=== PATIENT | male | born 1945 | race Caucasian/White ===

== ENCOUNTER 2018-03-22 07:25 | Day surgery (SDC) | payer MEDICARE, OTHER, SELFPAY ==
[2018-03-22] VITALS (10 sets, daily range): BP systolic 99–119; BP diastolic 71–90; PULSE 60–87; RESP 14–18; TEMP 36.1–36.5; O2SAT 93–98; BMI 32.3
--- NOTE | 2018-03-22 09:01 | PCM.HP.BLA ---
History and Physical Date of Admission: 03/22/18 HISTORY AND PHYSICAL ? Surendra Mcnally 1945 ? ? REFERRING PHYSICIAN: ~Fermin Irene DO ? CHIEF COMPLAINT: ~~Consult (Consult Inguinal hernia) ? HPI: uSrendra is a 72 year old male with a complaint of a bulge ~in his right inguinal region. ~The patient notes discomfort in this area with lifting, coughing and moving. ~The symptoms have increased, over the past few weeks. ? The patient notes no symptoms of bowel obstruction and denies nausea or vomiting. The patient was seen by his primary care physician ~who felt the patient has a hernia. ~Surendra was referred for evaluation and treatment. ? The patient is CT scan for follow-up of his known ~malignancy. ~On November 03, 2017 which demonstrated bilateral hernias with a right inguinal hernia, having small bowel present within the hernia defect. ? The patient had a transitional cell carcinoma and underwent robotic-assisted laparoscopic radical cystectomy in June 05, 2017. ~As a permanent right lower quadrant ileostomy. ? The patient is followed up by Dr. Grayson Benton and is currently receiving neoadjuvant chemotherapy surgical procedure left to be timed to his chemotherapy treatment. ? The patient also has a history of sick sinus syndrome, tachybradycardia syndrome and has a pacemaker. ~His computer installer is Dr. Eliecer Marcelo. ? We contacted Dr. Marcelo's office who noted that the patient was appropriate for surgical intervention locally and defined out for how many days. ~We can hold his anticoagulation prior to surgery and ~he will need a Lovenox bridge. ~ ? Dr. Benton's office had no specific concerns relative to timing of his surgical procedure relative to his immunotherapy ? The patient is being seen by me today at the request of Dr. Fermin Escalona DO for my opinion and advice regarding symptomatically right inguinal hernia. ? The patient returns today wanting postpone his surgery. ~He wanted to make sure that he is having no progression of his transitional cell carcinoma and wants to have CT scans prior to his surgical intervention. ~He understood he was due for CT scan in February. ~They also have additional questions concerning the surgical repair including questions related to mesh and the progression of the surgery and the timing of his Lovenox bridge. ? ? PAST?MEDICAL?HISTORY PAST MEDICAL HISTORY Diagnosis Date Acid reflux ? Atrial fibrillation (HCC) ? Atrioventricular block ? ? slow ventricular response rate (bradycardia) and severe pauses during ongoing AF Bradycardia ? ? severe bradycardia and pauses during AF; symptomatic Catheter-associated urinary tract infection (HCC) 02/14/2016 Chronic low back pain ? DJD (degenerative joint disease), lumbar ? DVT of lower extremity (deep venous thrombosis) (HCC) 2013 ? left leg Erectile dysfunction ? Essential hypertension ? Hiatal hernia ? History of recurrent UTI (urinary tract infection) ? Hypotestosteronism ? Lumbar disc herniation ? Pacemaker 06/2016 ? per Dr Marcelo Paroxysmal atrial fibrillation (HCC) ? ? previously paroxysmal; per Dr. Marcelo he plans to pursue sinus rhythm in the future Paroxysmal tachycardia (HCC) ? ? intermittent rapid ventricular response rates to AF; poorly controlled; medical therapy compromised by intermittent bradycardia Persistent atrial fibrillation (HCC) ? ? paroxysmal until recently in 01/2016 became persistent Primary cancer of bladder with metastasis to other site (HCC) ? ? prostate involvement; chemotherapy initiated 02/12/2016 Sick sinus syndrome (HCC) ? Sleep apnea ? ? suspected clinically but apparently not yet demonstrated by formal testing Syncope ? Tachycardia-bradycardia syndrome (HCC) ? ? symptomatic Urinary tract infection 02/14/2016 ? admitted to [facility] with UTI (E. Faecalis) probably catheter related ? ? PAST?SURGICAL?HISTORY PAST SURGICAL HISTORY Procedure Laterality Date CYSTOSCOPY ? ? ECHO ? 01/2014 ? LVEF 60%; mild LVH KNEE SURGERY HX Right 1981 ? orthoscope, Dr. Evans LAP UMBILICAL HERNIA REPAIR ? ? NEPHROSTOMY CATHETER ? 06/05/2016 ? cystectomy/ prostatectomy PAST SURGICAL HISTORY OF ? 2006 ? calcium removed from disk PHARMACOLOGIC NUCLEAR STRESS ? 10/12/2014 ? no ischemia; LVEF 64% PORTOCATH PLACEMENT Right 02/07/2016 REVISION OF KNEE JOINT Left 02/2015 TOTAL KNEE REPLACEMENT Left 1997 URETERAL STENT Right ? ? ? CURRENT?MEDICATIONS ? Current Outpatient Prescriptions: magnesium oxide (MAG-OX) 400 mg tablet Take 400 mg by mouth every other day. apixaban (ELIQUIS) 5 mg tab tab(s) Take 1 tablet by mouth twice daily. cetirizine (ZYRTEC) 10 mg tablet Take 1 tablet by mouth once daily. ondansetron (ZOFRAN, HYDROCHLORIDE,) 8 mg tablet Take 1 tablet by mouth every 8 hours as needed for Nausea/Vomiting. melatonin 3 mg Take 10 mg by mouth as needed. Pt takes 10 mg as needed metoprolol succinate ER (TOPROL XL) 50 mg 24 hr tablet Take 1 tablet by mouth twice daily. potassium chloride ER (KLOR-CON M20) 20 mEq tablet Take 1 tablet by mouth every evening. Omeprazole 40 mg capsule Take 1 capsule by mouth every morning. albuterol HFA (PROVENTIL HFA) 90 mcg/actuation inhaler Inhale 2 Puffs as instructed four times daily as needed (for cough or lung congestion). diltiazem CD (CARDIZEM CD) 180 mg 24 hr capsule Take 1 capsule by mouth twice daily. VIT C/VIT E ACETATE/LUTEIN/MIN (OCUVITE LUTEIN ORAL) Take 1 tablet by mouth once daily. ferrous sulfate (IRON, FERROUS SULFATE,) 325 mg (65 mg iron) tablet Take 325 mg by mouth daily with breakfast. iv contrast (will be provided with radiology test) CT Chest ABD/PEL-Inject, intravenously, once for 1 dose.No IV access, insert saline lock prior to the beginning of sedation, infusion, injection of imaging exam. Discontinue saline lock post exam. If Pt. has a central line or IVAD, may access for administration according to line specific nursing protocol. Once exam is complete flush line and de-access according to line specific nursing protocol in the CT contrast administration guidelines link. enteric contrast (will be provided with radiology test) For CT CHESTABD/PEL W IVCON Routine order Administer, As Directed One Time Only, via Oral, Rectal, both Oral and Rectal, Enteric Tube, Stoma or Indwelling Catheter, ~Enteric Contrast as designated per enteric contrast guidelines enoxaparin (LOVENOX) 40 mg/0.4 mL syrg Inject 0.4 mL subcutaneously every 24 hours. ? No current facility-administered medications for this visit. ? ALLERGIES: Amoxicillin; Bactrim [Sulfamethoxazole-Trimethoprim] ? PERSONAL HISTORY: SOCIAL?HISTORY Social History ~~Marital status: ~~~~~~~~~~~~Spouse name: ~~~~~~~~~~~~~~~~~~ ~~Years of education: ~~~~~~~~~~~~~~~~Number of children: ~~~~~~~~~~ ? Social History Main Topics ~~Smoking status: Former Smoker ~~~~~~~~~~~~~~~~~~~~~~~~~~~~~~~~~~~~~~~~~~~~~~~~~~~~~~~~ ~~~~~Packs/day: 0.50 ~~~~~Years: 1.00 ~~~ ~~~~~Types: Cigarettes ~~~~~Start date: 07/27/1964 ~~~~~Quit date: 07/27/1965 ~~Smokeless tobacco: Former User ~~~~~~~~~~~~~~~~~~ ~~~~~Types: Chew ~~~~~Quit date: 07/27/1985 ~~Alcohol use: No ~~~~~~~~~ ~~Drug use: No ~~~~~~~~~ Other Topics ~~~~~~~~~~~Concern Blood Transfusions ~~~~~No Caffeine Concern ~~~~~~~No ~~Comment:1-2 cups daily ? ? FAMILY HISTORY: FAMILY?HISTORY FAMILY HISTORY Problem Relation Age of Onset Stroke Father ? heart disease [OTHER] Father ? Breast Cancer Mother ? Stroke Mother ? heart disease [OTHER] Mother ? pacemaker [OTHER] Mother ? heart disease [OTHER] Brother ? heart disease [OTHER] Sister ? Stroke Brother ? Ischemic Heart Disease Brother ? Heart Brother ? COPD Sister ? Heart Sister ? ? REVIEW OF SYMPTOMS: ~~The review of systems data was entered by the nurse and reviewed by me ? There are no exam notes on file for this visit. ~ PHYSICAL EXAMINATION: ? General: ~The patient is 72 year old male, well nourished, well hydrated in no acute distress. ~The patient is oriented to time, place, and person. ? VITALS: Blood pressure 116/68, pulse 80.~There is no height or weight on file to calculate BMI.~ ? HEENT: ~Normal cephalic, ataumatic, pupils are equally round, sclera are anicteric, mucous membranes are moist, oropharynx is clear. ~Neck has no masses, asymmetry or lymphadenopathy. ~Thyroid is unremarkable. ? Respiratory: ~Clear to auscultation and percussion. ~Normal respiratory excursion and pattern. ? Cardiac: ~Examination is regular rate and rhythm. ? Abdominal exam: ~Soft, nontender, ~with no palpable masses. ~He has a right lower quadrant urostomy No hepatosplenomegaly. ~A large, reducible right inguinal hernia, smaller left inguinal, and a supraumbilical hernia ? Rectal exam: ~exam deferred ? Extremities: ~no clubbing, cyanosis or edema. ~No adenopathy. ? Other: ? ? LABORATORY VALUES: As Noted ? RADIOLOGIC STUDIES: ~As Noted ? Assessment ~ IMPRESSION: right inguinal hernia, current neoadjuvant treatment for bladder cancer, tachybradycardia syndrome, anticoagulation, pacemaker ? PLAN: ~~My plan is to perform a open right inguinal hernia repair with mesh. ~The planned surgical procedure was discussed extensively with the patient. ~The risks, benefits, anticipated outcomes and possible complications were mentioned. ~Surendra bassettands that all hernia repair surgery has a chance of recurrence and/or chronic post operative pain. ~My staff has also explained the procedure in understandable terms and the patient was given the option to take printed material concerning the planned procedure. ~The patient had the opportunity to ask questions concerning the planned procedure. ~The patient freely consents to the planned procedure. ? We contacted Dr. Marcelo's office who noted that the patient was appropriate for surgical intervention locally and defined out for how many days. ~We can hold his anticoagulation prior to surgery and ~he will need a Lovenox bridge. - ~We recommended holding his Eliquis for 5 days by her to surgery, starting his Lovenox. ~4 days prior to surgery and likely restarting his Eliquis the day after surgery. ~The patient and his understand the plan. ? We will order a CT scan of the chest, abdomen and pelvis, which the patient can obtain within the next week and we will plan for surgical intervention on March 22. ? We discussed all their~are additional questions and they were answered satisfactorily. ~ ? Dr. Benton's office had no specific concerns relative to timing of his surgical procedure relative to his immunotherapy ? My findings have been communicated to ~Fermin Escalona DO via shared medical record. ~This note will be forwarded to Dr. Fermin Escalona DO. ? Diagnoses: (R19.03) Right lower quadrant abdominal mass ~(primary encounter diagnosis) (R91.8) Lung nodules (K40.90) Right inguinal hernia (I44.30) Atrioventricular block (I49.5) Tachycardia-bradycardia syndrome (HCC) ? Anticipated CPT Code: open right inguinal hernia repair with mesh - 26304-456 ? Anticipated Anesthetic: MAC with local ? Patient weight: ~Blood pressure 116/68, pulse 80.~~~~BMI: ~There is no height or weight on file to calculate BMI. ? Planned antibiotic: clindamycin 600mg IVPB applications trainer to OR ? SCDs needed - Yes ~~~~~ Return to Clinic: The patient is instructed to follow-up with me 1 week post operatively. ? Rommel Gamble MD
--- NOTE | 2018-03-22 09:10 | HERN_PTH ---
PATIENT: GREG HAMPTON LOC: [facility] [place] U#:[id number] AGE/SX: 72/M ROOM: RE03/22/[address]: Dr. Rommel Gamble MD : 1945 BED: DIS: 03/22/2018 SPEC #: [id number] RECD: 03/22/18 14:42 STATUS: EM RECorazon #: [id number] GUSTAVO: 03/22/18 09:[address]: Rommel Gamble DEPT: SURGICAL PATHOLOGY RECD BY: Moiz Lennon ENTERED: 03/22/18 14:42 SP TYPE: Hernia OTHR DR: Dr. Fermin Escalona, DO Tissues: HERNIA Procedures: Surgery Specimen Level II HEADER OPERATION: Right inguinal hernia repair with mesh PRE-OP DIAGNOSIS: Right inguinal hernia TISSUE SUBMITTED: Right hernia sac MICROSCOPIC DIAGNOSIS Right hernia sac, herniorrhaphy: Hernia sac with fibrosis and recent hemorrhage. AM:nadeen 03/23/18 MICROSCOPIC DESCRIPTION Slides are reviewed. GROSS DESCRIPTION Received in fixative is one container labeled with the patient's name and designated right inguinal hernia sac. The specimen consists of a smooth, glistening fragment of dark reddish-acevedo soft tissue measuring 13 x 4.5 x 0.5 cm. Sections do not reveal nodularities or mass lesions. Water Jet Loom Fixer sections are submitted in one cassette. / AM:nadeen 03/22/18 TC:5 CPT: 39495
[2018-03-22] MEDS: Bupivacaine Mpf 0.5% 30 ML VIAL (10:42)
--- NOTE | 2018-03-22 10:47 | PCM.OPRPT ---
Report of Operation Date of Procedure: 03/22/18 Pre-Operative Diagnosis: incarcerated right inguinal hernia with scrotal component Post-Operative Diagnosis: incarcerated right inguinal hernia with scrotal component - indirect with sliding cord structures Surgery/Procedure Performed:: Right inguinal hernia repair - indirect with extra large Bard mesh perfix plug - Ref [id number], Lot [id number] - EXp - 02/21/2020 senior risk manager: None Type of Anesthesia:: MAC Anesthesiologist: Randolph Devlin - ASA3 Specimen's removed: hernia sac, ileoinguinal nerve Estimated Blood Loss (mL): 50 Fluids Replaced: 1000 Description of Procedure: The patient was brought to the operating suite. Sign in was performed verifying patient, site, procedure, position, and DVT prophylaxis with SCDs. Patient received 600mg clindamycin antibiotic prophylaxis. The patient has a large right inguinal hernia with a scrotal component. This was not reducible Following induction of IV sedation, the patients right inguinal region was prepped and draped in the usual fashion. Timeout was performed verifying patient, site, position. Local anesthetic was injected at the site of the anterior superior iliac spine for a regional block. The 50-50 mixture of lidocaine and Marcaine was then injected along the planned course of the skin incision. A linear incision was made and dissection carried down to the external oblique aponeurosis. Traversing veins ligated with 3-0 Vicryl ties and divided. Local anesthetic was then injected into the inguinal canal. A clean scalpel blade was used to open the lower canal in the direction of the fibers and a Metzenbaum scissor was used to further dissect and open the canal. Following this, the spermatic cord and large hernia was surrounded at the level of the pubic tubercle and brought up in the operative field with a Adi drain. The hernia sac was opened and the small bowel was retracted and returned to the abdominal cavity. Dissection was continued up to the internal ring clearing the cremasteric fibers. The patient was noted to have an indirect inguinal hernia. The hernia sac had a significant sliding component with the cord structures sliding into the sac. The large sac was dissected, excess excised and the sac closed reperitonealizing the cord structures. Dissection of the cord was undertaken which demonstrated no additional indirect inguinal hernia. An Extra large plug was placed and secured with 0 prolene sutures. Onlay mesh was secured using a Bard keyhole shaped mesh secured at the level of the pubic tubercle and along the ilioinguinal ligament inferiorly using an 0 Prolene suture. Next an 0 Prolene suture was used to secure the mesh to the transversus arch. The tails of the mesh were placed around the spermatic cord to create a new internal ring and the tails closed with a running 0 Prolene suture. The ileoinguinal nerve was excised due to the fact that it was in the way of the superior mesh secure. The spermatic cord was returned to its anatomic position. The external oblique was closed with a running 0 Prolene suture. Subcutaneous fat was closed with interrupted 3-0 Vicryl suture. Skin was closed with a running 4-0 Monocryl subcuticular sutures. Steri-Strips and bandages were applied. The patient was brought to recovery room in stable condition.
--- NOTE | 2018-03-22 12:24 | PCM.DC.HER ---
Discharge Diet: Light diet - advance as tolerated Discharge Activity: Return to Normal Activity, May Drive - when you are no longer taking narcotic pain medications., May Shower - with the bandage in place 1-2 days after surgery. Lifting Restrictions: 20 pounds for 8 weeks. Additional Activity Instructions:: Climbing stairs is fine, walking is encouraged. Sitting in bed may be uncomfortable. Sitting up using your lateral muscles (sitting up sideways) is usually more comfortable. Do not drive, work heavy equipment of sign legal documents for 24 hours. If your hernia repair was an ingunial repair, you may have scrotal swelling, an ice pack and/or athletic support can provide more comfort. Pain medications may cause nausea, you should typically eat light foods as you take your pain medications. Pain medications may also cause constipation. If you have difficulty with this, discuss with your doctor. Call your doctor if your incision/area has: Continuous Slow Oozing, Sudden Increased Bleeding, Increased Pain/ Swelling, Increased Redness, Foul Smelling Discharge Call your doctor if you observe: Fever of 101 or Higher Suture Line Care: Avoid Pulling/Pushing, Avoid Pinching/Bending Additional Dressing/Incision Instructions:: Leave the operative bandage on for 2-3 days. When you remove the bandage, leave the steri-strips on place until your follow up appointment or they fall off. Additional Instructions: take eliquis tonight at 6pm, take last lovenox shot today at 6pm Allergies/Adverse Reactions: Allergies amoxicillin [Amoxicillin] Allergy (Verified 03/15/18 11:07) Rash rivaroxaban [From Xarelto] Allergy (Verified 03/22/18 07:48) Other sulfamethoxazole [From Bactrim] Allergy (Verified 03/15/18 11:07) Hives trimethoprim [From Bactrim] Allergy (Verified 03/15/18 11:07) Hives Medications to take at Discharge Mv-Min/FA/Vit K/Lycop/Lut/Zeax [Ocuvite Eye Plus Multi Tablet] 1 ea PO DAILY 03/05/16 Ferrous Sulfate 325 mg PO DAILY #0 04/05/16 diltiazem CD 180 mg capsule,extended release 24 hr 180 mg PO BID #180 cap 10/17/17 melatonin 5 mg tablet 5 mg PO QHS PRN tab 12/22/17 magnesium oxide 400 mg tablet 400 mg PO QODAY 12/24/17 omeprazole 20 mg capsule,delayed release 20 mg PO DAILY cap 12/24/17 Apixaban [Eliquis] 5 mg PO BID 03/15/18 Atezolizumab [Tecentriq] 1,200 mg IV X1 03/15/18 Cetirizine HCl [Zyrtec] 10 mg PO DAILY PRN 03/15/18 Metoprolol Succinate [Toprol Xl] 50 mg PO BID 03/15/18 Potassium Chloride [K-Tab ER] 20 meq PO QDAY 03/15/18 albuterol sulfate HFA 90 mcg/actuation aerosol inhaler 2 puff INHALATION Q6H PRN PRN #8.5 g 03/15/18 Oxycodone [Oxyir] 5 mg PO Q6H PRN PRN 7 Days #14 tab 03/22/18 The following prescriptions were given: Oxycodone [Oxyir] 5 mg PO Q6H PRN PRN 7 Days #14 tab PRN Reason: Pain Primary Care Physician: Fermin Escalona DO [Primary Care Provider] - Test Results: Test results from this visit will be discussed in further detail at your follow-up appointment, if applicable. Please Follow Up With: Rommel Gamble MD - [phone] When: Plan to have a follow up appointment in 7 days. Call to schedule.
== END 2018-03-22 13:30 | disposition home or self-care (01) ==
LOC: SDC 07:25 → AC 07:27
PROVIDERS: Family Provider Family Medicine; PCP Family Medicine; Visit Provider Surgery
PROC: (CPT 49507; principal; 2018-03-22 09:00)
DX: K40.30 Unilateral inguinal hernia, with obstruction, without gangrene, not specified as recurrent (principal); C67.9 Malignant neoplasm of bladder, unspecified; I49.5 Sick sinus syndrome; K21.9 Gastro-esophageal reflux disease without esophagitis; I48.0 Paroxysmal atrial fibrillation; G89.29 Other chronic pain; M54.5 Low back pain; I10 Essential (primary) hypertension; Z87.440 Personal history of urinary (tract) infections; Z79.01 Long term (current) use of anticoagulants; Z95.0 Presence of cardiac pacemaker; G47.30 Sleep apnea, unspecified
CPT/HCPCS: 49507; 88302; 93005; J7120; A4216; C1781

== ENCOUNTER → 2019-05-31 15:36 | Outpatient (CLI) | payer MEDICARE, OTHER, SELFPAY ==
[2019-05-30 11:30] VITALS: BMI 32.9
[2019-06-04 03:06] LABS: Clam <0.10 kU/L (Class 0); Codfish <0.10 kU/L (Class 0); Corn <0.10 kU/L (Class 0); Egg, White <0.10 kU/L (Class 0); Milk (Cow) 0.17 kU/L (Class 0/I); Peanut <0.10 kU/L (Class 0); SCALLOP <0.10 kU/L (Class 0); SESAME SEED <0.10 kU/L (Class 0); Shrimp <0.10 kU/L (Class 0); Soybean <0.10 kU/L (Class 0); Strawberry <0.10 kU/L (Class 0); Walnut, (Food) <0.10 kU/L (Class 0); Wheat <0.10 kU/L (Class 0)
[2019-06-04 11:40] LABS: Banana 0.56 kU/L (Class II)
== END ==
PROVIDERS: Family Provider Family Medicine; PCP Family Medicine; Referring Provider Otolaryngology; Visit Provider Otolaryngology
DX: T78.40XA Allergy, unspecified, initial encounter (principal)
CPT/HCPCS: 36415; 86003

== ENCOUNTER → 2019-06-30 10:14 | Outpatient (CLI) | payer MEDICARE, OTHER, SELFPAY ==
[2019-06-08 11:51] VITALS: BMI 32.9
--- NOTE | 2019-06-30 16:09 | NEURO ---
NCS and/or EMG Patient Report HPI: Patient is a 74-year-old male who presented with numbness and tingling in the right hand. Patient is right-handed. Patient does not have H/O any injury to the right hand or any surgeries in the right hand. Patient does not have a history of diabetes. Patient has history of bladder and prostate cancer and has received chemotherapy and going through immunotherapy. 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 Physical Exam: Tenderness of the right wrist noted, Tinel's sign slightly positive at right wrist. Mild atrophy of the thenar and hypothenar muscles noted in right wrist. Decreased sensation to light touch is noted in right hand fingers, especially right thumb, index and middle fingers. Findings: 1. Right median sensory nerve response was non-recordable. 2. There is prolongation of distal latency of the right median motor nerve response with reduced amplitude of proximal CMAP and slightly decreased nerve conduction velocity. 3. There is prolongation of distal latency of right ulnar sensory nerve response. 4. There is decreased insertional activity and decreased recruitment of right abductor pollicis brevis and first dorsal interossei muscles. Impression: 1. 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 2. Findings are also consistent with right ulnar sensory neuropathy. Recommendation: 1. patient recommended to wear right hand and elbow splints as much as possible. 2. Patient recommended to avoid repetitive right hand movements and heavy lifting as well as leaning or sleeping on right elbow. 3. Patient recommended to see a hand surgeon for possible surgical release of right carpal tunnel syndrome if symptoms continues
== END ==
PROVIDERS: Family Provider Family Medicine; PCP Family Medicine; Referring Provider Family Medicine; Visit Provider Family Medicine
DX: G56.01 Carpal tunnel syndrome, right upper limb (principal)
CPT/HCPCS: 95886; 95909

== ENCOUNTER → 2019-10-05 | Outpatient (CLI) | payer MEDICARE, OTHER, SELFPAY ==
[2019-09-12 11:19] VITALS: BMI 33.1
--- NOTE | 2019-10-05 08:46 | ECHOD_ITS ---
Reason For Study: A. fib Procedure This was a 2D Doppler, Color Flow transthoracic echocardiogram. The exam was of adequate technical quality. Exam performed in department. Left Ventricle Normal LV size. Mild global left ventricular systolic dysfunction. The estimated ejection fraction is 45 %. Unable to assess diastolic dysfunction. Right Ventricle Normal RV size. ICD or pacer leads identified within the right ventricle. Normal systolic function. Atria The left atrium is severely enlarged. The right atrium is severely enlarged. ICD or pacer leads identified within the right atrium. Color flow Doppler compatible with a left to right interatrial shunt compatible with a small PFO versus ASD. Mitral Valve There is no mitral annular calcification. Normal mitral valve. Mild (1+) mitral valve insufficiency. Tricuspid Valve Normal tricuspid valve. Moderate (2+) tricuspid valve insufficiency. Right ventricular systolic pressure estimated to be 31 mmHg. Aortic Valve Trisinus/trileaflet aortic valve. Mild focal aortic valve calcification. Pulmonic Valve The pulmonic valve is not well visualized. Great Vessels Normal sized aortic root. Pericardium/Pleural No pericardial effusion. MMode/2D Measurements & Calculations LVIDd: 4.5 cm IVSd: 0.98 cm Ao root diam: 3.7 cm LVIDs: 2.8 cm LVPWd: 1.1 cm RVDd: 4.1 cm FS: 37.2 % LAV(MOD-bp): 151.6 ml LA A4 area: 39.3 cm2 LA dimension(2D): 5.2 cm LAV(MOD-bp) Indexed: 73.4 ml/m2 LAV(MOD-sp2): 124.6 ml LAV(MOD-sp4): 158.5 ml RA A4 area: 24.0 cm2 Doppler Measurements & Calculations MV E max cuate: 71.5 cm/sec Ao V2 max: 88.9 cm/sec LV V1 max: 60.8 cm/sec Ao max P.2 mmHg LV V1 max P.5 mmHg PA V2 max: 77.5 cm/sec TR max cuate: 262.3 cm/sec TR max P.6 mmHg Interpretation Summary Mild global left ventricular systolic dysfunction. The estimated ejection fraction is 45 %. The left atrium is severely enlarged. The right atrium is severely enlarged. Mild (1+) mitral valve insufficiency. Moderate (2+) tricuspid valve insufficiency. Mild focal aortic valve calcification. Right ventricular systolic pressure estimated to be 31 mmHg. Unable to assess diastolic dysfunction. ICD or pacer leads identified within the right atrium ICD or pacer leads identified within the right ventricle. Color flow Doppler compatible with a left to right interatrial shunt compatible with a small PFO versus ASD. Ordering Physician: Eliecer Marcelo Referring Physician: Abner Escalona M.D. Performed By: Scarlett Mcgovern RDCS
== END | disposition home or self-care (01) ==
LOC: CVS 08:46
PROVIDERS: PCP Family Medicine; Referring Provider Internal Medicine Cardiovascular Disease; Visit Provider Internal Medicine Cardiovascular Disease
DX: I48.91 Unspecified atrial fibrillation (principal); I48.92 Unspecified atrial flutter; Z79.899 Other long term (current) drug therapy
CPT/HCPCS: 93306

== ENCOUNTER → 2020-03-05 12:44 | Outpatient (CLI) | payer MEDICARE, OTHER, SELFPAY ==
[2020-02-17 16:38] VITALS: BMI 32.5
--- NOTE | 2020-03-05 12:44 | VDLE_ITS ---
Reason For Study: Pain RIGHT LEFT GSV is normal. CFV is compressible, spontaneous, phasic, CFV is compressible, spontaneous, phasic, competent, and demonstrates normal competent and demonstrates normal augmentation. augmentation. FV is compressible, spontaneous, phasic, competent and demonstrates normal augmentation. POP V is compressible, spontaneous, phasic, competent and demonstrates normal augmentation. T/P Trunk is compressible. PTV is compressible. RT PerV is compressible. Procedure Exam performed in department. A preliminary report was called and/or faxed to Dr. Escalona. Interpretation Summary Deep veins of the right lower extremity are patent and compressible segmentally. There is no evidence of right lower extremity deep vein thrombosis. Valvular competence appears intact within the proximal deep venous system on the right . The right great saphenous vein appears patent and compressible segmentally. Ordering Physician: Fermin Escalona Referring Physician: Fermin Escalona Performed By: Cyndi Mcnamara RDCS, RVT
== END ==
PROVIDERS: PCP Family Medicine; Referring Provider Family Medicine; Visit Provider Family Medicine
DX: M79.661 Pain in right lower leg (principal)
CPT/HCPCS: 93971

== ENCOUNTER 2020-05-11 07:29 | Day surgery (SDC) | payer MEDICARE, OTHER, SELFPAY ==
[2020-03-05 14:28] VITALS: BMI 32.8
--- NOTE | 2020-03-27 12:32 | HP_ITS ---
I have re-examined the patient. There are no clinical changes since date of exam. Intake Intake Visit Reasons: RIGHT WRIST Is patient in pain?: Yes Allergies Iodinated Contrast Media Allergy (Intermediate, Verified 03/22/20 12:46) facial swelling amoxicillin [Amoxicillin] Allergy (Verified 03/22/20 12:46) Rash rivaroxaban [From Xarelto] Allergy (Verified 03/22/20 12:46) Other sulfamethoxazole [From Bactrim] Allergy (Verified 03/22/20 12:46) Hives trimethoprim [From Bactrim] Allergy (Verified 03/22/20 12:46) Hives [facility] Social History (Updated 03/27/20 @ 12:[address] Sera Torres DO) Smoking Status: Never smoker alcohol intake: never substance use type: does not use what type of physical activity do you participate in: walking HPI RIGHT WRIST: Surgical H&P: Yes Details: Parts of this documentation were recorded by a scribe, this documentation accurately reflects the service provided and the decisions made by me, Dr. Sera Torres DO 03/22/20 1235. GREG HAMPTON is a 74 year old M here today referred by Dr Escalona for right wrist pain. Patient notes that he has tingling of his right hand. He notes that he has had tingling for about 3-4 years and progressively worsening. Patient complains that his tingling into all of his fingers. He states that he has weakness but denies dropping items. He notes that he has an EMG which is here for review. Patient denies any injection. He has a wrist brace which he sleeps with and it is helpful. He also wears his brace when he drives for long distances. ROS Musc Reports numbness, Reports tingling Skin/Breast Reports system reviewed and no additional complaints, except as docu Neuro Yes system reviewed and no additional complaints, except as docu, Yes numbness, Yes tingling Ortho Exam Right Wrist/Hand Skin/Wound: Yes CDI, No Swelling, No Ecchymosis Right Wrist: Yes Thenar Atrophy Motor: EPL: 5, FDP-2: 4, 1st Dorsal Interosseous: 5, APB: 4 Sensation: Radial: I, Ulnar: I, Median: D Left Wrist/Hand Skin/Wound: No Swelling, No Ecchymosis Assessment & Plan Problems 1. Carpal tunnel syndrome of right wrist G56.01 Plan Educated the patient about the anatomy of the hand and etiology of his pain. Spoke with him about the surgery procedure for carpal tunnel syndrome. Explained that the surgery prevents his atrophy from worsening. Spoke with him about the recovery. Reviewed the pre-operative plans with the patient. Risks and benefits of the procedure were fully explained, including but not limited to infection, neurovascular injury, continued pain, arthritis, stiffness, need for further surgery, re-injury, DVT, PE, general risks of anesthesia, and loss of limb or life. The patient understands all the risks and does wish to proceed with written consent. Follow up for 2 week post op or sooner if pain, swelling, numbness or associated symptoms, or concerns develop. All questions answered. Patient in agreement of plan. We discussed the current risk associated COVID-19. While it is understood that there is a community spread of COVID 19 the risk of andrew COVID-19 while at [facility] is very low, however, the risk cannot be completely mitigated because of the community spread of the disease. We discussed in detail the risk of exposure to and or potential harm posed by the COVID-19 virus with having a surgery/procedure at this time versus the risk of delaying the surgery/procedure. Is not possible to know either the risk of delaying the surgery procedure or chance of getting an infection with perfect accuracy, but a joint decision was made to proceed at this time with a schedule surgery/procedure as indicated on the consent form. Patient was notified that we will need to comply with any screening or testing [facility] wishes to perform or that surgery may be delayed for any positive results. Orders Orders: Wrist min 3 Views Today M25.531 Coding Level of Care Code 04528 Diagnoses Carpal tunnel syndrome of right wrist G56.01 03/27/20 1232 <Electronically signed by Sera champagne DO> Date _ Sera Torres DO
[2020-04-26 08:30] VITALS: BMI 32.8
[2020-05-11] VITALS (7 sets, daily range): BP systolic 97–112; BP diastolic 60–72; PULSE 75–85; RESP 16–20; TEMP 36.1–36.5; O2SAT 93–98; BMI 32.8
[2020-05-11] MEDS: Lactated Ringers 1,000 ML 75 ML IV (08:39)
[2020-05-11] MEDS: Cefazolin 2 GM in 0.9% Normal Saline 100 ML IV (09:17)
[2020-05-11] MEDS: Mupirocin Ointment 22gm Tube 1 APPLIC (09:42)
--- NOTE | 2020-05-11 09:53 | OP.PCM_ITS ---
Report of Operation Date of Procedure: 05/11/20 Pre-Operative Diagnosis: right carpal tunnel syndrome Post-Operative Diagnosis: same Surgery/Procedure Performed:: right carpal tunnel release Type of Anesthesia:: Palmira Dalal Anesthesiologist: Juan Diego Frank Estimated Blood Loss (mL): min Fluids Replaced: 400cc Description of Procedure: Preoperative note Patient is a 74 year old patient with nerve conduction study confirming carpal tunnel syndrome. Patient failed conservative treatment for his carpal tunnel elected proceed with right carpal tunnel release. Risks benefits and alternatives surgery discussed with patient. Risks including but not limited to blood loss, blood clot, infection, neurovascular injury, failure procedure, loss of life and loss of limb. Patient is aware like proceed with right carpal tunnel release. Operative note Patient seen and examined preoperative holding area. right hand was marked. History and physical and consent reviewed. Patient was brought to the operating room placed supine on the operating table. Sign in, anesthesia, antibiotics were administered. right upper extremity was prepped and draped after Palmira block was initiated. All bony prominences well-padded SCDs placed on bilateral lower extremities. We marked out our incisions for our carpal tunnel release at the intersection of Jose Ramon's line in the fourth ray flexed. We extended about a centimeter and a half. Timeout was performed. We then checked ensure that the Gering block was working with pickups which it was. We then used a 15 blade to make a skin incision. We then dissected down tenotomy syllable of the transverse carpal ligament. We then used a new 15 blade cut through the transverse carpal ligament down to the level of the median nerve. We then further released the median nerve the combination of the 15 blade and tenotomies. The nerve was grayish in color and adherent to the transverse carpal ligament volarly. We released the transverse carpal ligament distally to the fat pad and then proximally under standard technique. We then palpated to ensure that we released all of the transverse carpal ligament which we did. We irrigated the incision with copious amounts of sterile saline. All bleeders were coagulated. The incision was closed with interrupted 4-0 nylon stitches. Tourniquet was deflated. Patient tolerated procedure well there were no complications. Patient transferred to recovery room in stable condition. Postoperative note Hospital pharmacy has prescription Leave dressing clean dry and intact Follow-up in 2 weeks Call with concerns This note was generated with [employer] software. It may contain incorrect words, spelling, and punctuation that were not noted in checking the note before signing
--- NOTE | 2020-05-11 09:53 | DCINST_ITS ---
Discharge Diet: No Restrictions - Leave dressing on until seen in postop clinic in 10-14 days for suture removal, keep dressing clean, dry, intact; change dressing if gets wet/dirty, call with concerns Discharge Activity: May Not Drive May shower in (days): 1 Ice area for (Minutes): 20 - Every hour while awake. Weight Bearing Status: Weight bearing as tolerated Keep extremity elevated above heart level: Operative Extremity Call your doctor if your incision/area has: Continuous Slow Oozing, Sudden Increased Bleeding, Increased Pain/ Swelling, Increased Redness, Foul Smelling Discharge Call your doctor if you observe: Fever of 101 or Higher, Coldness, Increased Pain, Numbness or Tingling, Change in Color, Calf discomfort Allergies/Adverse Reactions: Allergies Iodinated Contrast Media Allergy (Intermediate, Verified 05/01/20 11:05) facial swelling amoxicillin [Amoxicillin] Allergy (Verified 05/01/20 11:05) Rash banana Allergy (Verified 05/01/20 11:05) Swelling rivaroxaban [From Xarelto] Allergy (Verified 05/01/20 11:05) Other sulfamethoxazole [From Bactrim] Allergy (Verified 05/01/20 11:05) Hives trimethoprim [From Bactrim] Allergy (Verified 05/01/20 11:05) Hives Medications to take at Discharge Mv-Min/FA/Vit K/Lycop/Lut/Zeax [Ocuvite Eye Plus Multi Tablet] 1 ea PO DAILY 03/05/16 epinephrine 0.3 mg/0.3 mL injection, auto-injector 0.3 mg IM Q10-15M #2 ea 05/30/19 omeprazole 20 mg capsule,delayed release 20 mg PO DAILY #90 cap 08/30/19 diltiazem HCl 180 mg capsule,extended release 24 hr 180 mg PO BID #180 cap 11/01/19 magnesium oxide 400 mg (241.3 mg magnesium) tablet 400 mg PO QODAY #60 tab 11/01/19 metoprolol succinate 50 mg tablet,extended release 24 hr 50 mg PO BID #180 tab 11/01/19 potassium chloride 10 mEq tablet,extended release 20 meq PO QDAY #90 tab 02/17/20 hydrochlorothiazide 25 mg tablet 25 mg PO DAILY tab 03/05/20 apixaban 5 mg tablet 5 mg PO BID #60 tab 03/06/20 Levocetirizine Dihydrochloride 5 mg PO DAILY PRN 04/05/20 Hydrocodone Bitart/Apap 5-325 [[place] 5MG-325MG] 1 - 2 tab PO Q6H PRN PRN 5 Days #40 tab 05/11/20 The following prescriptions were given: Hydrocodone Bitart/Apap 5-325 [[place] 5MG-325MG] 1 - 2 tab PO Q6H PRN PRN 5 Days #40 tab PRN Reason: Pain Transmission Status: Sent to [facility] Primary Care Physician: Fermin Escalona DO [Primary Care Provider] - Test Results: Test results from this visit will be discussed in further detail at your follow- up appointment, if applicable. Please Follow Up With: Sera Torres DO - [phone]
[2020-05-11] MEDS: HYDROcodone Bitartrate/Apap 5/325 Tablet PO (10:40)
== END 2020-05-11 11:47 | disposition home or self-care (01) ==
LOC: SDC 07:29 → AC 07:29
PROVIDERS: Anesthesiology; PCP Family Medicine; Referring Provider Orthopaedic Surgery; Visit Provider Orthopaedic Surgery
PROC: (CPT 64721; principal; 2020-05-11 08:45)
DX: G56.01 Carpal tunnel syndrome, right upper limb (principal); I48.91 Unspecified atrial fibrillation; I10 Essential (primary) hypertension; Z95.0 Presence of cardiac pacemaker; K21.9 Gastro-esophageal reflux disease without esophagitis; E78.00 Pure hypercholesterolemia, unspecified; Z20.828 Contact with and (suspected) exposure to other viral communicable diseases; Z79.02 Long term (current) use of antithrombotics/antiplatelets; Z79.899 Other long term (current) drug therapy
CPT/HCPCS: 64721; 87635; C9803; J7120; A4216; U0003

== ENCOUNTER → 2020-06-14 16:11 | Outpatient (CLI) | payer MEDICARE, OTHER, SELFPAY ==
[2020-05-29 15:06] VITALS: BMI 32.9
[2020-06-15 07:38] LABS: SARS-COV-2 TOTAL ABS Reactive (Nonreactive)
== END ==
PROVIDERS: PCP Family Medicine; Referring Provider Nurse Practitioner Family; Visit Provider Nurse Practitioner Family
DX: U07.1 COVID-19 (principal)
CPT/HCPCS: 36415; 86769

== ENCOUNTER → 2022-01-03 | Outpatient (CLI) | payer MEDICARE, OTHER, SELFPAY ==
--- NOTE | 2022-01-03 09:54 | ECHOD_ITS ---
Reason For Study: Arrhythmia Procedure This was a 2D Doppler, Color Flow transthoracic echocardiogram. The study was technically difficult. Exam performed in department. Left Ventricle Normal LV size. Mild global left ventricular systolic dysfunction. The estimated ejection fraction is 45 %. Unable to assess diastolic dysfunction. Right Ventricle Normal RV size. ICD or pacer leads identified within the right ventricle. Normal systolic function. Atria The left atrium is severely enlarged. The right atrium is severely enlarged. ICD or pacer leads identified within the right atrium. Color flow Doppler compatible with a left to right interatrial shunt compatible with a small PFO versus ASD. Mitral Valve There is mild mitral annular calcification. Normal mitral valve. Mild-Moderate (1-2+) mitral valve insufficiency. Tricuspid Valve Normal tricuspid valve. Moderate (2+) tricuspid valve insufficiency. Right ventricular systolic pressure estimated to be 33 mmHg. Aortic Valve Trisinus/trileaflet aortic valve. Mild focal aortic valve calcification. Pulmonic Valve The pulmonic valve is not well visualized. Great Vessels Normal sized aortic root. Pericardium/Pleural No pericardial effusion. MMode/2D Measurements & Calculations LVIDd: 4.8 cm IVSd: 1.3 cm Ao root diam: 3.8 cm LVIDs: 2.8 cm LVPWd: 1.2 cm LA dimension: 5.4 cm RVDd: 4.5 cm FS: 41.2 % LAV(MOD-bp): 145.8 ml LA A4 area: 40.0 cm2 RA A4 area: 30.2 cm2 LAV(MOD-bp) Indexed: 74.5 ml/m2 LAV(MOD-sp2): 111.6 ml LAV(MOD-sp4): 165.7 ml Doppler Measurements & Calculations MV E max cuate: 69.3 cm/sec Ao V2 max: 82.5 cm/sec LV V1 max: 57.7 cm/sec Ao max P.7 mmHg LV V1 max P.3 mmHg MR max cuate: 514.9 cm/sec PA V2 max: 90.9 cm/sec TR max cuate: 273.9 cm/sec MR max P.0 mmHg TR max P.0 mmHg MR mean cuate: 395.1 cm/sec MR mean P.8 mmHg MR VTI: 159.1 cm ECHO/Echo Complete Interpretation Summary The study was technically difficult. Mild global left ventricular systolic dysfunction. The estimated ejection fraction is 45 %. The left atrium is severely enlarged. The right atrium is severely enlarged. There is mild mitral annular calcification. Mild-Moderate (1-2+) mitral valve insufficiency. Moderate (2+) tricuspid valve insufficiency. Mild focal aortic valve calcification. Right ventricular systolic pressure estimated to be 33 mmHg. Unable to assess diastolic dysfunction. ICD or pacer leads identified within the right atrium ICD or pacer leads identified within the right ventricle. Color flow Doppler compatible with a left to right interatrial shunt compatible with a small PFO versus ASD. Ordering Physician: Eliecer Marcelo Referring Physician: Abner Escalona M.D. Performed By: Wild Nuñez RCS
== END | disposition home or self-care (01) ==
LOC: CVS 09:51
PROVIDERS: PCP Family Medicine; Referring Provider Internal Medicine Cardiovascular Disease; Visit Provider Internal Medicine Cardiovascular Disease
DX: R55 Syncope and collapse (principal); I48.20 Chronic atrial fibrillation, unspecified; I49.5 Sick sinus syndrome; Z86.79 Personal history of other diseases of the circulatory system; Z95.0 Presence of cardiac pacemaker
CPT/HCPCS: 93306

== ENCOUNTER 2022-07-24 10:50 | Inpatient (IN) | payer MEDICARE, OTHER, SELFPAY ==
[2022-07-24] VITALS (14 sets, daily range): BP systolic 107–132; BP diastolic 72–90; PULSE 88–137; RESP 18–32; TEMP 36.2–37.2; O2SAT 94–98; BMI 30.8
--- NOTE | 2022-07-24 11:00 | EKG12_ITS ---
Test Reason : sob Blood Pressure : / mmHG Vent. Rate : 115 BPM Atrial Rate : 000 BPM P-R Int : 000 ms QRS Dur : 086 ms QT Int : 312 ms P-R-T Axes : 000 035 019 degrees QTc Int : 431 ms Atrial fibrillation with rapid ventricular response Nonspecific ST abnormality Abnormal ECG Confirmed by REIJ HILL, FABRICIO ([id number]), features editor ARTUR PATRICK ([id number]) on 07/29/2022 12:25:54 PM Referred By: Angelita Confirmed By:FABRICIO MENDOZA MD
--- NOTE | 2022-07-24 11:09 | EDS_ITS ---
HPI History of Present Illness Chief Complaint: Shortness of Breath Narrative Narrative: Patient presents with progressive shortness of breath, edema exertional dyspnea and orthopnea the past few days. No fever or chills he has a slight cough which is nonproductive. He has a history of prostate and bladder cancer with metastases he underwent treatment about a week ago. [facility] Medical History Acute cystitis Acute on chronic anemia Chest pain Chronic atrial fibrillation Chronic atrial fibrillation Chronic indwelling Figueroa catheter Encounter for long-term current use of high risk medication Essential hypertension Gastroesophageal reflux disease H/O valvular heart disease Hernia History of right ureteral stent Iron deficiency anemia Osteoarthritis Other penitentiary (current) drug therapy Prostate cancer Sick sinus syndrome Syncope and collapse Tachycardia Transitional cell carcinoma of bladder Home Medications epinephrine 0.3 mg/0.3 mL injection, auto-injector 0.3 mg (0.3 mL) IM Q10-15M #2 ea 05/30/19 [Rx Last Taken Unknown] omeprazole 20 mg capsule,delayed release 20 mg PO DAILY GERD #90 caps 08/07/21 [Rx Last Taken Unknown] metoprolol succinate 50 mg tablet,extended release 24 hr 50 mg PO BID #180 tabs 11/20/21 [Rx Last Taken Unknown] vit C,E,zinc,copper-crvse7g 250 mg-lutein 5 mg-zeaxanthin 1 mg capsule (Ocuvite Adult 50 Plus) 1 cap PO DAILY 12/11/21 [History Last Taken Unknown] diltiazem HCl 180 mg capsule,extended release 24 hr See Rx Instructions .Route .COMPLEX #180 caps 02/03/22 [Rx Last Taken Unknown] apixaban 5 mg tablet (Eliquis) 5 mg PO BID #60 tabs 04/10/22 [Rx Last Taken Unknown] potassium chloride 20 mEq tablet,extended release(part/cryst) (Klor-Con M) 20 meq PO BID 07/16/22 [History Last Taken Unknown] Allergy/AdvReac Type Severity Reaction Status Date / Time Iodinated Contrast Media Allergy Intermediate facial Verified 07/24/22 10:50 swelling amoxicillin [Amoxicillin] Allergy Rash Verified 07/24/22 10:50 banana Allergy Swelling Verified 07/24/22 10:50 rivaroxaban [From Xarelto] Allergy Other Verified 07/24/22 10:50 sulfamethoxazole Allergy Hives Verified 07/24/22 10:50 [From Bactrim] trimethoprim [From Bactrim] Allergy Hives Verified 07/24/22 10:50 Family History Father CVA (cerebral vascular accident) Mother Breast cancer Brother CAD (coronary artery disease) Brother CVA (cerebral vascular accident) Surgical History H/O nephrostomy History of back surgery History of knee replacement Hx of hernia repair Presence of cardiac pacemaker Social History Smoking Status: Never smoker alcohol intake: never substance use type: does not use what type of physical activity do you participate in: walking ROS ROS ED ROS Narrative Past medical history: Reviewed, see above Medications: Reviewed does include Eliquis Social history: Noncontributory Review of systems: All systems negative except as indicated General: No fever Eyes: No visual changes ENT: No upper airway congestion, normal voice Neck: No neck pain Cardiovascular: No chest pain Respiratory: Shortness of breath Gastrointestinal: No abdominal pain, nausea vomiting or diarrhea Genitourinary: No dysuria Musculoskeletal: Generalized edema Skin: No rash Neurological: No memory loss, confusion or any focal weakness Psych: No recent behavioral changes Hematologic: He is prone to easy bleeding secondary to the Eliquis EXAM Physical Exam Narrative Exam Narrative: Physical exam General: Patient appears somewhat uncomfortable Head: Normocephalic, Atraumatic Eyes: Conjunctiva not pale ENT: Moist mucous membranes Neck: Supple, Nontender, No lymphadenopathy Cardiovascular: Irregular tachycardia no obvious murmur Chest wall: Port site is intact without any signs of infection Respiratory: He is slightly tachypneic, he has bilateral coarse breath sounds. Abdomen: Soft, Nontender, Nondistended. Urostomy site is intact. Back: Nontender, Normal Inspection. Negative for: CVA tenderness Extremities: Nontender, symmetric bilateral edema both upper and lower extremities Skin: Normal color, No rash Neurological: Alert, Normal Strength, Normal Sensation Psychological: Normal affect Const Vital Signs: 07/24/22 10:51 07/24/22 11:19 07/24/22 11:22 Temperature 97.1 F L Temperature Source Temporal Pulse Rate 137 H 104 H Respiratory Rate 32 H Respiratory Effort Short of Breath Blood Pressure 126/90 H Blood Pressure Mean 102 Pulse Ox 96 Oxygen Delivery Method Room Air Oxygen Flow Rate (L/min) 07/24/22 12:00 Temperature Temperature Source Pulse Rate Respiratory Rate 24 H Respiratory Effort Blood Pressure Blood Pressure Mean Pulse Ox 95 Oxygen Delivery Method Nasal Cannula Oxygen Flow Rate (L/min) 2 MDM MDM Lab Data Labs: Laboratory Results - last 24 hr 07/24/22 07/24/22 07/24/22 11:15 11:15 11:15 WBC 1.4 L* RBC 2.68 L Hgb 8.5 L Hct 25.6 L MCV 95.5 H MCH 31.7 MCHC 33.2 RDW Std Deviation 54.7 H RDW Coeff of Foster 15.8 H Plt Count 45 L* MPV 10.7 Immature Gran % (Auto) 1.500 H Neut % (Auto) 44.5 L Lymph % (Auto) 22.2 [place] % (Auto) 31.1 H Eos % (Auto) 0.7 Baso % (Auto) 0.0 Absolute Neuts (auto) 0.6 L Absolute Lymphs (auto) 0.30 L Nucleated RBC % 0 Differential Comment SCANNED Diff Path Review May foll Sodium 134 L Potassium 3.7 Chloride 104 Carbon Dioxide 21.0 Anion Gap 9 BUN 16 Creatinine 1.04 Estim Creat Clear Calc 54.73 Est GFR (MDRD) Af Amer 89 Est GFR (MDRD) Non-Af 73 BUN/Creatinine Ratio 15.4 Glucose 137 H Calcium 8.5 Total Bilirubin 1.70 H AST 43 H ALT 36 Alkaline Phosphatase 104 Troponin I High Sens 11 B-Natriuretic Peptide 328.4 H Total Protein 6.3 L Albumin 2.4 L Globulin 3.9 Albumin/Globulin Ratio 0.6 L Radiography Diagnostic Testing: Clinical Impression(s) from Imaging Studies Chest X-Ray 07/24/22 11:30 IMPRESSION: Right lung pneumonia. Electronically Signed: Octavio Verde MD at 12:01 EST , X-ray interpreted by me shows right-sided pneumonia. EKG Initial EKG: Comments: A. fib with RVR at 115. Normal QTc interval. Nonspecific changes throughout. Otherwise unremarkable EKG Interpreted by emergency Dr. Treatment and Re-Evaluation Narrative: Insert MDM Patient was seen by me in the emergency department. Initially his pulse ox was relatively normal but it decreased to 86% he was placed on oxygen. He is found to have a right-sided pneumonia although it is hard to compare to prior x-ray since the only other x-ray I see in our system was from 2016. I gave him antibiotics since he is neutropenic. Respiratory panel and COVID were ordered. Blood cultures were ordered. Interpretations: EKG interpreted by me see above X-ray interpreted by me see above I was able to obtain independent information from: who showed me the MyChart information and was able to independently tell me most of the patient's information. I discussed the case with the following consultants: Medicine about admission Oncology, I talked with Dr. Benton about his care. Patient does have cancer he is immunocompromised it does impact his pneumonia and the severity of pneumonia and hypoxia I did consider CT angiogram however the likely cause of this patient's hypoxia is pneumonia. Critical Care Time Critical Care Time: Yes Critical care time (excluding procedures): Including time spent:, Discussing w/Patient &/or Family/Receiving Specialist, Discussing w/Consultants, Arranging Admission or Transfer, Performing Direct Patient Care at Bedside and - (30 minutes.) Discharge Plan Triage Chief Complaint: Shortness of Breath ED Provider: Eliecer Garcia Dx/Rx/DC Orders Clinical Impression: Hypoxia, Pneumonia, Sepsis, Atrial fibrillation with rapid ventricular response, Prostate cancer metastatic to multiple sites Prescriptions: No Action epinephrine 0.3 mg/0.3 mL auto-injector 0.3 mg IM Q10-15M Qty: 2 2RF Rx Instructions: until response Ocuvite Adult 50 Plus 250-5-1 mg capsule 1 cap PO DAILY omeprazole 20 mg capsule,delayed release(DR/EC) 20 mg PO DAILY Qty: 90 3RF metoprolol succinate 50 mg tablet extended release 24 hr 50 mg PO BID Qty: 180 3RF diltiazem HCl 180 mg capsule,extended release 24hr See Rx Instructions .ROUTE .COMPLEX Qty: 180 4RF Hold Instructions: per Dr. Benton: elevated creat with chemo Dose Instruction: TAKE 1 CAPSULE BY MOUTH TWICE A DAY Rx Instructions: TAKE 1 CAPSULE BY MOUTH TWICE A DAY Eliquis 5 mg tablet 5 mg PO BID Qty: 60 12RF Rx Instructions: will stop 1 day prior potassium chloride [Klor-Con M20] 20 mEq tablet,ER particles/crystals 20 meq PO BID Primary Care Provider: Fermin Escalona Referrals: Fermin Escalona, [Primary Care Provider] - Disposition Disposition: Acute Care Hospital [facility]
[2022-07-24 11:25] LABS: Absolute Neutrophil Count 0.6 X10^3/uL (2.0-7.7); Eosinophil# 0.01 X10^3/uL; Eosinophils% 0.7 % (0-5); Hematocrit 25.6 % (40-54); Hemoglobin 8.5 g/dL (13.0-16.5); Lymphocyte % 22.2 % (19-41); Mean Corp Hgb Conc 33.2 g/dL (32-36); Mean Corpuscular Hgb 31.7 pg (27.0-32.0); Mean Corpuscular Volume 95.5 fL (80-94); Mean Platelet Vol. 10.7 fl (6.2-12.0); Monocyte# 0.42 X10^3/uL; Monocyte% 31.1 % (0-10); NRBC Flagged by Analyzer 0 % (0-5); Neutrophil % 44.5 % (47-70); POSITIVE COUNT YES; POSITIVE DIFFERENTIAL YES; RBC Distribution Width CV 15.8 % (11.6-14.6); RBC Distribution Width SD 54.7 fl (35.1-43.9); Red Blood Count 2.68 M/mm3 (4.6-6.2); White Blood Count 1.4 K/mm3 (4.4-11.0)
--- NOTE | 2022-07-24 11:30 | RAD_ITS ---
EXAM: XR CHEST, 1 VIEW CLINICAL INDICATION: SOB. TECHNIQUE: Frontal view of the chest. This report was created using [employer] report generation technology. COMPARISON: 04/03/2016. FINDINGS: LUNGS AND PLEURAL SPACES: Pulmonary hypoinflation. Right pleural fluid and/or thickening. Multiple ill-defined and extensive infiltrates in the right lung. No pneumothorax. HEART: Unremarkable. Cardiac silhouette not enlarged. MEDIASTINUM: Central airways and mediastinal contour are unremarkable. BONES/JOINTS: Unremarkable. SOFT TISSUES: Unremarkable. TUBES, LINES AND DEVICES: Dual-chamber pacing lead tips remain in the right atrium and right ventricle. Right IJ approach portacatheter tip remains in the distal SVC. RAD/Chest 1 View (Portable) IMPRESSION: Right lung pneumonia. Electronically Signed: Octavio Verde MD at 12:01 EST ,
[2022-07-24 11:40] LABS: ALB/GLOB Ratio 0.6 RATIO (0.9-2.4); AST(SGOT) 43 U/L (15-37); Alanine Aminotransfer ALT/SGPT 36 U/L (16-61); Albumin, Serum 2.4 g/dL (3.2-5.0); Alkaline Phosphatase 104 U/L (45-117); Anion Gap 9 (5-15); BUN 16 mg/dL (7-18); BUN/Creat Ratio 15.4 RATIO (10-20); Calcium,Total 8.5 mg/dL (8.5-10.1); Chloride 104 mmol/L (98-107); Creatinine, Serum 1.04 mg/dL (0.70-1.30); Differential Indicated SCAN CRITERIA MET; EST Glomerular Filtration Rate 73 mL/min (>60); Est Glom Filt Rate - Afr Amer 89 mL/min (>60); Estimated Creatinine Clearance 54.73 ml/min; Globulin 3.9 g/dL (2.2-4.2); Glucose 137 mg/dL (74-106); Potassium 3.7 mmol/L (3.5-5.1); Protein, Total 6.3 g/dL (6.4-8.2); Sodium Level 134 mmol/L (136-145); Troponin-I HS 11 pg/mL (3.0-78.0)
[2022-07-24 11:44] LABS: Platelet Count 45 K/mm3 (150-450)
[2022-07-24 12:16] LABS: Differential Comment SCANNED
[2022-07-24 12:20] LABS: BNP,B-Type NATRIURETIC PEPTIDE 328.4 pg/mL (0-100)
--- NOTE | 2022-07-24 13:06 | NURSING ---
PCU TERELETSKY HYPOXIA, PNEUMONIA
[2022-07-24 13:36] LABS: Lactic Acid 1.2 mmol/L (0.4-1.9)
--- NOTE | 2022-07-24 15:14 | CT_ITS ---
INDICATION: pneumonia EXAMINATION: CT CHEST WITHOUT CONTRAST - CT Chest W/O Contrast Injection TECHNIQUE: Helically acquired images were obtained of the chest. A radiation dose optimization technique was used for this scan. IV Contrast dosage and agent: None. COMPARISON: Chest x-ray July 24, 2022. And CT chest January 12, 2016 and PET/CT May 25, 2016. FINDINGS: LUNGS, PLEURA AND LARGE AIRWAYS: Multifocal bilateral groundglass opacities, right greater than left. Spiculated pleural reaction along the major fissure on the right. No pneumothorax. THYROID: No thyroid lesions. HEART AND PERICARDIUM: Calcific coronary artery disease. Pacer wires right heart. Transvenous pacer left chest wall. A MediPort catheter right chest terminating in the superior vena cava No pericardial effusion. CORONARY ARTERIES: Coronary artery calcification VESSELS: Thoracic aorta is not dilated. MEDIASTINUM AND MANDY: No mediastinal or hilar adenopathy. Esophagus is unremarkable. Small hiatal hernia. UPPER ABDOMEN: Heterogeneous 32 mm mass left adrenal gland. This demonstrates interval enlargement. BONES: No suspicious lytic or blastic abnormality. CT/Chest without Contrast IMPRESSION: Moderate right greater than left groundglass opacities. Findings are indeterminate for covid19. Pleural-parenchymal spiculated lesion along the major fissure on the right probably representing interval enlargement of previously noted small spiculated lesion and suspicious for neoplasm. Coronary artery disease. Heterogeneous left adrenal mass demonstrated interval enlargement and suspicious for metastatic disease. Electronically Signed: Fermin Thomas MD at 16:31 EST ,
[2022-07-24] MEDS: 0.9% Saline Lock 10 ML Syringe IV (16:32)
[2022-07-24] MEDS: Potassium Chloride Oral Tablet 20 MEQ PO (16:34)
--- NOTE | 2022-07-24 17:08 | PCM.HP.STD ---
HPI - General General Date of Admission: 07/24/22 Date of Service: 07/24/22 Chief Complaint: Shortness of breath HPI Narrative GREG HAMPTON, is a 77 M who presents to the emergency room at [facility] for evaluation of complaints of shortness of breath over the past 2 to 3 days. History was obtained to the patient and the patient's , states that the patient's been having some episodes of chills over the last 2 to 3 days also, she also states that the patient has had an intermittent temperature over the last 2 to 3 days-as high as 102 degrees. Patient denies coughing up any thick or purulent appearing sputum. Patient's last chemotherapy for his metastatic non-small cell lung cancer was July 15, I talked with his oncologist by phone today and his oncologist stated that his blood count at this time would be at its terri. He does not receive Neulasta injections after his chemo, he is on Keytruda and Alimta Work-up in the emergency room included a CBC which showed white blood cell count of 1.4, hemoglobin was 8.5, platelet count was 45,000, patient's absolute neutrophil count was 600. CMP was remarkable for bilirubin of 1.7, AST was 43, glucose was 137, beta natruretic peptide was elevated at 328, and lactic acid was 1.2. Patient required supplemental oxygen at 2 L via nasal cannula to maintain his pulse ox above 90%. Patient had a chest x-ray performed which showed diffuse infiltrates over the right lung field, this examiner looked at the actual images and did not feel that it was indicative of CHF. Patient had a COVID-19 PCR performed which was negative, patient's respiratory panel is pending at the time of this dictation, patient's nasal MRSA PCR is also pending at the time of this dictation. I had a discussion with the patient concerning his CODE STATUS and he confirmed that he was a full code, I also talked with his oncologist who stated that he would recommend obtaining a CT of the chest and that he would examine this CT himself and compare to the patient's last CT to see if there was an obvious change. His oncologist told me that it is possible the Keytruda can cause infiltrates in the lungs, he has been on Keytruda for approximately 8 weeks. Patient was admitted to MedSurg telemetry, he has a history of chronic A. fib and at times in the emergency room, his heart rate was elevated. Patient will be admitted for community-acquired pneumonia, he received cefepime in the emergency room along with vancomycin, at this time I will hold any further vancomycin administration until his nasal MRSA swab results, I have talked with pulmonary medicine about his care and they will see him in consultation. 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 Marcelo. Patient is on rate limiting medication for his chronic A. fib and he is on chronic anticoagulation (Eliquis). 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 Prostate cancer Sick sinus syndrome Syncope and collapse Tachycardia Transitional cell carcinoma of bladder Home Medications epinephrine 0.3 mg/0.3 mL injection, auto-injector 0.3 mg (0.3 mL) IM Q10-15M #2 ea 05/30/19 [Rx Last Taken Unknown] omeprazole 20 mg capsule,delayed release 20 mg PO DAILY GERD #90 caps 08/07/21 [Rx Last Taken 07/22/22] metoprolol succinate 50 mg tablet,extended release 24 hr 50 mg PO BID #180 tabs 11/20/21 [Rx Last Taken 07/24/22] vit C,E,zinc,copper-mixjt4d 250 mg-lutein 5 mg-zeaxanthin 1 mg capsule (Ocuvite Adult 50 Plus) 1 cap PO DAILY 12/11/21 [History Last Taken 07/24/22] apixaban 5 mg tablet (Eliquis) 5 mg PO BID #60 tabs 04/10/22 [Rx Last Taken 07/24/22] potassium chloride 20 mEq tablet,extended release(part/cryst) (Klor-Con M) 20 meq PO BID 07/16/22 [History Last Taken 07/24/22] acetaminophen 500 mg tablet 500 mg PO Q6H PRN Pain 07/24/22 [History Last Taken 07/23/22] albuterol sulfate 90 mcg/actuation aerosol inhaler 1 inh inhalation Q6H PRN BREATHING 07/24/22 [History Last Taken 07/21/22] cholecalciferol (vitamin D3) 25 mcg (1,000 unit) tablet 25 mcg PO DAILY SUPPLEMENT 07/24/22 [History Last Taken 07/23/22] diltiazem HCl 180 mg capsule,extended release 24 hr 180 mg PO BID 07/24/22 [History Last Taken 07/24/22] folic acid 1 mg tablet 1 mg PO DAILY SUPPLEMENT 07/24/22 [History Last Taken 07/23/22] salmeterol 50 mcg/dose blister powder for inhalation (Serevent Diskus) 1 inh inhalation BID BREATHING 07/24/22 [History Last Taken 07/23/22] zinc sulfate 50 mg zinc (220 mg) tablet 50 mg PO DAILY SUPPLEMENT 07/24/22 [History Last Taken 07/23/22] Allergy/AdvReac Type Severity Reaction Status Date / Time Iodinated Contrast Media Allergy Intermediate facial Verified 07/24/22 10:50 swelling amoxicillin [Amoxicillin] Allergy Rash Verified 07/24/22 10:50 banana Allergy Swelling Verified 07/24/22 10:50 rivaroxaban [From Xarelto] Allergy Other Verified 07/24/22 10:50 sulfamethoxazole Allergy Hives Verified 07/24/22 10:50 [From Bactrim] trimethoprim [From Bactrim] Allergy Hives Verified 07/24/22 10:50 Family History Father CVA (cerebral vascular accident) Mother Breast cancer Brother CAD (coronary artery disease) Brother CVA (cerebral vascular accident) Surgical History H/O nephrostomy History of back surgery History of knee replacement Hx of hernia repair Presence of cardiac pacemaker Social History Smoking Status: Never smoker alcohol intake: never substance use type: does not use what type of physical activity do you participate in: walking ROS Constitutional Constitutional: Reports chills, fatigue and fever(s); Denies anorexia, change in weight, night sweats or weakness Eyes Eyes: Denies blurry vision, change in eye color, change in vision, discharge from eye(s) or eye pain Cardiovascular Cardiovascular: Reports dyspnea on exertion and edema; Denies chest pain, claudication or palpitations Respiratory/Chest Respiratory/Chest: Reports shortness of breath at rest and shortness of breath with exertion; Denies cough or hemoptysis Gastrointestinal Gastrointestinal: Denies abdominal pain, coffee ground emesis, constipation, diarrhea, dyspepsia, hematemesis, hematochezia, melena, nausea or vomiting Genitourinary Genitourinary: Denies dysuria, hematuria, urinary frequency, urinary hesitancy, urinary incontinence or urinary urgency Musculoskeletal Musculoskeletal: Denies back pain, joint pain, joint stiffness, joint swelling, myalgias or neck pain Neurologic Neurologic: Denies abnormal gait, abnormal speech, dizziness, focal weakness, headache(s), loss of vision, numbness, other visual disturbances, paresthesias, syncope or tingling Psychiatric Psychiatric: Denies anxiety, cognitive impairment, depression, irritability, mood swings or suicidal ideation Endocrine Endocrinology: Denies change in body appearance, cold intolerance, excessive sweating, heat intolerance, polydipsia or polyuria Hematologic/Lymphatic Hematologic/Lymphatic: Denies none, anemia, easy bleeding, easy bruising or lymphadenopathy Allergic/Immunologic Allergic/Immunologic: Denies rhinitis, urticaria, eczemia or asthma Vital Signs Vital Signs Vital Signs: 07/24/22 10:51 07/24/22 11:19 07/24/22 11:22 Temperature 97.1 F L Temperature Source Temporal Pulse Rate 137 H 104 H Respiratory Rate 32 H Respiratory Effort Short of Breath Respiratory Depth Respiratory Pattern Blood Pressure 126/90 H Blood Pressure Mean 102 Blood Pressure Source Blood Pressure Position Blood Pressure Location Pulse Ox 96 Oxygen Delivery Method Room Air Oxygen Flow Rate (L/min) 07/24/22 12:00 07/24/22 11:55 07/24/22 12:51 Temperature 98.9 F Temperature Source Temporal Pulse Rate 92 Respiratory Rate 24 H 20 H Respiratory Effort Respiratory Depth Respiratory Pattern Blood Pressure 120/78 Blood Pressure Mean 92 Blood Pressure Source Blood Pressure Position Blood Pressure Location Pulse Ox 95 96 98 Oxygen Delivery Method Nasal Cannula Nasal Cannula Nasal Cannula Oxygen Flow Rate (L/min) 2 2 2 07/24/22 12:51 07/24/22 13:00 07/24/22 14:00 Temperature 98.9 F 98.9 F 98.6 F Temperature Source Temporal Temporal Temporal Pulse Rate 96 95 88 Respiratory Rate 22 H 18 20 H Respiratory Effort Respiratory Depth Respiratory Pattern Blood Pressure 125/78 H 126/78 H 124/78 H Blood Pressure Mean 93 94 93 Blood Pressure Source Blood Pressure Position Blood Pressure Location Pulse Ox 98 96 94 Oxygen Delivery Method Nasal Cannula Nasal Cannula Nasal Cannula Oxygen Flow Rate (L/min) 2 2 07/24/22 15:20 07/24/22 15:24 Temperature 97.8 F Temperature Source Oral Pulse Rate 99 Respiratory Rate 18 Respiratory Effort Normal Non-Labored Respiratory Depth Normal Respiratory Pattern Normal Blood Pressure 128/74 H Blood Pressure Mean 92 Blood Pressure Source Monitor Blood Pressure Position Semi-Fowlers Blood Pressure Location Right Arm Pulse Ox 95 Oxygen Delivery Method Nasal Cannula Nasal Cannula Oxygen Flow Rate (L/min) 4 3 Weight Weight: 89.358 kg Body Mass Index (BMI) 30.8 Physical Exam Const alert, oriented x3, no apparent distress and average body habitus General Appearance: cooperative, well kempt and well developed Orientation / Consciousness: awake, oriented to person, oriented to place and oriented to time HEENT normocephalic, head/scalp atraumatic, hearing grossly normal bilaterally and moist oral mucous membranes Eyes PERRL, EOMs intact bilaterally and conjunctivae normal Neck supple, no JVD, thyroid normal and no carotid bruits General: trachea midline Resp no retractions Resp Narrative: Patient becomes dyspneic on minimal exertion, lung evans are clear bilaterally however, no rhonchi rales or wheezes are noted. Use of accessory muscles were noted on minimal exertion. Auscultation: Negative for rales, rhonchi or wheezes Cardio S1 normal heart sound, S2 normal heart sound, no murmurs, no rub and no gallops Cardio Narrative: Heart rate and rhythm is irregular GI normal to inspection, nondistended, normoactive bowel sounds, soft to palpation, non-tender and non-distended GI Narrative: Ileostomy is present Extremity Extremity Narrative: Mild lower leg edema is noted bilaterally Skin no rashes or lesions noted General Skin Exam: no breakdown Neuro oriented x3, CN's II-XII intact bilaterally, no focal motor deficits and no sensory deficits noted Sensorium / Orientation: awake, alert, oriented to person, oriented to place and oriented to time Speech: speech normal Psych affect normal Results Lab / Micro Data Result Diagrams: 07/24/22 11:15 07/24/22 11:15 Labs: Laboratory Results - last 24 hr 07/24/22 11:15: WBC 1.4 L*, RBC 2.68 L, Hgb 8.5 L, Hct 25.6 L, MCV 95.5 H, MCH 31.7, MCHC 33.2, RDW Std Deviation 54.7 H, RDW Coeff of Foster 15.8 H, Plt Count 45 L*, MPV 10.7, Immature Gran % (Auto) 1.500 H, Neut % (Auto) 44.5 L, Lymph % (Auto) 22.2, Sharp % (Auto) 31.1 H, Eos % (Auto) 0.7, Baso % (Auto) 0.0, Absolute Neuts (auto) 0.6 L, Absolute Lymphs (auto) 0.30 L, Nucleated RBC % 0, Differential Comment SCANNED, Diff Path Review November foll 07/24/22 11:15: Sodium 134 L, Potassium 3.7, Chloride 104, Carbon Dioxide 21.0, Anion Gap 9, BUN 16, Creatinine 1.04, Estim Creat Clear Calc 54.73, Est GFR (MDRD) Af Amer 89, Est GFR (MDRD) Non-Af 73, BUN/Creatinine Ratio 15.4, Glucose 137 H, Calcium 8.5, Total Bilirubin 1.70 H, AST 43 H, ALT 36, Alkaline Phosphatase 104, Troponin I High Sens 11, Total Protein 6.3 L, Albumin 2.4 L, Globulin 3.9, Albumin/Globulin Ratio 0.6 L 07/24/22 11:15: B-Natriuretic Peptide 328.4 H 07/24/22 13:05: Lactic Acid 1.2 07/24/22 : COVID-19 (DOC) Not Detected Micro: Microbiology 07/24/22 Unknown Nasal Secretion SARS-CoV-2 Antigen (Rapid) - Final Radiology Impression Chest X-Ray 07/24/22 11:30 IMPRESSION: Right lung pneumonia. Electronically Signed: Octavio Verde MD at 12:01 EST , Chest CT 07/24/22 15:14 IMPRESSION: Moderate right greater than left groundglass opacities. Findings are indeterminate for covid19. Pleural-parenchymal spiculated lesion along the major fissure on the right probably representing interval enlargement of previously noted small spiculated lesion and suspicious for neoplasm. Coronary artery disease. Heterogeneous left adrenal mass demonstrated interval enlargement and suspicious for metastatic disease. Electronically Signed: Fermin Thomas MD at 16:31 EST Reading Location ID and State: [address] [place] [address] , Service support , Assessment & Plan Assessment/Plan (1) Pneumonia: PLAN: Plan 1. Community-acquired pneumonia right lung-patient was admitted to [facility] telemetry, will be maintained on cefepime 2 g every 12 hours, patient's respiratory panel is pending at the time of this dictation. He will be seen in consultation by pulmonary medicine. Patient will have a noncontrast chest CT performed today. #2 hypoxia secondary to #1-patient's pulse ox will be monitored, he is currently on nasal cannula oxygen #3 non-small cell lung cancer with metastases to the bone-patient receives outpatient chemotherapy and immunotherapy, his last treatment was July 15, 2022. Complicates care, recovery, management, and prognosis. 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
[2022-07-24 18:08] LABS: Probe Check PASS
[2022-07-24 18:12] LABS: M R Staph aureus DNA By PCR POSITIVE (Negative)
[2022-07-24] MEDS: Furosemide 40 MG/4 ML Vial IV (18:41)
[2022-07-24] MEDS: Ipratropium/Albuterol Sulfate 3 ML AMPUL.NEB INHALATION (19:12)
--- NOTE | 2022-07-24 19:15 | PCM.RX.CS ---
Consult Pharmacy has been consulted to manage selected antiobiotic: Vancomycin Type of Consult: New start Prior Doses of Antibiotics Received/Current Regimen: Medications Discontinued Medications Vancomycin HCl 1,250 mg/ (Sodium Chloride) 275 mls @ 167 mls/hr IV X1 ONE Stop: 07/24/22 13:44 Last Admin: 07/24/22 17:05 Dose: Infused Labs: Sodium 134 mmol/L (136-145) L 07/24/22 11:15 Potassium 3.7 mmol/L (3.5-5.1) 07/24/22 11:15 Chloride 104 mmol/L (98-107) 07/24/22 11:15 Carbon Dioxide 21.0 mmol/L (21.0-32.0) 07/24/22 11:15 Anion Gap 9 (5-15) 07/24/22 11:15 BUN 16 mg/dL (7-18) 07/24/22 11:15 Creatinine 1.04 mg/dL (0.70-1.30) 07/24/22 11:15 Est GFR (MDRD) Af Amer 89 mL/min (>60) 07/24/22 11:15 Est GFR (MDRD) Non-Af 73 mL/min (>60) 07/24/22 11:15 BUN/Creatinine Ratio 15.4 RATIO (10-20) 07/24/22 11:15 Glucose 137 mg/dL (74-106) H 07/24/22 11:15 Microbiology: Microbiology 07/24/22 16:45 Urine Catheter - Catheter Legionella Antigen - Final 07/24/22 16:45 Urine Catheter - Catheter Streptococcus pneumoniae Antigen (M - Final 07/24/22 12:52 Mucosa - Nasopharyngeal Respiratory Panel (PCR) - Final 07/24/22 Unknown Nasal Secretion SARS-CoV-2 Antigen (Rapid) - Final Weight used for dosin kg Estimated Creatinine Clearance: 55 Goal Trough: 15-20 mcg/mL Pharmacy Plan for Drug Dosinmg given, 750mg IV q12h with trough prior to 4th dose per policy. Pharmacy Service will continue to monitor and adjust dosing as required. Follow-Up Labs: Trough Vancomycin - 07/26 @ 0137
[2022-07-24] MEDS: Gabapentin 300 MG Capsule PO (22:23)
[2022-07-24] MEDS: dilTIAZem CD 180 MG Capsule PO (22:23)
[2022-07-24] MEDS: Metoprolol(XL)Succ 50 MG Tablet 75 MG PO (22:23)
[2022-07-24] MEDS: APIXABAN 5 MG TABLET PO (22:24)
[2022-07-25] VITALS (24 sets, daily range): BP systolic 103–133; BP diastolic 60–77; PULSE 71–120; RESP 15–22; TEMP 36.4–37.1; O2SAT 86–97
[2022-07-25 05:03] LABS: Absolute Lymphocyte Count 0.16 X10^3/uL (0.83-4.51); Absolute Neutrophil Count 0.6 X10^3/uL (2.0-7.7); Hematocrit 24.5 % (40-54); Hemoglobin 7.8 g/dL (13.0-16.5); Lymphocyte # 0.16 X10^3/ul (0.83-4.51); Mean Corp Hgb Conc 31.8 g/dL (32-36); Mean Corpuscular Hgb 30.4 pg (27.0-32.0); Mean Corpuscular Volume 95.3 fL (80-94); Mean Platelet Vol. 11.7 fl (6.2-12.0); Monocyte% 21.3 % (0-10); NRBC Flagged by Analyzer 4.3 % (0-5); Neutrophil # 0.57 X10^3/uL (2.7-7.7); Neutrophil % 60.6 % (47-70); POSITIVE COUNT YES; POSITIVE DIFFERENTIAL YES; RBC Distribution Width CV 15.8 % (11.6-14.6); RBC Distribution Width SD 55.5 fl (35.1-43.9); Red Blood Count 2.57 M/mm3 (4.6-6.2)
[2022-07-25 05:08] LABS: Differential Indicated SCAN CRITERIA MET
[2022-07-25 05:09] LABS: Platelet Count 30 K/mm3 (150-450); White Blood Count 0.9 K/mm3 (4.4-11.0)
[2022-07-25] MEDS: 0.9% Saline Lock 10 ML Syringe IV ×2 (05:09→14:22)
[2022-07-25 05:29] LABS: Anion Gap 10 (5-15); BUN 19 mg/dL (7-18); BUN/Creat Ratio 16.8 RATIO (10-20); Chloride 101 mmol/L (98-107); Creatinine, Serum 1.13 mg/dL (0.70-1.30); EST Glomerular Filtration Rate 67 mL/min (>60); Est Glom Filt Rate - Afr Amer 81 mL/min (>60); Estimated Creatinine Clearance 50.37 ml/min; Glucose 168 mg/dL (74-106); Potassium 3.4 mmol/L (3.5-5.1); Sodium Level 134 mmol/L (136-145)
[2022-07-25 05:34] LABS: Differential Comment SCANNED
--- NOTE | 2022-07-25 06:37 | NURSING ---
DR DC MADE AWARE OF PTS AM CRITICAL LABS WBC 0.9, PLTS 30
--- NOTE | 2022-07-25 06:51 | CON.PCM.CC_ITS ---
Assessment & Plan Assessment/Plan (1) Pancytopenia due to antineoplastic chemotherapy: (2) Lung cancer metastatic to bone: (3) Hypoxia: PLAN: Plan RECOMMENDATIONS: 1. Supplemental oxygen to maintain saturations at or above 90%. 2. Continue empiric antimicrobials. 3. Continue corticosteroids as ordered. 4. Continue Granix until neutropenia resolves. 5. Continue baseline Eliquis. 6. Encourage incentive spirometer use and mobilize patient as tolerated. IMPRESSIONS: 1. 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 The patient has already been evaluated by oncology and started on corticosteroids, which I agree with continuing. In light of his underlying pancytopenia, it is certainly reasonable to continue empiric broad-spectrum antimicrobials, to cover for a superimposed bacterial pneumonia as well. The patient is stable from a respiratory perspective on nasal cannula oxygen, which can be continued to m aintain saturations at or above 90%. 2. History of metastatic lung cancer with pancytopenia Continue outpatient follow-up with oncology. Start Granix with plans to continu e until neutropenia resolves. 3. Chronic atrial fibrillation/history of bladder CA/history of prostate CA/GERD Complicates care, management, recovery and prognosis. Continue home medications as indicated. This note was generated with [employer] dictation software. It may contain incorrect words, spelling, and punctuation that were not noted in checking the note before signing. HPI Consult Data Date of Consult: 07/25/22 HPI Narrative Reason for Consultation: Pneumonia HPI Narrative: The patient is a 77-year-old male, with a history as outlined below, who presented to the emergency department on July 24 with progressive shortness of breath. The patient has known history of atrial fibrillation and sick sinus rhythm status post permanent pacemaker placement. The patient also has a histor y significant for metastatic non-small cell lung cancer, currently being treated with Keytruda and Alimta. The patient's reported that she has been noticing that his oxygen saturations have been dropping at home this week. However, the patient is apparently stubborn and did not seek any medical attention until his follow-up with oncology on . On presentation to the emergency department, the patient was documented to have a temperature of 96.1 ?F. He was otherwise hemodynamically stable but notably tachycardic and tachypneic. Initial laboratory evaluation revealed evidence of pancytopenia. Chemistry profile was unrevealing. Lactate was noted to be 1.2. Total bili was elevated at 1.7. BNP was elevated at 328. COVID PCR was negative. CT chest demonstrated bilateral groundglass opacities, more significant throughout the right hemithorax, along with a spiculated lesion along the right major fissure. The patient was subsequently placed on empiric broad-spectrum antimicrobials and IV steroids. He was admitted to the medical surgical floor for further management. PENDING SALE TO [facility] Medical History (Updated 07/25/22 @ 08:[address] Grayson Benton MD) Acute cystitis Acute on chronic anemia Chest pain Chronic atrial fibrillation Chronic atrial fibrillation Chronic indwelling Figueroa catheter Encounter for long-term current use of high risk medication Essential hypertension Gastroesophageal reflux disease H/O valvular heart disease Hernia History of right ureteral stent Iron deficiency anemia Lung cancer metastatic to bone Osteoarthritis Other fci (current) drug therapy Prostate cancer Sick sinus syndrome Syncope and collapse Tachycardia Transitional cell carcinoma of bladder Home Medications epinephrine 0.3 mg/0.3 mL injection, auto-injector 0.3 mg (0.3 mL) IM Q10-15M #2 ea 05/30/19 [Rx Last Taken Unknown] omeprazole 20 mg capsule,delayed release 20 mg PO DAILY GERD #90 caps 08/07/21 [Rx Last Taken 07/22/22] metoprolol succinate 50 mg tablet,extended release 24 hr 50 mg PO BID #180 tabs 11/20/21 [Rx Last Taken 07/24/22] vit C,E,zinc,copper-ipzqt0r 250 mg-lutein 5 mg-zeaxanthin 1 mg capsule (Ocuvite Adult 50 Plus) 1 cap PO DAILY 12/11/21 [History Last Taken 07/24/22] apixaban 5 mg tablet (Eliquis) 5 mg PO BID #60 tabs 04/10/22 [Rx Last Taken 07/24/22] potassium chloride 20 mEq tablet,extended release(part/cryst) (Klor-Con M) 20 meq PO BID 07/16/22 [History Last Taken 07/24/22] acetaminophen 500 mg tablet 500 mg PO Q6H PRN Pain 07/24/22 [History Last Taken 07/23/22] albuterol sulfate 90 mcg/actuation aerosol inhaler 1 inh inhalation Q6H PRN BREATHING 07/24/22 [History Last Taken 07/21/22] cholecalciferol (vitamin D3) 25 mcg (1,000 unit) tablet 25 mcg PO DAILY SUPPLEMENT 07/24/22 [History Last Taken 07/23/22] diltiazem HCl 180 mg capsule,extended release 24 hr 180 mg PO BID 07/24/22 [History Last Taken 07/24/22] folic acid 1 mg tablet 1 mg PO DAILY SUPPLEMENT 07/24/22 [History Last Taken 07/23/22] salmeterol 50 mcg/dose blister powder for inhalation (Serevent Diskus) 1 inh inhalation BID BREATHING 07/24/22 [History Last Taken 07/23/22] zinc sulfate 50 mg zinc (220 mg) tablet 50 mg PO DAILY SUPPLEMENT 07/24/22 [History Last Taken 07/23/22] Allergy/AdvReac Type Severity Reaction Status Date / Time Iodinated Contrast Media Allergy Intermediate facial Verified 07/24/22 10:50 swelling amoxicillin [Amoxicillin] Allergy Rash Verified 07/24/22 10:50 banana Allergy Swelling Verified 07/24/22 10:50 rivaroxaban [From Xarelto] Allergy Other Verified 07/24/22 10:50 sulfamethoxazole Allergy Hives Verified 07/24/22 10:50 [From Bactrim] trimethoprim [From Bactrim] Allergy Hives Verified 07/24/22 10:50 Family History Father CVA (cerebral vascular accident) Mother Breast cancer Brother CAD (coronary artery disease) Brother CVA (cerebral vascular accident) Surgical History H/O nephrostomy History of back surgery History of knee replacement Hx of hernia repair Presence of cardiac pacemaker Social History Smoking Status: Never smoker alcohol intake: never substance use type: does not use what type of physical activity do you participate in: walking ROS ROS Narrative 10 systems were reviewed with pertinent positives as noted in the HPI above. Physical Exam Const alert and no apparent distress Constitutional Narrative: is present at the bedside. General Appearance: cooperative HEENT normocephalic, head/scalp atraumatic and moist oral mucous membranes Eyes PERRL, EOMs intact bilaterally and conjunctivae normal Neck supple General: trachea midline Chest Chest Narrative: Stable chest wall port. Resp normal respiratory effort Resp Narrative: Rales present, right greater than left Effort and Inspection: able to speak in complete sentences; Negative for labored Cardio S1 normal heart sound and S2 normal heart sound Rhythm: abnormal rhythm GI normal to inspection, nondistended, normoactive bowel sounds Extremity no clubbing, cyanosis or edema Skin no rashes or lesions noted Neuro oriented x3, CN's II-XII intact bilaterally, moves all extremities and no focal motor deficits Psych cooperative and affect normal Lab / Micro Data Result Diagrams: 07/25/22 04:51 07/25/22 04:51 Labs: Laboratory Results - last 24 hr 07/24/22 11:15: WBC 1.4 L*, RBC 2.68 L, Hgb 8.5 L, Hct 25.6 L, MCV 95.5 H, MCH 31.7, MCHC 33.2, RDW Std Deviation 54.7 H, RDW Coeff of Foster 15.8 H, Plt Count 45 L*, MPV 10.7, Immature Gran % (Auto) 1.500 H, Neut % (Auto) 44.5 L, Lymph % (Auto) 22.2, [place] % (Auto) 31.1 H, Eos % (Auto) 0.7, Baso % (Auto) 0.0, Absolute Neuts (auto) 0.6 L, Absolute Lymphs (auto) 0.30 L, Nucleated RBC % 0, Differential Comment SCANNED, Diff Path Review November07/24/22 11:15: Sodium 134 L, Potassium 3.7, Chloride 104, Carbon Dioxide 21.0, Anion Gap 9, BUN 16, Creatinine 1.04, Estim Creat Clear Calc 54.73, Est GFR (MDRD) Af Amer 89, Est GFR (MDRD) Non-Af 73, BUN/Creatinine Ratio 15.4, Glucose 137 H, Calcium 8.5, Total Bilirubin 1.70 H, AST 43 H, ALT 36, Alkaline Phosphatase 104, Troponin I High Sens 11, Total Protein 6.3 L, Albumin 2.4 L, Globulin 3.9, Albumin/Globulin Ratio 0.6 L 07/24/22 11:15: B-Natriuretic Peptide 328.4 H 07/24/22 13:05: Lactic Acid 1.2 07/24/22 : COVID-19 (DOC) Not Detected 07/25/22 04:51: WBC 0.9 L*, RBC 2.57 L, Hgb 7.8 L, Hct 24.5 L, MCV 95.3 H, MCH 30.4, MCHC 31.8 L, RDW Std Deviation 55.5 H, RDW Coeff of Foster 15.8 H, Plt Count 30 L*, MPV 11.7, Immature Gran % (Auto) 1.100 H, Neut % (Auto) 60.6, Lymph % (Auto) 17.0 L, [place] % (Auto) 21.3 H, Eos % (Auto) 0.0, Baso % (Auto) 0.0, Absolute Neuts (auto) 0.6 L, Absolute Lymphs (auto) 0.16 L, Nucleated RBC % 4.3, Differential Comment SCANNED, Diff Path Review November07/25/22 04:51: Sodium 134 L, Potassium 3.4 L, Chloride 101, Carbon Dioxide 23.0, Anion Gap 10, BUN 19 H, Creatinine 1.13, Estim Creat Clear Calc 50.37, Est GFR (MDRD) Af Amer 81, Est GFR (MDRD) Non-Af 67, BUN/Creatinine Ratio 16.8, Glucose 168 H, Calcium 8.0 L Micro: Microbiology 07/24/22 16:45 Urine Catheter - Catheter Legionella Antigen - Final 07/24/22 16:45 Urine Catheter - Catheter Streptococcus pneumoniae Antigen (M - Final 07/24/22 12:52 Mucosa - Nasopharyngeal Respiratory Panel (PCR) - Final 07/24/22 Unknown Nasal Secretion SARS-CoV-2 Antigen (Rapid) - Final Radiology Impression Chest X-Ray 07/24/22 11:30 IMPRESSION: Right lung pneumonia. Electronically Signed: Octavio Verde MD at 12:01 EST , Chest CT 07/24/22 15:14 IMPRESSION: Moderate right greater than left groundglass opacities. Findings are indeterminate for covid19. Pleural-parenchymal spiculated lesion along the major fissure on the right probably representing interval enlargement of previously noted small spiculated lesion and suspicious for neoplasm. Coronary artery disease. Heterogeneous left adrenal mass demonstrated interval enlargement and suspicious for metastatic disease. Electronically Signed: Fermin Thomas MD at 16:31 EST Reading Location ID and State: [address] [place] [address] , Service support , Charges/Coding Visit Charges Inpatient E&M: 39482 Init Hosp L3
[2022-07-25] MEDS: Ipratropium/Albuterol Sulfate 3 ML AMPUL.NEB INHALATION ×3 (07:17→20:04)
--- NOTE | 2022-07-25 07:45 | PCM.CONS.B ---
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 The patient is a 77-year-old male, with a history metastatic bladder cancer, s/p radical cystectomy was on atezalizumab when he presented 2 years ago with mThe lung nodules were never biopsy and he started on SBRT. Starting this year he has multiple neurological with bone and adrenal metastasis. Biopsy of the bone lesion was consistent with non-small cell lung cancer adenocarcinoma. He started chemotherapy with carboplatin and pemetrexed in the summer and had a partial response. He started maintenance pembrolizumab with pemetrexed 2 months ago. His last treatment was 10 days ago in our office. He had progressive shortness of breath over the last 2 weeks, and in the last 2 days has symptom orthopnea and dyspnea with exertion. His oxygen saturation decreased to 90% on room air. Although he has no cough, fever or chills. He also had diarrhea for the last couple days. He was seen in my office and then presented to the emergency department on July 24 with Acute respiratory failure.? The patient has known history of atrial fibrillation and sick sinus rhythm status post permanent pacemaker placement.? On presentation to the emergency department, the patient was documented to have a temperature of 96.1 ?F.? He was otherwise hemodynamically stable but notably tachycardic and tachypneic.? Initial laboratory evaluation revealed evidence of pancytopenia.? Chemistry profile was unrevealing.? Lactate was noted to be 1.2.? Total bili was elevated at 1.7.? BNP was elevated at 328.? COVID PCR was negative.? CT chest demonstrated bilateral groundglass opacities, more significant throughout the right hemithorax, along with a spiculated lesion along the right major fissure. [facility], [facility] Medical History? Acute cystitis Acute on chronic anemia Chest pain Chronic atrial fibrillation Chronic atrial fibrillation Chronic indwelling Figueroa catheter Encounter for long-term current use of high risk medication Essential hypertension Gastroesophageal reflux disease H/O valvular heart disease Hernia History of right ureteral stent Iron deficiency anemia Osteoarthritis Other intermediate manager (current) drug therapy Prostate cancer Sick sinus syndrome Syncope and collapse Tachycardia Transitional cell carcinoma of bladder Home Medications epinephrine 0.3 mg/0.3 mL injection, auto-injector 0.3 mg (0.3 mL) IM Q10-15M #2 ea 05/30/19 [Rx Last Taken Unknown] omeprazole 20 mg capsule,delayed release 20 mg PO DAILY GERD #90 caps 08/07/21 [Rx Last Taken 07/22/22] metoprolol succinate 50 mg tablet,extended release 24 hr 50 mg PO BID #180 tabs 11/20/21 [Rx Last Taken 07/24/22] vit C,E,zinc,copper-csnin7o 250 mg-lutein 5 mg-zeaxanthin 1 mg capsule (Ocuvite Adult 50 Plus) 1 cap PO DAILY 12/11/21 [History Last Taken 07/24/22] apixaban 5 mg tablet (Eliquis) 5 mg PO BID #60 tabs 04/10/22 [Rx Last Taken 07/24/22] potassium chloride 20 mEq tablet,extended release(part/cryst) (Klor-Con M) 20 meq PO BID 07/16/22 [History Last Taken 07/24/22] acetaminophen 500 mg tablet 500 mg PO Q6H PRN Pain 07/24/22 [History Last Taken 07/23/22] albuterol sulfate 90 mcg/actuation aerosol inhaler 1 inh inhalation Q6H PRN BREATHING 07/24/22 [History Last Taken 07/21/22] cholecalciferol (vitamin D3) 25 mcg (1,000 unit) tablet 25 mcg PO DAILY SUPPLEMENT 07/24/22 [History Last Taken 07/23/22] diltiazem HCl 180 mg capsule,extended release 24 hr 180 mg PO BID 07/24/22 [History Last Taken 07/24/22] folic acid 1 mg tablet 1 mg PO DAILY SUPPLEMENT 07/24/22 [History Last Taken 07/23/22] salmeterol 50 mcg/dose blister powder for inhalation (Serevent Diskus) 1 inh inhalation BID BREATHING 07/24/22 [History Last Taken 07/23/22] zinc sulfate 50 mg zinc (220 mg) tablet 50 mg PO DAILY SUPPLEMENT 07/24/22 [History Last Taken 07/23/22] Allergy/AdvReac Type Severity Reaction Status Date / Time Iodinated Contrast Media Allergy Intermediate facial Verified 07/24/22 10:50 ? ? ? swelling ? ? amoxicillin [Amoxicillin] Allergy ? Rash Verified 07/24/22 10:50 banana Allergy ? Swelling Verified 07/24/22 10:50 rivaroxaban [From Xarelto] Allergy ? Other Verified 07/24/22 10:50 sulfamethoxazole Allergy ? Hives Verified 07/24/22 10:50 [From Bactrim] ? trimethoprim [From Bactrim] Allergy ? Hives Verified 07/24/22 10:50 Family History? Father?? CVA (cerebral vascular accident)Mother?? Breast cancerBrother?? CAD (coronary artery disease)Brother CVA (cerebral vascular accident) Surgical History? H/O nephrostomy History of back surgery History of knee replacement Hx of hernia repair Presence of cardiac pacemaker Social History? Smoking Status:? Never smoker? alcohol intake:? never? substance use type:? does not use? what type of physical activity do you participate in:? walking? EXAM Physical Exam Narrative Exam Narrative:? Physical exam General: Patient appears somewhat uncomfortable Head: Normocephalic, Atraumatic Eyes: Conjunctiva + pallor ENT: Moist mucous membranes Neck: Supple, Nontender, No lymphadenopathy Cardiovascular: Irregular tachycardia no obvious murmur Chest wall: Port site is intact without any signs of infection Respiratory: He is slightly tachypneic, he has bilateral coarse breath sounds. + dry rales both lungs. no wheezing Abdomen: Soft, Nontender, Nondistended.? Urostomy site is intact. Back: Nontender, Normal Inspection.? Negative for: CVA tenderness Extremities: Nontender, symmetric bilateral edema both upper and lower extremities. +ecchymosis Skin: Normal color, No rash Neurological: Alert, Normal Strength, Normal Sensation Psychological: Normal affect Lab / Micro Data Result Diagrams:? 07/25/22 04:51? 07/25/22 04:51? Labs:? Laboratory Results - last 24 hr 07/24/22 11:15: WBC 1.4 L*,?RBC 2.68 L,?Hgb 8.5 L,?Hct 25.6 L,?MCV 95.5 H, MCH 31.7, MCHC 33.2,?RDW Std Deviation 54.7 H,?RDW Coeff of Foster 15.8 H,?Plt Count 45 L*, MPV 10.7,?Immature Gran % (Auto) 1.500 H,?Neut % (Auto) 44.5 L, Lymph % (Auto) 22.2,?[place] % (Auto) 31.1 H, Eos % (Auto) 0.7, Baso % (Auto) 0.0,?Absolute Neuts (auto) 0.6 L,?Absolute Lymphs (auto) 0.30 L, Nucleated RBC % 0, Differential Comment SCANNED, Diff Path Review May foll 07/24/22 11:15: Sodium 134 L, Potassium 3.7, Chloride 104, Carbon Dioxide 21.0, Anion Gap 9, BUN 16, Creatinine 1.04, Estim Creat Clear Calc 54.73, Est GFR (MDRD) Af Amer 89, Est GFR (MDRD) Non-Af 73, BUN/Creatinine Ratio 15.4,Glucose 137 H, Calcium 8.5,?Total Bilirubin 1.70 H,?AST 43 H, ALT 36, Alkaline Phosphatase 104, Troponin I High Sens 11,?Total Protein 6.3 L,?Albumin 2.4 L, Globulin 3.9,?Albumin/Globulin Ratio 0.6 L 07/24/22 11:15: B-Natriuretic Peptide 328.4 H 07/24/22 13:05:?Lactic Acid 1.2 07/24/22 :?COVID-19 (DOC) Not Detected 07/25/22 04:51: WBC 0.9 L*,?RBC 2.57 L,?Hgb 7.8 L,?Hct 24.5 L,?MCV 95.3 H, MCH 30.4,?MCHC 31.8 L,?RDW Std Deviation 55.5 H,?RDW Coeff of Foster 15.8 H,?Plt Count 30 L*, MPV 11.7,?Immature Gran % (Auto) 1.100 H, Neut % (Auto) 60.6,?Lymph % (Auto) 17.0 L,?[place] % (Auto) 21.3 H, Eos % (Auto) 0.0, Baso % (Auto) 0.0,?Absolute Neuts (auto) 0.6 L,?Absolute Lymphs (auto) 0.16 L, Nucleated RBC % 4.3, Differential Comment SCANNED, Diff Path Review May foll 07/25/22 04:51: Sodium 134 L,?Potassium 3.4 L, Chloride 101, Carbon Dioxide 23.0, Anion Gap 10,?BUN 19 H, Creatinine 1.13, Estim Creat Clear Calc 50.37, Est GFR (MDRD) Af Amer 81, Est GFR (MDRD) Non-Af 67, BUN/Creatinine Ratio 16.8,?Glucose 168 H,?Calcium 8.0 L Micro:? Microbiology 07/24/22 16:45 ? Urine Catheter - Catheter ? Legionella Antigen - Final 07/24/22 16:45 ? Urine Catheter - Catheter ? Streptococcus pneumoniae Antigen (M - Final 07/24/22 12:52 ? Mucosa - Nasopharyngeal ? Respiratory Panel (PCR) - Final 07/24/22 Unknown ? Nasal Secretion ? SARS-CoV-2 Antigen (Rapid) - Final Radiology Impression Chest X-Ray? 07/24/22 11:30 IMPRESSION: ? Right lung pneumonia. ? Electronically Signed: Octavio Verde MD at 12:01 EST Reading Location ID and State: [facility] / [place] , Service support? , ? Chest CT? 07/24/22 15:14 IMPRESSION: ? Moderate right greater than left groundglass opacities. Findings are indeterminate for covid19. ? Pleural-parenchymal spiculated lesion along the major fissure on the right probably representing interval enlargement of previously noted small spiculated lesion and suspicious for neoplasm. ? Coronary artery disease. ? Heterogeneous left adrenal mass demonstrated interval enlargement and suspicious for metastatic disease. ? Electronically Signed: Fermin Thomas MD at 16:31 EST , ? Assessment & Plan Assessment/Plan (1) Lung cancer metastatic to bone: PLAN: -Had partial response ot Carboplatin/premetrexate. Plan: -resume maintenance pemetrexate when pneumonitis improved. 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 (Diffuse interstitial changes in both lungs) -possible concurrent pneumonia because of neutropenia (Consolidation in right lung is area of previous radiation therapy) Plan: -Start Solumedrol 2mg/kg/day -Continue antibiotics until neutropenia resolves and cultures are negative (3) Pancytopenia due to antineoplastic chemotherapy: PLAN: Plan: -Start Granix 480 mcg SQ daily until neutropenia resolves -monitor CBC daily and transfuse if Hgb < 7.0 gm/dL (4) Atrial fibrillation with rapid ventricular response: PLAN: - rate controlled on AC (apaxiaban) Plan: - hold apaxiban beacuse of thrombocytopenia - possible switching to LMWH until Platelet recovers PLAN: Plan - Dr. Del Rio will be covering this weekend for our service
[2022-07-25] MEDS: Metoprolol(XL)Succ 50 MG Tablet 75 MG PO ×2 (08:32→21:20)
[2022-07-25] MEDS: Pantoprazole Sodium 20 MG Tablet PO (08:32)
[2022-07-25] MEDS: Folic Acid 1 MG Tablet PO (08:34)
[2022-07-25] MEDS: dilTIAZem CD 180 MG Capsule PO ×2 (08:36→21:21)
[2022-07-25] MEDS: Potassium Chloride Oral Tablet 20 MEQ PO ×2 (08:48→16:17)
[2022-07-25] MEDS: TBO-FILGRASTIM 480 MCG/0.8 ML ML SC (10:08)
[2022-07-25] MEDS: Dicyclomine 10 MG Capsule 20 MG PO ×2 (10:41→16:17)
--- NOTE | 2022-07-25 11:15 | CASEMGMT ---
SKYLER PEARSON Assessment: Face to Face with pt for initial transition planning/care coordination assessment. SKYLER PEARSON introduced self and role at [facility], pt voices understanding and consents to assessment. Pt is A/O and answers all questions appropriately at this time. at bedside. Pt gives verbal permission for to assist with answering questions if needed. Care providers, pharmacy, and demographics verified/updated. Admitting Dx: Right Community Acquired Pneumonia. PCP: Fermin Escalona. Specialists: Serenity, Oncology; Davian, Cardiology. Preferred Pharmacy: [facility]. Insurance: Medicare Part A B; [employer] [facility]. Prescription Benefit: Yes. LW/HPOA: Pt reports having a LW/HPOA. is HPOA. LNOK: Devora Mcnally, ; Hao Mcnally, Son. Living Arrangements: Pt lives with in a two story home. The home has two steps to enter with a rail in place. Pt was I in ADLs prior to getting sick last week. Upon getting sick, pt's assisted with ADLs. Transportation: Pt drives self and denies concerns with transportation. is able to drive as well. DME/HHC/SNF: Pt has a shower chair. Pt denies needing any other DME. Pt had HHC in the past after surgery. Pt's thinks it was [facility] HHC. Pt denies any SNF stays. Pt currently is ordered oxygen but doesn't have it at home. Oxygen providers discussed. Pt is agreeable to [employer] if DC with oxygen. Pt's thinks [employer] was used in past d/t having a Cpap. Pt no longer has a Cpap machine. Pt's stated the Cpap use was discontinued d/t the impact while on chemo. Pt states no concerns with going home at time of dc.Pt plans to DC home with no needs, but is open to HHC if needed. Pt's voiced being able to assist if needed. Pt states no further concerns/needs. CM to follow. Advised pt to ask CM if any further question/concerns/needs arise, voices understanding. Pt Goal: Home. No needs. Plan: TBD.
[2022-07-25 11:32] LABS: Pathologist Review Reviewed
--- NOTE | 2022-07-25 18:17 | PN.HOSP_ITS ---
Subjective Subjective Patient was seen and examined today, I talked with his oncologist by phone today, it was recommended that his IV steroid dosage be increased, it is the opinion of the oncologist that the lung abnormality on the patient may be due to Keytruda, patient is having diarrhea which seems indicated could be due to Keytruda. Patient remains pancytopenic, his heart rate is well controlled at this time on rate control medications, I do not feel that cardiology needs to see the patient. I talked briefly with pulmonary medicine about his care. Patient was placed on Granix by oncology today. Objective Data Objective Data Vital Signs: Vital Signs Temp Pulse Resp BP Pulse Ox O2 Del Method O2 Flow Rate 97.6 F L 87 22 H 119/70 92 Room Air 3.5 07/25/22 16:24 07/25/22 17:00 07/25/22 16:24 07/25/22 16:24 07/25/22 16:24 07/25/22 16:24 07/25/22 16:24 Oxygen Flow Rate (L/min) 3.5 Oxygen Delivery Method Room Air Weight: 89.358 kg Body Mass Index (BMI) 30.8 Intake & Output: Intake and Output for Last 24 Hours 07/23/22 07/24/22 07/25/22 23:59 23:59 23:59 Intake Total 725 / 1525 1430 / 1430 Output Total 300 / 925 2575 / 2575 Balance 425 / 600 -1145 / -1145 Lab / Micro Data Result Diagrams: 07/25/22 04:51 07/25/22 04:51 Labs: Laboratory Results - last 24 hr 07/24/22 11:15: Diff Path Review Reviewed 07/24/22 14:45: MRSA (PCR) POSITIVE H 07/25/22 04:51: WBC 0.9 L*, RBC 2.57 L, Hgb 7.8 L, Hct 24.5 L, MCV 95.3 H, MCH 30.4, MCHC 31.8 L, RDW Std Deviation 55.5 H, RDW Coeff of Foster 15.8 H, Plt Count 30 L*, MPV 11.7, Immature Gran % (Auto) 1.100 H, Neut % (Auto) 60.6, Lymph % (Auto) 17.0 L, [place] % (Auto) 21.3 H, Eos % (Auto) 0.0, Baso % (Auto) 0.0, Absolute Neuts (auto) 0.6 L, Absolute Lymphs (auto) 0.16 L, Nucleated RBC % 4.3, Differential Comment SCANNED, Diff Path Review November07/25/22 04:51: Sodium 134 L, Potassium 3.4 L, Chloride 101, Carbon Dioxide 23.0, Anion Gap 10, BUN 19 H, Creatinine 1.13, Estim Creat Clear Calc 50.37, Est GFR (MDRD) Af Amer 81, Est GFR (MDRD) Non-Af 67, BUN/Creatinine Ratio 16.8, Glucose 168 H, Calcium 8.0 L Micro: Microbiology 07/24/22 17:00 Sputum, Expectorated/Coughed Gram Stain - Final 07/24/22 16:45 Urine Catheter - Catheter Legionella Antigen - Final 07/24/22 16:45 Urine Catheter - Catheter Streptococcus pneumoniae Antigen (M - Final 07/24/22 12:52 Mucosa - Nasopharyngeal Respiratory Panel (PCR) - Final 07/24/22 Unknown Nasal Secretion SARS-CoV-2 Antigen (Rapid) - Final Physical Exam Narrative alert, oriented x3, no apparent distress and average body habitus General Appearance: cooperative, well kempt and well developed Orientation / Consciousness: awake, oriented to person, oriented to place and oriented to time HEENT normocephalic, head/scalp atraumatic, hearing grossly normal bilaterally and moist oral mucous membranes Eyes PERRL, EOMs intact bilaterally and conjunctivae normal Neck supple, no JVD, thyroid normal and no carotid bruits General: trachea midline Resp no retractions Resp Narrative: Patient becomes dyspneic on minimal exertion, lung evans are clear bilaterally however, no rhonchi rales or wheezes are noted.? Use of accessory muscles were noted on minimal exertion. Auscultation: Negative for rales, rhonchi or wheezes Cardio S1 normal heart sound, S2 normal heart sound, no murmurs, no rub and no gallops Cardio Narrative: Heart rate and rhythm is irregular GI normal to inspection, nondistended, normoactive bowel sounds, soft to palpation, non-tender and non-distended GI Narrative: Ileostomy is present Extremity Extremity Narrative: Mild lower leg edema is noted bilaterally Skin no rashes or lesions noted General Skin Exam: no breakdown Neuro oriented x3, CN's II-XII intact bilaterally, no focal motor deficits and no sensory deficits noted Sensorium / Orientation: awake, alert, oriented to person, oriented to place and oriented to time Speech: speech normal Psych affect normal Assessment & Plan Assessment/Plan (1) Pancytopenia due to antineoplastic chemotherapy: (2) Pneumonia: PLAN: Plan 1. Community-acquired pneumonia right lung-it is unclear at this point if the patient actually has pneumonia versus a lung reaction from his Keytruda, antibi otics will be continued for now, patient's MRSA nasal swab was positive yesterday. Patient is being seen by pulmonary medicine #2 hypoxia secondary to #1-patient's pulse ox will be monitored, he is currently on nasal cannula oxygen #3 non-small cell lung cancer with metastases to the bone-patient receives outpatient chemotherapy and immunotherapy, his last treatment was July 15, 2022. Complicates care, recovery, management, and prognosis. #4 chronic atrial fibrillation with tachycardia today-I feel the patient's tachycardia is probably due to his respiratory embarrassment, patient will be monitored on telemetry and will remain on his rate limiting medication and Eliquis #5 hypercoagulable state secondary to chronic atrial fibrillation and underlying cancer-patient's Eliquis is being held due to low platelet count #6 history of bladder carcinoma with cystectomy-patient has an ileostomy #7 GERD-patient is on a PPI #8 past history of prostate cancer-according to oncology, this is not an active oncological problem #9 pancytopenia-patient's CBC will be monitored, platelet count was lower today, his Xarelto was held due to his low platelet count. Patient was placed on Gra nix today by oncology. #10 diarrhea-possibly secondary to colitis from Keytruda, I have placed the patient on Imodium and Bentyl at this time. Charges/Coding Visit Charges Inpatient E&M: 93760 Subs Hosp L2
[2022-07-25] MEDS: Gabapentin 300 MG Capsule PO (21:21)
[2022-07-26] VITALS (22 sets, daily range): BP systolic 108–133; BP diastolic 54–85; PULSE 71–115; RESP 20–24; TEMP 36.3–36.7; O2SAT 84–97
--- NOTE | 2022-07-26 01:00 | RAD_ITS ---
EXAM: XR CHEST, 1 VIEW CLINICAL INDICATION: sob TECHNIQUE: Frontal view of the chest. This report was created using [employer] report generation technology. COMPARISON: Previous chest radiograph of 07/24/2022 and 04/03/2016. Chest CT of 07/24/2022. FINDINGS: LUNGS AND PLEURAL SPACES: Extensive airspace disease throughout the right lung is again noted, unchanged. Minimal patchy airspace disease and groundglass opacities within the left mid to upper lung showing minimal interval worsening as compared to the prior chest radiograph; corresponding groundglass opacities were seen in these areas on the prior CT. No pneumothorax or pleural effusion. HEART: Heart size remains mildly enlarged. Pulmonary vascular markings are obscured. MEDIASTINUM: Stable mild elongation and calcification of the thoracic aorta. BONES/JOINTS: No acute osseous abnormality. 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 SOFT TISSUES: Unremarkable. TUBES, LINES AND DEVICES: Cardiac pacemaker and MediPort catheter remain in place. RAD/Chest 1 View (Portable) IMPRESSION: Findings of bilateral pneumonia, right greater than left; the right-sided infiltrates are stable while the less severe infiltrates within the left mid to upper lung shows minimal interval worsening, as compared with the chest radiograph of 2 days ago. Electronically Signed: Wiley Rosario MD at 2:03 EST ,
[2022-07-26 02:53] LABS: Vancomycin, Trough Level 14.6 ug/mL (5.0-15.0)
--- NOTE | 2022-07-26 04:11 | PCM.RX.CS ---
Consult Pharmacy has been consulted to manage selected antiobiotic: Vancomycin Type of Consult: Follow-up Labs: Sodium 134 mmol/L (136-145) L 07/25/22 04:51 Potassium 3.4 mmol/L (3.5-5.1) L 07/25/22 04:51 Chloride 101 mmol/L (98-107) 07/25/22 04:51 Carbon Dioxide 23.0 mmol/L (21.0-32.0) 07/25/22 04:51 Anion Gap 10 (5-15) 07/25/22 04:51 BUN 19 mg/dL (7-18) H 07/25/22 04:51 Creatinine 1.13 mg/dL (0.70-1.30) 07/25/22 04:51 Est GFR (MDRD) Af Amer 81 mL/min (>60) 07/25/22 04:51 Est GFR (MDRD) Non-Af 67 mL/min (>60) 07/25/22 04:51 BUN/Creatinine Ratio 16.8 RATIO (10-20) 07/25/22 04:51 Glucose 168 mg/dL (74-106) H 07/25/22 04:51 Vancomycin Trough 14.6 ug/mL (5.0-15.0) 07/26/22 01:35 Microbiology: Microbiology 07/24/22 17:00 Sputum, Expectorated/Coughed Gram Stain - Final 07/24/22 16:45 Urine Catheter - Catheter Legionella Antigen - Final 07/24/22 16:45 Urine Catheter - Catheter Streptococcus pneumoniae Antigen (M - Final 07/24/22 12:52 Mucosa - Nasopharyngeal Respiratory Panel (PCR) - Final 07/24/22 Unknown Nasal Secretion SARS-CoV-2 Antigen (Rapid) - Final Goal Trough: 15-20 mcg/mL Pharmacy Plan for Drug Dosing: Pharmacy Service will continue to monitor and adjust dosing as required. TROUGH 14.6 @ 11 HOURS. NO CHANGES, FOLLOW UP TROUGH IN 2 DAYS Follow-Up Labs: Trough Vancomycin Labs to be done on [date and time ordered]: 07/28 @ 5010
[2022-07-26] MEDS: Dicyclomine 10 MG Capsule 20 MG PO ×3 (05:42→15:45)
[2022-07-26 07:27] LABS: Absolute Neutrophil Count 5.7 X10^3/uL (2.0-7.7); Basophil# 0.01 X10^3/uL; Basophil% 0.1 % (0-1); Hematocrit 23.3 % (40-54); Hemoglobin 7.3 g/dL (13.0-16.5); Lymphocyte % 4.5 % (19-41); Mean Corp Hgb Conc 31.3 g/dL (32-36); Mean Corpuscular Hgb 30.5 pg (27.0-32.0); Mean Corpuscular Volume 97.5 fL (80-94); Mean Platelet Vol. 12.5 fl (6.2-12.0); Monocyte# 0.59 X10^3/uL; Monocyte% 8.8 % (0-10); NRBC Flagged by Analyzer 0.6 % (0-5); Neutrophil # 5.65 X10^3/uL (2.7-7.7); Neutrophil % 84.7 % (47-70); POSITIVE COUNT YES; POSITIVE DIFFERENTIAL YES; POSITIVE MORPHOLOGY YES; RBC Distribution Width CV 15.6 % (11.6-14.6); RBC Distribution Width SD 55.7 fl (35.1-43.9); Red Blood Count 2.39 M/mm3 (4.6-6.2); White Blood Count 6.7 K/mm3 (4.4-11.0)
[2022-07-26] MEDS: Ipratropium/Albuterol Sulfate 3 ML AMPUL.NEB INHALATION ×3 (07:35→19:40)
[2022-07-26 07:42] LABS: Anion Gap 8 (5-15); BUN 33 mg/dL (7-18); BUN/Creat Ratio 31.1 RATIO (10-20); Calcium,Total 8.2 mg/dL (8.5-10.1); Chloride 108 mmol/L (98-107); Creatinine, Serum 1.06 mg/dL (0.70-1.30); EST Glomerular Filtration Rate 72 mL/min (>60); Est Glom Filt Rate - Afr Amer 87 mL/min (>60); Glucose 153 mg/dL (74-106); Sodium Level 138 mmol/L (136-145)
[2022-07-26 07:46] LABS: Platelet Count 26 K/mm3 (150-450)
[2022-07-26 07:47] LABS: Differential Indicated SCAN CRITERIA MET
[2022-07-26] MEDS: Pantoprazole Sodium 20 MG Tablet PO (08:10)
[2022-07-26] MEDS: Metoprolol(XL)Succ 50 MG Tablet 75 MG PO ×2 (08:10→20:34)
[2022-07-26] MEDS: dilTIAZem CD 180 MG Capsule PO ×2 (08:10→20:34)
[2022-07-26] MEDS: Potassium Chloride Oral Tablet 20 MEQ PO ×2 (08:10→17:31)
[2022-07-26] MEDS: Folic Acid 1 MG Tablet PO (08:10)
--- NOTE | 2022-07-26 08:24 | PN.CC_ITS ---
Assessment & Plan Assessment/Plan (1) Pancytopenia due to antineoplastic chemotherapy: (2) Lung cancer metastatic to bone: (3) Hypoxia: PLAN: Plan RECOMMENDATIONS: 1. Supplemental oxygen to maintain saturations at or above 90%. Interval if necessary 2. Continue empiric antimicrobials. 3. Continue corticosteroids as ordered. 4. Continue Granix until neutropenia resolves. 5. Continue baseline Eliquis. 6. Encourage incentive spirometer use and mobilize patient as tolerated. IMPRESSIONS: 1. 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 Anticipate slow improvement with corticosteroids. In light of his underlying pancytopenia, it is certainly reasonable to continue empiric broad-spectrum antimicrobials, to cover for a superimposed bacterial pneumonia as well. The patient is stable from a respiratory perspective on nasal cannula oxygen, which can be continued to maintain saturations at or above 90%. Stressed to the patient importance of continued ambulation 2. History of metastatic lung cancer with pancytopenia Continue outpatient follow-up with oncology. Granix with plans to continue until neutropenia resolves. 3. Chronic atrial fibrillation/history of bladder CA/history of prostate CA/GERD Complicates care, management, recovery and prognosis. Continue home medications as indicated. This note was generated with [employer] dictation software. It may contain incorrect words, spelling, and punctuation that were not noted in checking the note before signing. Subjective Subjective Patient did okay overnight. No acute issues were reported. Patient does report significant dyspnea on exertion with standing at the bedside and estimates 10 to 15 minutes of recovery. Patient does have a cough, but not producing sputum. Objective Data Objective Data Vital Signs: Vital Signs Temp Pulse Resp BP Pulse Ox O2 Del Method O2 Flow Rate 36.4 C L 84 20 H 108/64 92 Non-Rebreather @ 15L/min and Airvo 7 07/26/22 06:56 07/26/22 08:10 07/26/22 07:36 07/26/22 06:56 07/26/22 07:36 07/26/22 08:03 07/26/22 08:03 Oxygen Flow Rate (L/min) 7 Oxygen Delivery Method Non-Rebreather @ 15L/min Weight: 89.358 kg Body Mass Index (BMI) 30.8 Intake & Output: Intake and Output for Last 24 Hours 07/24/22 07/25/22 07/26/22 23:59 23:59 23:59 Intake Total 725 / 1525 1530 / 1730 615 / 615 Output Total 300 / 925 2575 / 2925 850 / 850 Balance 425 / 600 -1045 / -1195 -235 / -235 Lab / Micro Data Attestation: I reviewed the patient's lab results. Result Diagrams: 07/26/22 07:10 07/26/22 07:10 Labs: Laboratory Results - last 24 hr 07/24/22 11:15: Diff Path Review Reviewed 07/26/22 01:35: Vancomycin Trough 14.6 07/26/22 07:10: WBC 6.7, RBC 2.39 L, Hgb 7.3 L, Hct 23.3 L, MCV 97.5 H, MCH 30.5, MCHC 31.3 L, RDW Std Deviation 55.7 H, RDW Coeff of Foster 15.6 H, Plt Count 26 L*, MPV 12.5 H, Immature Gran % (Auto) 1.900 H, Neut % (Auto) 84.7 H, Lymph % (Auto) 4.5 L, [place] % (Auto) 8.8, Eos % (Auto) 0.0, Baso % (Auto) 0.1, Absolute Neuts (auto) 5.7, Absolute Lymphs (auto) 0.30 L, Nucleated RBC % 0.6 07/26/22 07:10: Sodium 138, Potassium 4.0, Chloride 108 H, Carbon Dioxide 22.0, Anion Gap 8, BUN 33 H, Creatinine 1.06, Estim Creat Clear Calc 53.70, Est GFR (MDRD) Af Amer 87, Est GFR (MDRD) Non-Af 72, BUN/Creatinine Ratio 31.1 H, Glu cose 153 H, Calcium 8.2 L Micro: Microbiology 07/24/22 17:00 Sputum, Expectorated/Coughed Gram Stain - Final 07/24/22 16:45 Urine Catheter - Catheter Legionella Antigen - Final 07/24/22 16:45 Urine Catheter - Catheter Streptococcus pneumoniae Antigen (M - Final 07/24/22 12:52 Mucosa - Nasopharyngeal Respiratory Panel (PCR) - Final 07/24/22 Unknown Nasal Secretion SARS-CoV-2 Antigen (Rapid) - Final Radiography Diagnostic Testing: Radiology Impression Chest X-Ray 07/26/22 01:00 IMPRESSION: Findings of bilateral pneumonia, right greater than left; the right-sided infiltrates are stable while the less severe infiltrates within the left mid to upper lung shows minimal interval worsening, as compared with the chest radiograph of 2 days ago. Electronically Signed: Wiley Rosario MD at 2:03 EST , Physical Exam Const alert and no apparent distress General Appearance: cooperative HEENT normocephalic, head/scalp atraumatic and moist oral mucous membranes Eyes PERRL, EOMs intact bilaterally and conjunctivae normal Neck supple General: trachea midline Chest Chest Narrative: Stable chest wall port. Resp normal respiratory effort Resp Narrative: Rales present, right greater than left Effort and Inspection: able to speak in complete sentences; Negative for labored Cardio S1 normal heart sound and S2 normal heart sound Rhythm: abnormal rhythm GI normal to inspection, nondistended, normoactive bowel sounds Extremity no clubbing, cyanosis or edema Skin no rashes or lesions noted Neuro oriented x3, CN's II-XII intact bilaterally, moves all extremities and no focal motor deficits Psych cooperative and affect normal Charges/Coding Visit Charges Inpatient E&M: 73870 Subs Hosp L3
[2022-07-26 09:20] LABS: Differential Comment SCANNED; Platelet Estimate MKD DEC (ADEQ)
--- NOTE | 2022-07-26 11:29 | ONC.PN.INPT ---
Subjective Subjective Feels okay at rest. Reamins on high flow O2. No fever. Not much sputum. No chest pain. Physical Exam Const alert and oriented x3 Chest Chest: symmetrical chest wall rise Resp Resp Narrative: Tachypnic Cardio Rhythm: regular rhythm Extremity Extremity Narrative: No sweling or pitting edema now. Vital Signs Temperature 97.4 F L 07/26/22 10:48 Temperature Source Oral 07/26/22 10:48 Pulse Rate 89 07/26/22 10:48 Respiratory Rate 22 H 07/26/22 10:48 Respiratory Effort 07/26/22 08:03 Respiratory Depth Normal 07/25/22 19:30 Respiratory Pattern Tachypnea 07/26/22 02:10 Blood Pressure 110/54 L 07/26/22 10:48 Blood Pressure Mean 72 07/26/22 10:48 Blood Pressure Source Monitor 07/25/22 23:36 Blood Pressure Position Semi-Fowlers 07/25/22 23:36 Blood Pressure Location Right Arm 07/25/22 23:36 Pulse Ox 92 07/26/22 10:48 Oxygen Delivery Method High Flow 07/26/22 10:48 Oxygen Flow Rate (L/min) 7.5 07/26/22 10:48 Laboratory Results - last 24 hr 07/24/22 11:15: Diff Path Review Reviewed 07/26/22 01:35: Vancomycin Trough 14.6 07/26/22 07:10: WBC 6.7, RBC 2.39 L, Hgb 7.3 L, Hct 23.3 L, MCV 97.5 H, MCH 30.5, MCHC 31.3 L, RDW Std Deviation 55.7 H, RDW Coeff of Foster 15.6 H, Plt Count 26 L*, MPV 12.5 H, Immature Gran % (Auto) 1.900 H, Neut % (Auto) 84.7 H, Lymph % (Auto) 4.5 L, [place] % (Auto) 8.8, Eos % (Auto) 0.0, Baso % (Auto) 0.1, Absolute Neuts (auto) 5.7, Absolute Lymphs (auto) 0.30 L, Nucleated RBC % 0.6, Differential Comment SCANNED, Diff Path Review November foll, Platelet Estimate MKD 07/26/22 07:10: Sodium 138, Potassium 4.0, Chloride 108 H, Carbon Dioxide 22.0, Anion Gap 8, BUN 33 H, Creatinine 1.06, Estim Creat Clear Calc 53.70, Est GFR (MDRD) Af Amer 87, Est GFR (MDRD) Non-Af 72, BUN/Creatinine Ratio 31.1 H, Glucose 153 H, Calcium 8.2 L Microbiology 07/24/22 17:00 Sputum, Expectorated/Coughed Gram Stain - Final 07/24/22 17:00 Sputum, Expectorated/Coughed Respiratory Culture - Preliminary Staphylococcus aureus Diagnostic Data Chest CT 07/24/22 15:14 IMPRESSION: Moderate right greater than left groundglass opacities. Findings are indeterminate for covid19. Pleural-parenchymal spiculated lesion along the major fissure on the right probably representing interval enlargement of previously noted small spiculated lesion and suspicious for neoplasm. Coronary artery disease. Heterogeneous left adrenal mass demonstrated interval enlargement and suspicious for metastatic disease. Electronically Signed: Fermin Thomas MD at 16:31 EST , Chest X-Ray 07/26/22 01:00 IMPRESSION: Findings of bilateral pneumonia, right greater than left; the right-sided infiltrates are stable while the less severe infiltrates within the left mid to upper lung shows minimal interval worsening, as compared with the chest radiograph of 2 days ago. 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 On high segura steroid. -Respiratory vial pathogen panel negative. -No fever or other suggestion sepsis now--ANC recovered. -Small amount staph in sputum of unclear clinical significance. -History of atrial fibrillation on anticoagulation with apixababn. -History decreased LVEF. Not requiring diuretics. -Pancytopenia likely due to recent pemetrexed. However, anemia may be multifactorial including MARIA M secondarty to GI blood loss given use of anticoagulation. Plan: -Continue respiratory supportive care and high dose solumedrol. -Continue PPI and consider acyclovir 400 mg BID for shingles prophylaxis and either inhaled pentamidine of oral Bactrim for PCP prophylaxis as he may be on long, slow tapering course of steroids. -Check retic, iron and other labs to work up anemia further. -Monitor counts. -Continue broad spectrum antibiotics. -Can d/c Granix after today's dose.
[2022-07-26 12:23] LABS: Immature Platelet Fraction 10.5 % (1.0-7.9); RET-HE 31.5 pg (30-35); Reticulocyte Count 0.75 % (0.5-1.5)
[2022-07-26 12:48] LABS: Ferritin 3157 ng/mL (26-388); Iron 37 ug/dL (65-175); Iron Binding Capacity,Total 127 ug/dL (250-450); PERCENT IRON SATURATION 29.1 % (15.0-55.0)
[2022-07-26] MEDS: 0.9% Saline Lock 10 ML Syringe IV ×2 (13:53→15:45)
--- NOTE | 2022-07-26 14:25 | NURSING ---
Notified Dr Matos, that pt states he is more sob this afternoon, nurse assessed lungs having more crackles this afternoon than this am. Said he would order lasix.
--- NOTE | 2022-07-26 15:32 | PN.HOSP_ITS ---
Subjective Subjective Patient was seen and examined today, I briefly talked with his today also, patient's white blood cell count is improved today, platelet count is slightly lower, hemoglobin appears stable. Patient is on higher oxygen requirement today, pulmonary medicine saw him today for ongoing care in the hospital and I briefly talked with him about the case. Objective Data Objective Data Vital Signs: Vital Signs Temp Pulse Resp BP Pulse Ox O2 Del Method O2 Flow Rate 97.4 F L 100 22 H 110/54 L 92 High Flow 7.5 07/26/22 10:48 07/26/22 13:57 07/26/22 10:48 07/26/22 10:48 07/26/22 10:48 07/26/22 13:57 07/26/22 13:57 Oxygen Flow Rate (L/min) 7.5 Oxygen Delivery Method High Flow Weight: 89.358 kg Body Mass Index (BMI) 30.8 Intake & Output: Intake and Output for Last 24 Hours 07/24/22 07/25/22 07/26/22 23:59 23:59 23:59 Intake Total 725 / 1525 1530 / 1730 715 / 715 Output Total 300 / 925 2575 / 2925 1350 / 1350 Balance 425 / 600 -1045 / -1195 -635 / -635 Lab / Micro Data Result Diagrams: 07/26/22 07:10 07/26/22 07:10 Labs: Laboratory Results - last 24 hr 07/26/22 01:35: Vancomycin Trough 14.6 07/26/22 07:10: WBC 6.7, RBC 2.39 L, Hgb 7.3 L, Hct 23.3 L, MCV 97.5 H, MCH 30.5, MCHC 31.3 L, RDW Std Deviation 55.7 H, RDW Coeff of Foster 15.6 H, Plt Count 26 L*, MPV 12.5 H, Immature Gran % (Auto) 1.900 H, Neut % (Auto) 84.7 H, Lymph % (Auto) 4.5 L, [place] % (Auto) 8.8, Eos % (Auto) 0.0, Baso % (Auto) 0.1, Absolute Neuts (auto) 5.7, Absolute Lymphs (auto) 0.30 L, Nucleated RBC % 0.6, Differential Comment SCANNED, Diff Path Review May foll, Platelet Estimate MKD 07/26/22 07:10: Sodium 138, Potassium 4.0, Chloride 108 H, Carbon Dioxide 22.0, Anion Gap 8, BUN 33 H, Creatinine 1.06, Estim Creat Clear Calc 53.70, Est GFR (MDRD) Af Amer 87, Est GFR (MDRD) Non-Af 72, BUN/Creatinine Ratio 31.1 H, Glucose 153 H, Calcium 8.2 L 07/26/22 07:10: Immature Plt Fraction 10.5 H, Retic Count 0.75, Immature Retic Fraction 42.50 H, Retic Hgb Equivalent 31.5 07/26/22 07:10: Iron 37 L, TIBC 127 L, Iron Saturation 29.1, Ferritin 3157 H, Folate 18.10 Micro: Microbiology 07/24/22 17:00 Sputum, Expectorated/Coughed Gram Stain - Final 07/24/22 17:00 Sputum, Expectorated/Coughed Respiratory Culture - P reliminary Staphylococcus aureus 07/24/22 16:45 Urine Catheter - Catheter Legionella Antigen - Final 07/24/22 16:45 Urine Catheter - Catheter Streptococcus pneumoniae Antigen (M - Final 07/24/22 12:52 Mucosa - Nasopharyngeal Respiratory Panel (PCR) - Final 07/24/22 Unknown Nasal Secretion SARS-CoV-2 Antigen (Rapid) - Final Radiography Diagnostic Testing: Radiology Impression Chest X-Ray 07/26/22 01:00 IMPRESSION: Findings of bilateral pneumonia, right greater than left; the right-sided infiltrates are stable while the less severe infiltrates within the left mid to upper lung shows minimal interval worsening, as compared with the chest radiograph of 2 days ago. Electronically Signed: Wiley Rosario MD at 2:03 EST , Physical Exam Const alert, oriented x3 and no apparent distress General Appearance: cooperative, well kempt and well developed Orientation / Consciousness: awake, oriented to person, oriented to place and oriented to time HEENT normocephalic, head/scalp atraumatic and moist oral mucous membranes Eyes PERRL, EOMs intact bilaterally and conjunctivae normal Neck supple, no JVD, thyroid normal and no carotid bruits General: trachea midline Resp normal respiratory effort and no retractions Resp Narrative: Inspiratory rales were noted bilaterally Auscultation: Negative for rales, rhonchi or wheezes Cardio no rub and no gallops Cardio Narrative: Heart rate and rhythm is irregular GI normal to inspection, nondistended, normoactive bowel sounds, soft to palpation, non-tender and non-distended Extremity Extremity Narrative: Mild lower leg edema is noted bilaterally Skin no rashes or lesions noted General Skin Exam: no breakdown Neuro oriented x3, CN's II-XII intact bilaterally, no focal motor deficits and no sensory deficits noted Sensorium / Orientation: awake and alert Speech: speech normal Psych affect normal Assessment & Plan Assessment/Plan (1) Pneumonitis: (2) Pancytopenia due to antineoplastic chemotherapy: (3) Pneumonia: PLAN: Plan 1. Community-acquired pneumonia right lung-it is unclear at this point if the patient actually has pneumonia versus a lung reaction from his Keytruda, antibiotics will be continued for now, patient's MRSA nasal swab was positive yesterday. Patient is being seen by pulmonary medicine #2 hypoxia secondary to #1-patient's pulse ox will be monitored, he is currently on nasal cannula oxygen #3 non-small cell lung cancer with metastases to the bone-patient receives ou tpatient chemotherapy and immunotherapy, his last treatment was July 15, 2022. Complicates care, recovery, management, and prognosis. #4 chronic atrial fibrillation with tachycardia today-I feel the patient's tachycardia is probably due to his respiratory embarrassment, patient will be monitored on telemetry and will remain on his rate limiting medication and Eliquis #5 hypercoagulable state secondary to chronic atrial fibrillation and underlying cancer-patient's Eliquis is being held due to low platelet count #6 history of bladder carcinoma with cystectomy-patient has an ileostomy #7 GERD-patient is on a PPI #8 past history of prostate cancer-according to oncology, this is not an active oncological problem #9 pancytopenia-patient's CBC will be monitored, platelet count was lower today, his Xarelto was held due to his low platelet count. Patient was placed on Granix today by oncology. #10 diarrhea-possibly secondary to colitis from Keytruda, I have placed the patient on Imodium and Bentyl at this time. #11 acute sepsis-present on admission-exact bacterial infection unknown at this time, patient will remain on empiric antibiotic treatment, patient's sputum culture grew out +1 staff aureus-it is unknown whether this is an offending organism at this time. I administered 1 dose of Lasix IV due to concerns of fluid retention today. Charges/Coding Visit Charges Inpatient E&M: 91165 Subs Hosp L2
[2022-07-26] MEDS: Furosemide 40 MG/4 ML Vial IV (15:45)
[2022-07-26] MEDS: Gabapentin 300 MG Capsule PO (21:40)
--- NOTE | 2022-07-26 23:04 | EKG12_ITS ---
Test Reason : CP Blood Pressure : / mmHG Vent. Rate : 103 BPM Atrial Rate : 120 BPM P-R Int : 000 ms QRS Dur : 100 ms QT Int : 302 ms P-R-T Axes : 000 029 265 degrees QTc Int : 395 ms Atrial fibrillation with premature ventricular or aberrantly conducted complexes Nonspecific ST and T wave abnormality Abnormal ECG Confirmed by REJI HILL, FABRICIO ([id number]), film and video editor ARTUR PATRICK ([id number]) on 07/30/2022 10:39:36 AM Referred By: RAMESH Confirmed By:FABRICIO MENDOZA MD
[2022-07-27] VITALS (31 sets, daily range): BP systolic 94–146; BP diastolic 30–78; PULSE 70–101; RESP 14–30; TEMP 36.3–36.9; O2SAT 92–96
[2022-07-27 01:08] LABS: Troponin-I HS 117 pg/mL (3.0-78.0)
[2022-07-27 03:12] LABS: Troponin-I HS 140 pg/mL (3.0-78.0)
[2022-07-27] MEDS: Aspirin 325 MG Tablet PO (03:14)
[2022-07-27] MEDS: Dicyclomine 10 MG Capsule 20 MG PO ×3 (05:49→17:21)
--- NOTE | 2022-07-27 06:05 | RAD_ITS ---
INDICATION: pneumonia EXAMINATION/TECHNIQUE: X-RAY - XR Chest 1 View COMPARISON: 07/26/2022 FINDINGS: LINES/DEVICES: Right IJ central venous catheter, left [employer] shunt and left chest pacemaker remain in similar positions. LUNGS: Bilateral hazy and patchy opacities worst in the right lung, similar compared to the prior. MEDIASTINUM AND CARDIOVASCULAR STRUCTURES: Atherosclerotic calcifications and cardiomediastinal contours, similar compared to the prior. BONES AND SOFT TISSUES: Degenerative changes in the left shoulder and visualized spine, similar to the prior. No acute osseous abnormality.. RAD/Chest 1 View (Portable) IMPRESSION: Bilateral airspace disease, similar compared to the prior. Electronically Signed: Sergio Menon MD at 7:24 EST ,
[2022-07-27] MEDS: Ipratropium/Albuterol Sulfate 3 ML AMPUL.NEB INHALATION ×3 (07:10→19:03)
[2022-07-27 07:40] LABS: Absolute Lymphocyte Count 0.67 X10^3/uL (0.83-4.51); Absolute Neutrophil Count 11.6 X10^3/uL (2.0-7.7); Basophil# 0.05 X10^3/uL; Basophil% 0.4 % (0-1); Hematocrit 24.6 % (40-54); Hemoglobin 8.1 g/dL (13.0-16.5); Lymphocyte # 0.67 X10^3/ul (0.83-4.51); Lymphocyte % 4.9 % (19-41); Mean Corp Hgb Conc 32.9 g/dL (32-36); Mean Corpuscular Hgb 31.8 pg (27.0-32.0); Mean Corpuscular Volume 96.5 fL (80-94); Monocyte# 0.69 X10^3/uL; Monocyte% 5.1 % (0-10); NRBC Flagged by Analyzer 1.1 % (0-5); Neutrophil # 11.55 X10^3/uL (2.7-7.7); Neutrophil % 85.2 % (47-70); POSITIVE COUNT YES; POSITIVE MORPHOLOGY YES; RBC Distribution Width CV 15.9 % (11.6-14.6); RBC Distribution Width SD 56.5 fl (35.1-43.9); Red Blood Count 2.55 M/mm3 (4.6-6.2); White Blood Count 13.6 K/mm3 (4.4-11.0)
[2022-07-27 07:57] LABS: Differential Indicated SCAN CRITERIA MET; Platelet Count 33 K/mm3 (150-450)
[2022-07-27 08:12] LABS: Anion Gap 12 (5-15); BUN 40 mg/dL (7-18); BUN/Creat Ratio 28.4 RATIO (10-20); Calcium,Total 8.4 mg/dL (8.5-10.1); Chloride 104 mmol/L (98-107); Creatinine, Serum 1.41 mg/dL (0.70-1.30); EST Glomerular Filtration Rate 52 mL/min (>60); Est Glom Filt Rate - Afr Amer 63 mL/min (>60); Estimated Creatinine Clearance 40.37 ml/min; Glucose 151 mg/dL (74-106); Potassium 3.4 mmol/L (3.5-5.1); Sodium Level 136 mmol/L (136-145); Troponin-I HS 220 pg/mL (3.0-78.0)
[2022-07-27] MEDS: Potassium Chloride Oral Tablet 20 MEQ PO ×2 (08:31→17:21)
[2022-07-27] MEDS: Metoprolol(XL)Succ 50 MG Tablet 75 MG PO ×2 (08:31→21:49)
[2022-07-27] MEDS: Pantoprazole Sodium 20 MG Tablet PO (08:31)
[2022-07-27] MEDS: Aspirin 81 MG TAB.CHEW PO (08:32)
[2022-07-27] MEDS: dilTIAZem CD 180 MG Capsule PO ×2 (08:32→21:49)
[2022-07-27] MEDS: Folic Acid 1 MG Tablet PO (08:32)
--- NOTE | 2022-07-27 08:32 | PN.CC_ITS ---
Assessment & Plan Assessment/Plan (1) Pancytopenia due to antineoplastic chemotherapy: (2) Lung cancer metastatic to bone: (3) Hypoxia: PLAN: Plan RECOMMENDATIONS: 1. Supplemental oxygen to maintain saturations at or above 90%. Interval BiPAP if necessary 2. Discontinue vancomycin. Add Levaquin given allergies. 3. Continue corticosteroids as ordered. 4. Continue Granix until neutropenia resolves. 5. Continue baseline Eliquis. Defer to oncology if this should be held given thrombocytopenia 6. Encourage incentive spirometer use and mobilize patient as tolerated. IMPRESSIONS: 1. 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 Anticipat e slow improvement with corticosteroids. Patient appears to be growing MSSA from his sputum. Patient will be transition from vancomycin to Levaquin given allergies. This should help patient's fluid intake. The patient is stable from a respiratory perspective on nasal cannula oxygen, which can be continued to maintain saturations at or above 90%. Stressed to the patient importance of continued ambulation 2. History of metastatic lung cancer with pancytopenia Continue outpatient follow-up with oncology. Granix with plans to continue until neutropenia resolves. 3. Chronic atrial fibrillation/history of bladder CA/history of prostate CA/GERD Complicates care, management, recovery and prognosis. Continue home medications as indicated. Defer to oncology if Eliquis should be held given thrombocytopenia. 4. Acute kidney injury Creatinine is significantly elevated today. This may be secondary to Lasix yesterday. We will attempt to volume restrict without active diuresis to see if there is improvement. This note was generated with Tap[employer] dictation software. It may contain incorrect words, spelling, and punctuation that were not noted in checking the note before signing. Subjective Subjective Patient with worsening oxygenation overnight. Patient is reporting heavy arms and more dyspnea on exertion. No bleeding has been reported. Patient's is at the bedside during my evaluation Objective Data Objective Data Vital Signs: Vital Signs Temp Pulse Resp BP Pulse Ox O2 Del Method O2 Flow Rate 36.4 C L 70 21 H 94/60 94 Airvo 50 07/27/22 07:45 07/27/22 07:45 07/27/22 07:45 07/27/22 07:45 07/27/22 07:30 07/27/22 07:45 07/27/22 07:45 FiO2 70 07/27/22 07:45 Oxygen Flow Rate (L/min) 50 Oxygen Delivery Method Airvo Weight: 89.358 kg Body Mass Index (BMI) 30.8 Intake & Output: Intake and Output for Last 24 Hours 07/25/22 07/26/22 07/27/22 23:59 23:59 23:59 Intake Total 1530 / 1730 1080 / 1680 865 / 865 Output Total 2575 / 2925 2960 / 4060 1999 Balance -1045 / -1195 -1880 / -2380 -1135 / -1135 Lab / Micro Data Attestation: I reviewed the patient's lab results. Result Diagrams: 07/27/22 05:56 07/27/22 05:56 Labs: Laboratory Results - last 24 hr 07/26/22 07:10: Differential Comment SCANNED, Diff Path Review November katrina, Platelet Estimate MKD 07/26/22 07:10: Immature Plt Fraction 10.5 H, Retic Count 0.75, Immature Retic Fraction 42.50 H, Retic Hgb Equivalent 31.5 07/26/22 07:10: Iron 37 L, TIBC 127 L, Iron Saturation 29.1, Ferritin 3157 H, Folate 18.10 07/27/22 00:28: Troponin I High Sens 117 H 07/27/22 02:22: Troponin I High Sens 140 H* 07/27/22 05:56: WBC 13.6 H, RBC 2.55 L, Hgb 8.1 L, Hct 24.6 L, MCV 96.5 H, MCH 31.8, MCHC 32.9 D, RDW Std Deviation 56.5 H, RDW Coeff of Foster 15.9 H, Plt Count 33 L*, Immature Gran % (Auto) 4.400 H, Neut % (Auto) 85.2 H, Lymph % (Auto) 4.9 L, [place] % (Auto) 5.1, Eos % (Auto) 0.0, Baso % (Auto) 0.4, Absolute Neuts (auto) 11.6 H, Absolute Lymphs (auto) 0.67 L, Nucleated RBC % 1.1 07/27/22 05:56: Sodium 136, Potassium 3.4 L, Chloride 104, Carbon Dioxide 20.0 L , Anion Gap 12, BUN 40 H, Creatinine 1.41 H, Estim Creat Clear Calc 40.37, Est GFR (MDRD) Af Amer 63, Est GFR (MDRD) Non-Af 52 L, BUN/Creatinine Ratio 28.4 H, Glucose 151 H, Calcium 8.4 L, Troponin I High Sens 220 H* Micro: Microbiology 07/24/22 17:00 Sputum, Expectorated/Coughed Gram Stain - Final 07/24/22 17:00 Sputum, Expectorated/Coughed Respiratory Culture - Final Staphylococcus aureus 07/24/22 12:20 Blood Culture (Wb) - Anticubital Left Blood Culture - Prelimi nary No growth in 48 hours. 07/24/22 16:45 Urine Catheter - Catheter Legionella Antigen - Final 07/24/22 16:45 Urine Catheter - Catheter Streptococcus pneumoniae Antigen (M - Final 07/24/22 12:52 Mucosa - Nasopharyngeal Respiratory Panel (PCR) - Final 07/24/22 Unknown Nasal Secretion SARS-CoV-2 Antigen (Rapid) - Final Radiography Diagnostic Testing: Radiology Impression Chest X-Ray 07/27/22 06:05 IMPRESSION: Bilateral airspace disease, similar compared to the prior. Electronically Signed: Sergio Menon MD at 7:24 EST , Physical Exam Const alert and no apparent distress General Appearance: cooperative HEENT normocephalic, head/scalp atraumatic and moist oral mucous membranes Eyes PERRL, EOMs intact bilaterally and conjunctivae normal Neck supple General: trachea midline Chest Chest Narrative: Stable chest wall port. Resp normal respiratory effort Resp Narrative: Rales present, right greater than left Effort and Inspection: able to speak in complete sentences; Negative for labored Auscultation: rales; Negative for rhonchi or wheezes Cardio S1 normal heart sound and S2 normal heart sound Rhythm: abnormal rhythm GI normal to inspection, nondistended, normoactive bowel sounds Extremity Extremity Narrative: Increased upper extremity edema General Extremity: edema Skin no rashes or lesions noted Neuro oriented x3, CN's II-XII intact bilaterally, moves all extremities and no focal motor deficits Psych cooperative and affect normal Charges/Coding Visit Charges Inpatient E&M: 03043 Subs Hosp L3
[2022-07-27] MEDS: levoFLOXacin 750 MG Tablet PO (10:08)
[2022-07-27 10:14] LABS: Differential Comment SCANNED
[2022-07-27 10:15] LABS: Platelet Estimate MKD DEC (ADEQ)
--- NOTE | 2022-07-27 14:38 | PN.ONC_ITS ---
Subjective Subjective On Airvo now. Remains with tachypnea. No other complaints. Diarrhea stopped. Physical Exam Const alert and oriented x3 Chest Chest: symmetrical chest wall rise Cardio regular rhythm Vital Signs Temperature 97.6 F L 07/27/22 11:37 Temperature Source Axillary 07/27/22 11:37 Pulse Rate 81 07/27/22 12:22 Pulse Strength Normal (2+) 07/27/22 08:48 Respiratory Rate 14 07/27/22 12:22 Respiratory Effort Labored 07/27/22 08:49 Respiratory Depth Normal 07/27/22 08:49 Respiratory Pattern Normal 07/27/22 12:22 Blood Pressure 115/78 07/27/22 11:37 Blood Pressure Mean 90 07/27/22 11:37 Blood Pressure Source Monitor 07/27/22 11:37 Blood Pressure Position Semi-Fowlers 07/27/22 05:46 Blood Pressure Location Right Arm 07/27/22 05:46 Pulse Ox 94 07/27/22 11:37 Oxygen Delivery Method Airvo 07/27/22 11:37 Oxygen Flow Rate (L/min) 50 07/27/22 10:13 Fraction of Inspired Oxygen (FIO2) 60 07/27/22 10:13 Laboratory Results - last 24 hr 07/27/22 00:28: Troponin I High Sens 117 H 07/27/22 02:22: Troponin I High Sens 140 H* 07/27/22 05:56: WBC 13.6 H, RBC 2.55 L, Hgb 8.1 L, Hct 24.6 L, MCV 96.5 H, MCH 31.8, MCHC 32.9 D, RDW Std Deviation 56.5 H, RDW Coeff of Foster 15.9 H, Plt Count 33 L*, Immature Gran % (Auto) 4.400 H, Neut % (Auto) 85.2 H, Lymph % (Auto) 4.9 L, [place] % (Auto) 5.1, Eos % (Auto) 0.0, Baso % (Auto) 0.4, Absolute Neuts (auto) 11.6 H, Absolute Lymphs (auto) 0.67 L, Nucleated RBC % 1.1, Differential Comment SCANNED, Diff Path Review November, Platelet Estimate MKD 07/27/22 05:56: Sodium 136, Potassium 3.4 L, Chloride 104, Carbon Dioxide 20.0 L , Anion Gap 12, BUN 40 H, Creatinine 1.41 H, Estim Creat Clear Calc 40.37, Est GFR (MDRD) Af Amer 63, Est GFR (MDRD) Non-Af 52 L, BUN/Creatinine Ratio 28.4 H, Glucose 151 H, Calcium 8.4 L, Troponin I High Sens 220 H* Microbiology 07/24/22 17:00 Sputum, Expectorated/Coughed Gram Stain - Final 07/24/22 17:00 Sputum, Expectorated/Coughed Respiratory Culture - Final Staphylococcus aureus 07/24/22 12:20 Blood Culture (Wb) - Anticubital Left Blood Culture - Preliminary No growth in [address] 07/24/22 15:14 IMPRESSION: Moderate right greater than left groundglass opacities. Findings are indeterminate for covid19. Pleural-parenchymal spiculated lesion along the major fissure on the right probably representing interval enlargement of previously noted small spiculated lesion and suspicious for neoplasm. Coronary artery disease. Heterogeneous left adrenal mass demonstrated interval enlargement and suspicious for metastatic disease. Electronically Signed: Fermin Thomas MD at 16:31 EST , Chest X-Ray 07/27/22 06:05 IMPRESSION: Bilateral airspace disease, similar compared to the prior. 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 On high dose steroid. -Respiratory vial pathogen panel negative. -No fever or other suggestion sepsis now--ANC recovered. -Small amount staph in sputum of unclear clinical significance--on Levoquin. -History of atrial fibrillation on anticoagulation with apixababn--on hold. Continues on ASA. -History decreased LVEF. Received one dose Lasix yesterday. Increase in serum Cr. -Pancytopenia likely due to recent pemetrexed. Iron studies indicated anemia of chronic disease. B12 pending. Platel Plan: -Continue respiratory supportive care and high dose solumedrol. -Continue PPI and consider acyclovir 400 mg BID for shingles prophylaxis and either inhaled pentamidine of oral Bactrim for PCP prophylaxis as he may be on long, slow tapering course of steroids. -Monitor counts. -Continue antibiotics.
--- NOTE | 2022-07-27 16:45 | PCM.PN.HOSP ---
Subjective Subjective Was seen and examined today, I talked with critical care briefly about his care, patient's sputum culture resulted positive for MSSA. Patient is currently on Airvo, his creatinine bumped up slightly from yesterday. Objective Data Objective Data Vital Signs: Vital Signs Temp Pulse Resp BP Pulse Ox O2 Del Method O2 Flow Rate 97.8 F 82 21 H 106/60 93 Airvo 50 07/27/22 15:00 07/27/22 15:00 07/27/22 15:00 07/27/22 15:00 07/27/22 15:00 07/27/22 15:00 07/27/22 15:00 FiO2 60 07/27/22 15:00 Oxygen Flow Rate (L/min) 50 Oxygen Delivery Method Airvo Weight: 89.358 kg Body Mass Index (BMI) 30.8 Intake & Output: Intake and Output for Last 24 Hours 07/25/22 07/26/22 07/27/22 23:59 23:59 23:59 Intake Total 1530 / 1730 1080 / 1680 965 / 965 Output Total 2575 / 2925 2960 / 4060 2700 / 2700 Balance -1045 / -1195 -1880 / -2380 -1735 / -1735 Lab / Micro Data Result Diagrams: 07/27/22 05:56 07/27/22 05:56 Labs: Laboratory Results - last 24 hr 07/27/22 00:28: Troponin I High Sens 117 H 07/27/22 02:22: Troponin I High Sens 140 H* 07/27/22 05:56: WBC 13.6 H, RBC 2.55 L, Hgb 8.1 L, Hct 24.6 L, MCV 96.5 H, MCH 31.8, MCHC 32.9 D, RDW Std Deviation 56.5 H, RDW Coeff of Foster 15.9 H, Plt Count 33 L*, Immature Gran % (Auto) 4.400 H, Neut % (Auto) 85.2 H, Lymph % (Auto) 4.9 L, [place] % (Auto) 5.1, Eos % (Auto) 0.0, Baso % (Auto) 0.4, Absolute Neuts (auto) 11.6 H, Absolute Lymphs (auto) 0.67 L, Nucleated RBC % 1.1, Differential Comment SCANNED, Diff Path Review May foll, Platelet Estimate MKD 07/27/22 05:56: Sodium 136, Potassium 3.4 L, Chloride 104, Carbon Dioxide 20.0 L, Anion Gap 12, BUN 40 H, Creatinine 1.41 H, Estim Creat Clear Calc 40.37, Est GFR (MDRD) Af Amer 63, Est GFR (MDRD) Non-Af 52 L, BUN/Creatinine Ratio 28.4 H, Glucose 151 H, Calcium 8.4 L, Troponin I High Sens 220 H* Micro: Microbiology 07/24/22 17:00 Sputum, Expectorated/Coughed Gram Stain - Final 07/24/22 17:00 Sputum, Expectorated/Coughed Respiratory Culture - Final Staphylococcus aureus 07/24/22 12:20 Blood Culture (Wb) - Anticubital Left Blood Culture - Preliminary No growth in 48 hours. 07/24/22 16:45 Urine Catheter - Catheter Legionella Antigen - Final 07/24/22 16:45 Urine Catheter - Catheter Streptococcus pneumoniae Antigen (M - Final 07/24/22 12:52 Mucosa - Nasopharyngeal Respiratory Panel (PCR) - Final 07/24/22 Unknown Nasal Secretion SARS-CoV-2 Antigen (Rapid) - Final Radiography Diagnostic Testing: Radiology Impression Chest X-Ray 07/27/22 06:05 IMPRESSION: Bilateral airspace disease, similar compared to the prior. Electronically Signed: Sergio Menon MD at 7:24 EST , Physical Exam Narrative alert, oriented x3 and no apparent distress General Appearance: cooperative, well kempt and well developed Orientation / Consciousness: awake, oriented to person, oriented to place and oriented to time HEENT normocephalic, head/scalp atraumatic and moist oral mucous membranes Eyes PERRL, EOMs intact bilaterally and conjunctivae normal Neck supple, no JVD, thyroid normal and no carotid bruits General: trachea midline Resp Patient appears to have shallow rapid respirations at times during my examination Resp Narrative: Inspiratory rales were noted bilaterally Cardio no rub and no gallops Cardio Narrative: Heart rate and rhythm is irregular GI normal to inspection, nondistended, normoactive bowel sounds, soft to palpation, non-tender and non-distended Extremity Extremity Narrative: Mild lower leg edema is noted bilaterally Skin no rashes or lesions noted General Skin Exam: no breakdown Neuro oriented x3, CN's II-XII intact bilaterally, no focal motor deficits and no sensory deficits noted Sensorium / Orientation: awake and alert Speech: speech normal Psych affect normal Assessment & Plan Assessment/Plan (1) Pancytopenia due to antineoplastic chemotherapy: (2) Pneumonitis: (3) Pneumonia: PLAN: Plan 1. Community-acquired pneumonia-staph aureus, continue Levaquin and cefepime #2 Acute hypoxic respiratory failure-patient is currently on Airvo at this time, prognosis remains guarded #3 non-small cell lung cancer with metastases to the bone-patient receives outpatient chemotherapy and immunotherapy, his last treatment was July 15, 2022. Complicates care, recovery, management, and prognosis. I talked briefly with Dr. Del Rio concerning his care today #4 chronic atrial fibrillation-currently under good rate control #5 hypercoagulable state secondary to chronic atrial fibrillation and underlying cancer-patient's Eliquis is being held due to low platelet count #6 history of bladder carcinoma with cystectomy-patient has an ileostomy #7 GERD-patient is on a PPI #8 past history of prostate cancer-according to oncology, this is not an active oncological problem #9 pancytopenia-corrected at this time high-patient has bicytopenia at this time with a low platelet count and hemoglobin, labs will be monitored #10 diarrhea-possibly secondary to colitis from Keytruda, this is resolved at this time, I have stopped his Bentyl and Imodium #11 acute sepsis-secondary to staph aureus pneumonia-continue present antibiotic treatment Charges/Coding Visit Charges Inpatient E&M: 39063 Subs Hosp L2
[2022-07-27] MEDS: 0.9% Saline Lock 10 ML Syringe IV (21:51)
[2022-07-28] VITALS (25 sets, daily range): BP systolic 104–165; BP diastolic 59–99; PULSE 58–124; RESP 14–96; TEMP 36.2–37.7; O2SAT 85–100
[2022-07-28 02:00] LABS: Hematocrit 24.4 % (40-54); Hemoglobin 7.7 g/dL (13.0-16.5); Mean Corp Hgb Conc 31.6 g/dL (32-36); Mean Corpuscular Hgb 30.6 pg (27.0-32.0); Mean Corpuscular Volume 96.8 fL (80-94); POSITIVE COUNT YES; POSITIVE MORPHOLOGY YES; RBC Distribution Width CV 16.2 % (11.6-14.6); RBC Distribution Width SD 57.1 fl (35.1-43.9); Red Blood Count 2.52 M/mm3 (4.6-6.2)
[2022-07-28 02:03] LABS: Differential Indicated MANUAL DIFF; Platelet Count 34 K/mm3 (150-450)
[2022-07-28 02:29] LABS: Anion Gap 9 (5-15); BUN 43 mg/dL (7-18); BUN/Creat Ratio 33.6 RATIO (10-20); Calcium,Total 8.5 mg/dL (8.5-10.1); Chloride 107 mmol/L (98-107); Creatinine, Serum 1.28 mg/dL (0.70-1.30); EST Glomerular Filtration Rate 58 mL/min (>60); Est Glom Filt Rate - Afr Amer 70 mL/min (>60); Estimated Creatinine Clearance 44.47 ml/min; Glucose 172 mg/dL (74-106); Potassium 3.9 mmol/L (3.5-5.1); Sodium Level 137 mmol/L (136-145)
[2022-07-28 02:31] LABS: Vancomycin, Trough Level 16.1 ug/mL (5.0-15.0)
[2022-07-28 02:32] LABS: Lymphocyte 11 % (19-41); Monocyte 4 % (0-10); Neutrophil-Band 1 % (0-5); Neutrophil-Segmented 84 % (47-70); Nucleated Red Bld Cells,Manual 5 % (0-5); Total Cells Counted 100 (MANUAL DIFF)
[2022-07-28 02:34] LABS: Absolute Lymphocyte Count 1.62 X10^3/uL (0.83-4.51); Absolute Neutrophil Count 12.5 X10^3/uL (2.0-7.7); Lymphocyte # 1.62 X10^3/ul (0.83-4.51); Platelet Estimate MKD DEC (ADEQ)
[2022-07-28 02:35] LABS: Polychromasia RARE; Red Cell Morphology N CYTIC NORMAL (NORM C&C)
[2022-07-28 02:36] LABS: Hypersegmented Neutrophils RARE
[2022-07-28 02:37] LABS: Ovalocyte RARE
[2022-07-28] MEDS: 0.9% Saline Lock 10 ML Syringe IV ×4 (06:02→15:11)
[2022-07-28] MEDS: Dicyclomine 10 MG Capsule 20 MG PO (06:13)
[2022-07-28] MEDS: Ipratropium/Albuterol Sulfate 3 ML AMPUL.NEB INHALATION ×2 (07:47→13:43)
[2022-07-28] MEDS: Metoprolol(XL)Succ 50 MG Tablet 75 MG PO ×2 (07:55→22:55)
[2022-07-28] MEDS: Pantoprazole Sodium 20 MG Tablet PO (07:56)
[2022-07-28] MEDS: Aspirin 81 MG TAB.CHEW PO (07:56)
[2022-07-28] MEDS: Potassium Chloride Oral Tablet 20 MEQ PO (07:56)
[2022-07-28] MEDS: dilTIAZem CD 180 MG Capsule PO ×2 (07:56→22:55)
[2022-07-28] MEDS: Folic Acid 1 MG Tablet PO (07:57)
--- NOTE | 2022-07-28 08:20 | PN.CC_ITS ---
Assessment & Plan Assessment/Plan (1) Pancytopenia due to antineoplastic chemotherapy: (2) Lung cancer metastatic to bone: (3) Hypoxia: PLAN: Plan RECOMMENDATIONS: 1. Supplemental oxygen to maintain saturations at or above 90%. Interval BiPAP if necessary 2. Complete 7 days of Levaquin. Defer to oncology/hospitalist, but cefepime can likely be discontinued 3. Continue corticosteroids as ordered. Likely transition to p.o. once patient is on 60% FiO2 or less 4. No indication for platelet transfusion from my perspective 5. Continue baseline Eliquis. Defer to oncology if this should be held given thrombocytopenia 6. Encourage incentive spirometer use and mobilize patient as tolerated. IMPRESSIONS: 1. 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 Anticipate slow improvement with corticosteroids. Patient appears to be growing MSSA from his sputum. Likely complete a 7-day course of Levaquin. Possibly diuresis tomorrow if renal function continues to improve. 2. History of metastatic lung cancer with pancytopenia Continue outpatient follow-up with oncology. Granix with plans to continue until neutropenia resolves. 3. Chronic atrial fibrillation/history of bladder CA/history of prostate CA/GERD Complicates care, management, recovery and prognosis. Continue home medications as indicated. Defer to oncology if Eliquis should be held given thrombocytopenia. 4. Acute kidney injury Creatinine is significantly improved today. This may be secondary to Lasix 48 hours ago. We will attempt to volume restrict without active diuresis to see if there is improvement. Possible repeat challenge tomorrow of Lasix This note was generated with [employer] dictation software. It may contain incorrect words, spelling, and punctuation that were not noted in checking the note before signing. Subjective Subjective Patient continues to have waxing and waning oxygen requirements. Patient has been between 70% and 95% FiO2 requirements in the last 24 hours. Patient is reporting intermittent anxiety. Patient has not had much production from his cough. No bleeding complications have been reported. Patient does have to have pulse ox obtained from his ear given peripheral circulation issues. Objective Data Objective Data Vital Signs: Vital Signs Temp Pulse Resp BP Pulse Ox O2 Del Method O2 Flow Rate 36.4 C L 90 36 H 119/70 92 Airvo 60 07/28/22 06:00 07/28/22 07:55 07/28/22 07:47 07/28/22 06:00 07/28/22 07:57 07/28/22 07:57 07/28/22 07:57 FiO2 84 07/28/22 07:57 Oxygen Flow Rate (L/min) 60 Oxygen Delivery Method Airvo Weight: 89.358 kg Body Mass Index (BMI) 30.8 Intake & Output: Intake and Output for Last 24 Hours 07/26/22 07/27/22 07/28/22 23:59 23:59 23:59 Intake Total 1080 / 1680 1065 / 1065 Output Total 2960 / 4060 3800 / 3800 450 / 450 Balance -1880 / -2380 -2735 / -2735 -450 / -450 Lab / Micro Data Attestation: I reviewed the patient's lab results. Result Diagrams: 07/28/22 01:39 07/28/22 01:39 Labs: Laboratory Results - last 24 hr 07/27/22 05:56: Differential Comment SCANNED, Diff Path Review Tisha herndon Platelet Estimate MKD DEC 07/28/22 01:39: Vancomycin Trough 16.1 H 07/28/22 01:39: WBC WELDER PRODUCTION LINE GAS, Corrected WBC 14.0 H, RBC 2.52 L, Hgb 7.7 L, Hct 24.4 L, MCV 96.8 H, MCH 30.6, MCHC 31.6 L, RDW Std Deviation 57.1 H, RDW Coeff of Foster 16.2 H, Plt Count 34 L*, Neut % (Auto) Not Reportable, Absolute Neuts (auto) 12.5 H, Absolute Lymphs (auto) 1.62, Total Counted 100, Neutrophils % (Manual) 84 H, Band Neutrophils % 1, Lymphocytes % (Manual) 11 L, Monocytes % (Manual) 4, Nucleated RBCs/100 WBC 5, Diff Path Review May katrina, Hypersegmented Neuts RARE H , Platelet Estimate MKD JUN, RBC Morphology N CYTIC, Polychromasia RARE, Ovalocytes RARE 07/28/22 01:39: Sodium 137, Potassium 3.9, Chloride 107, Carbon Dioxide 21.0, Anion Gap 9, BUN 43 H, Creatinine 1.28, Estim Creat Clear Calc 44.47, Est GFR (MDRD) Af Amer 70, Est GFR (MDRD) Non-Af 58 L, BUN/Creatinine Ratio 33.6 H, Glucose 172 H, Calcium 8.5 Micro: Microbiology 07/24/22 17:00 Sputum, Expectorated/Coughed Gram Stain - Final 07/24/22 17:00 Sputum, Expectorated/Coughed Respiratory Culture - Final Staphylococcus aureus 07/24/22 12:20 Blood Culture (Wb) - Anticubital Left Blood Culture - Preliminary No growth in 48 hours. 07/24/22 16:45 Urine Catheter - Catheter Legionella Antigen - Final 07/24/22 16:45 Urine Catheter - Catheter Streptococcus pneumoniae Antigen (M - Final 07/24/22 12:52 Mucosa - Nasopharyngeal Respiratory Panel (PCR) - Final 07/24/22 Unknown Nasal Secretion SARS-CoV-2 Antigen (Rapid) - Final Physical Exam Const alert Constitutional Narrative: Anxious during my evaluation. Conversational dyspnea noted. General Appearance: cooperative and in distress Positive for moderate HEENT normocephalic, head/scalp atraumatic and moist oral mucous membranes Eyes PERRL, EOMs intact bilaterally and conjunctivae normal Neck supple General: trachea midline Chest Chest Narrative: Stable chest wall port. Resp normal respiratory effort Resp Narrative: Rales present, right greater than left Effort and Inspection: able to speak in complete sentences; Negative for labored Auscultation: rales; Negative for rhonchi or wheezes Cardio S1 normal heart sound and S2 normal heart sound Rhythm: abnormal rhythm GI normal to inspection, nondistended, normoactive bowel sounds Extremity Extremity Narrative: Increased upper extremity edema General Extremity: edema Skin no rashes or lesions noted Neuro oriented x3, CN's II-XII intact bilaterally, moves all extremities and no focal motor deficits Psych cooperative Mood & Affect: anxious Charges/Coding Visit Charges Inpatient E&M: 71221 Subs Hosp L3
[2022-07-28 10:19] LABS: Hematocrit 24.3 % (40-54); Mean Corp Hgb Conc 32.9 g/dL (32-36); Mean Corpuscular Hgb 31.7 pg (27.0-32.0); Mean Corpuscular Volume 96.4 fL (80-94); Mean Platelet Vol. 11.2 fl (6.2-12.0); POSITIVE COUNT YES; POSITIVE DIFFERENTIAL YES; POSITIVE MORPHOLOGY YES; RBC Distribution Width CV 16.3 % (11.6-14.6); RBC Distribution Width SD 57.1 fl (35.1-43.9); Red Blood Count 2.52 M/mm3 (4.6-6.2); White Blood Count 14.5 K/mm3 (4.4-11.0)
[2022-07-28 10:33] LABS: Differential Indicated MANUAL DIFF; Platelet Count 32 K/mm3 (150-450)
[2022-07-28 10:46] LABS: Anion Gap 8 (5-15); BUN 46 mg/dL (7-18); BUN/Creat Ratio 37.7 RATIO (10-20); Calcium,Total 8.2 mg/dL (8.5-10.1); Chloride 108 mmol/L (98-107); Creatinine, Serum 1.22 mg/dL (0.70-1.30); EST Glomerular Filtration Rate 61 mL/min (>60); Est Glom Filt Rate - Afr Amer 74 mL/min (>60); Estimated Creatinine Clearance 46.66 ml/min; Glucose 163 mg/dL (74-106); Sodium Level 138 mmol/L (136-145)
[2022-07-28 11:21] LABS: Lymphocyte 5 % (19-41); Metamyelocyte 1 % (0-1); Monocyte 1 % (0-10); Myelocyte 2 % (0-0); Neutrophil-Band 5 % (0-5); Neutrophil-Segmented 86 % (47-70); Nucleated Red Bld Cells,Manual 1 % (0-5); Platelet Estimate MKD DEC (ADEQ); Red Cell Morphology NORM C+C NORMAL (NORM C&C); Total Cells Counted 100 (MANUAL DIFF)
[2022-07-28 11:22] LABS: Absolute Neutrophil Count 13.2 X10^3/uL (2.0-7.7)
[2022-07-28 11:23] LABS: Absolute Lymphocyte Count 0.73 X10^3/uL (0.83-4.51)
--- NOTE | 2022-07-28 11:59 | NURSING ---
[id number] called nurse into room, pt woke up a few minutes ago, items appear black from the bottom of left eye, follows finger movement appropriately. Dr Atkinson notified, he called this nurse at 1200, said to monitor it. Nurse checked with pt and he said it was better.
--- NOTE | 2022-07-28 14:00 | CPS ---
pt unable to tolerate PAP machine, feels like he can't breathe with it on., RT told RN & Dr Atkinson.
[2022-07-28] MEDS: LORazepam 2 MG/ML Syringe 0.25 MG IV ×2 (14:27→23:10)
[2022-07-28] MEDS: Furosemide 20 MG/2 ML VIAL IV (15:10)
--- NOTE | 2022-07-28 15:20 | PN.ONC_ITS ---
Subjective Subjective Just placed on BiPAP. Physical Exam Chest Chest: symmetrical chest wall rise Vital Signs Temperature 97.9 F 07/28/22 14:38 Temperature Source Oral 07/28/22 14:38 Pulse Rate 95 07/28/22 15:00 Pulse Strength Normal (2+) 07/27/22 22:00 Respiratory Rate 32 H 07/28/22 15:00 Respiratory Effort 07/28/22 14:45 Respiratory Depth Normal 07/28/22 03:00 Respiratory Pattern Tachypnea 07/28/22 15:00 Blood Pressure 146/74 H 07/28/22 14:38 Blood Pressure Mean 98 07/28/22 14:38 Blood Pressure Source Monitor 07/28/22 14:38 Blood Pressure Position Semi-Fowlers 07/28/22 14:38 Blood Pressure Location Right Arm 07/28/22 14:38 Pulse Ox 97 07/28/22 15:00 Oxygen Delivery Method Airvo 07/28/22 14:45 Oxygen Flow Rate (L/min) 60 07/28/22 14:45 Fraction of Inspired Oxygen (FIO2) 100 07/28/22 15:00 Laboratory Results - last 24 hr 07/28/22 01:39: Vancomycin Trough 16.1 H 07/28/22 01:39: 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, 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 WBC 14.0 H, RBC 2.52 L, Hgb 7.7 L, Hct 24.4 L, MCV 96.8 H, MCH 30.6, MCHC 31.6 L, RDW Std Deviation 57.1 H, RDW Coeff of Foster 16.2 H, Plt Count 34 L*, Neut % (Auto) Not Reportable, Absolute Neuts (auto) 12.5 H, Absolute Lymphs (auto) 1.62, Total Counted 100, Neutrophils % (Manual) 84 H, Band Neutrophils % 1, Lymphocytes % (Manual) 11 L, Monocytes % (Manual) 4, Nucleated RBCs/100 WBC 5, Diff Path Review May foll, Hypersegmented Neuts RARE H , Platelet Estimate MKD DEC, RBC Morphology N CYTIC, Polychromasia RARE, Ovalocytes RARE 07/28/22 01:39: Sodium 137, Potassium 3.9, Chloride 107, Carbon Dioxide 21.0, A nion Gap 9, BUN 43 H, Creatinine 1.28, Estim Creat Clear Calc 44.47, Est GFR (MDRD) Af Amer 70, Est GFR (MDRD) Non-Af 58 L, BUN/Creatinine Ratio 33.6 H, Glucose 172 H, Calcium 8.5 07/28/22 09:57: WBC 14.5 H, RBC 2.52 L, Hgb 8.0 L, Hct 24.3 L, MCV 96.4 H, MCH 31.7, MCHC 32.9, RDW Std Deviation 57.1 H, RDW Coeff of Foster 16.3 H, Plt Count 32 L*, MPV 11.2, Neut % (Auto) Not Reportable, Absolute Neuts (auto) 13.2 H, Absolute Lymphs (auto) 0.73 L, Total Counted 100, Neutrophils % (Manual) 86 H, Band Neutrophils % 5, Lymphocytes % (Manual) 5 L, Monocytes % (Manual) 1, Metamyelocytes % 1, Myelocytes % 2 H, Nucleated RBCs/100 WBC 1, Diff Path Review November, Platelet Estimate MKD DEC, RBC Morphology NORM C+C 07/28/22 09:57: Sodium 138, Potassium 4.0, Chloride 108 H, Carbon Dioxide 22.0, Anion Gap 8, BUN 46 H, Creatinine 1.22, Estim Creat Clear Calc 46.66, Est GFR (MDRD) Af Amer 74, Est GFR (MDRD) Non-Af 61, BUN/Creatinine Ratio 37.7 H, Glucose 163 H, Calcium 8.2 L Diagnostic Data Chest CT 07/24/22 15:14 IMPRESSION: Moderate right greater than left groundglass opacities. Findings are indeterminate for covid19. Pleural-parenchymal spiculated lesion along the major fissure on the right probably representing interval enlargement of previously noted small spiculated lesion and suspicious for neoplasm. Coronary artery disease. Heterogeneous left adrenal mass demonstrated interval enlargement and suspicious for metastatic disease. Electronically Signed: Fermin Thomas MD at 16:31 EST , Chest X-Ray 07/27/22 06:05 IMPRESSION: Bilateral airspace disease, similar compared to the prior. 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 On high dose steroid. Respiratory status worsening. -Respiratory vial pathogen panel negative. -No fever or other suggestion sepsis now--ANC recovered. -Small amount staph in sputum of unclear clinical significance--on Levoquin. -History of atrial fibrillation on anticoagulation with apixababn--on hold. Continues on ASA. -History decreased LVEF. Serum Cr improved. -Pancytopenia likely due to recent pemetrexed. Iron studies indicated anemia of chronic disease. Plan: -Continue respiratory supportive care and high dose solumedrol. -He is being taking to the ICU due to need for BiPAP. -Agree with trial of diuresis. -Continue PPI and consider acyclovir 400 mg BID for shingles prophylaxis and either inhaled pentamidine of oral Bactrim for PCP prophylaxis as he may be on long, slow tapering course of steroids. -Monitor counts. -Continue levofloxacin.
--- NOTE | 2022-07-28 15:26 | NURSING ---
Report called to Jeanne Alonso RN.
--- NOTE | 2022-07-28 15:53 | NURSING ---
1545 transferred to ICU.
--- NOTE | 2022-07-28 16:56 | PN.HOSP_ITS ---
Subjective Subjective Patient was seen and examined today, he had to be transitioned to BiPAP this afternoon due to the fact he was not oxygenating on the Airvo. Patient at first did not tolerate the change-he became too anxious, I added a small amount of Ativan IV and he was able to tolerate the BiPAP. I found it necessary to transfer him to the ICU due to his increased oxygen requirement. I talked briefly with the patient and his before I moved him. Patient was also given 20 of Lasix IV in an attempt to mobilize some fluids. Objective Data Objective Data Vital Signs: Vital Signs Temp Pulse Resp BP Pulse Ox O2 Del Method O2 Flow Rate 97.1 F L 101 H 96 H 148/93 H 100 Bi-pap 60 07/28/22 16:00 07/28/22 16:42 07/28/22 16:42 07/28/22 16:42 07/28/22 16:42 07/28/22 16:42 07/28/22 14:45 FiO2 100 07/28/22 16:42 Oxygen Flow Rate (L/min) 60 Oxygen Delivery Method Bi-pap Weight: 89.358 kg Body Mass Index (BMI) 30.8 Intake & Output: Intake and Output for Last 24 Hours 07/26/22 07/27/22 07/28/22 23:59 23:59 23:59 Intake Total 1080 / 1680 1065 / 1065 100 / 100 Output Total 2960 / 4060 3800 / 3800 1000 / 1000 Balance -1880 / -2380 -2735 / -2735 -900 / -900 Lab / Micro Data Result Diagrams: 07/28/22 09:57 07/28/22 09:57 Labs: Laboratory Results - last 24 hr 07/28/22 01:39: Vancomycin Trough 16.1 H 07/28/22 01:39: 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, 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 WBC 14.0 H, RBC 2.52 L, Hgb 7.7 L, Hct 24.4 L, MCV 96.8 H, MCH 30.6, MCHC 31.6 L, RDW Std Deviation 57.1 H, RDW Coeff of Foster 16.2 H, Plt Count 34 L*, Neut % (Auto) Not Reportable, Absolute Neuts (auto) 12.5 H, Absolute Lymphs (auto) 1.62, Total Counted 100, Neutrophils % (Manual) 84 H, Band Neutrophils % 1, Lymphocytes % (Manual) 11 L, Monocytes % (Manual) 4, Nucleated RBCs/100 WBC 5, Diff Path Review May foll, Hypersegmented Neuts RARE H , Platelet Estimate MKD DEC, RBC Morphology N CYTIC, Polychromasia RARE, Ovalocytes RARE 07/28/22 01:39: Sodium 137, Potassium 3.9, Chloride 107, Carbon Dioxide 21.0, Anion Gap 9, BUN 43 H, Creatinine 1.28, Estim Creat Clear Calc 44.47, Est GFR (MDRD) Af Amer 70, Est GFR (MDRD) Non-Af 58 L, BUN/Creatinine Ratio 33.6 H, Glucose 172 H, Calcium 8.5 07/28/22 09:57: WBC 14.5 H, RBC 2.52 L, Hgb 8.0 L, Hct 24.3 L, MCV 96.4 H, MCH 31.7, MCHC 32.9, RDW Std Deviation 57.1 H, RDW Coeff of Foster 16.3 H, Plt Count 32 L*, MPV 11.2, Neut % (Auto) Not Reportable, Absolute Neuts (auto) 13.2 H, Absolute Lymphs (auto) 0.73 L, Total Counted 100, Neutrophils % (Manual) 86 H, Band Neutrophils % 5, Lymphocytes % (Manual) 5 L, Monocytes % (Manual) 1, Metamyelocytes % 1, Myelocytes % 2 H, Nucleated RBCs/100 WBC 1, Diff Path Review May foll, Platelet Estimate MKD DEC, RBC Morphology NORM C+C 07/28/22 09:57: Sodium 138, Potassium 4.0, Chloride 108 H, Carbon Dioxide 22.0, Anion Gap 8, BUN 46 H, Creatinine 1.22, Estim Creat Clear Calc 46.66, Est GFR (MDRD) Af Amer 74, Est GFR (MDRD) Non-Af 61, BUN/Creatinine Ratio 37.7 H, Glucose 163 H, Calcium 8.2 L Micro: Microbiology 07/24/22 17:00 Sputum, Expectorated/Coughed Gram Stain - Final 07/24/22 17:00 Sputum, Expectorated/Coughed Respiratory Culture - Final Staphylococcus aureus 07/24/22 12:20 Blood Culture (Wb) - Anticubital Left Blood Culture - Preliminary No growth in 48 hours. 07/24/22 16:45 Urine Catheter - Catheter Legionella Antigen - Final 07/24/22 16:45 Urine Catheter - Catheter Streptococcus pneumoniae Antigen (M - Final 07/24/22 12:52 Mucosa - Nasopharyngeal Respiratory Panel (PCR) - Final 07/24/22 Unknown Nasal Secretion SARS-CoV-2 Antigen (Rapid) - Final Physical Exam Narrative alert, oriented x3 and no apparent distress General Appearance: cooperative, well kempt and well developed Orientation / Consciousness: awake, oriented to person, oriented to place and oriented to time HEENT normocephalic, head/scalp atraumatic and moist oral mucous membranes Eyes PERRL, EOMs intact bilaterally and conjunctivae normal Neck supple, no JVD, thyroid normal and no carotid bruits General: trachea midline Resp Patient appears to have shallow rapid respirations at times during my examination Resp Narrative: Inspiratory rales were noted bilaterally Cardio no rub and no gallops Cardio Narrative: Heart rate and rhythm is irregular GI normal to inspection, nondistended, normoactive bowel sounds, soft to palpation, non-tender and non-distended Extremity Extremity Narrative: Mild lower leg edema is noted bilaterally Skin no rashes or lesions noted General Skin Exam: no breakdown Neuro oriented x3, CN's II-XII intact bilaterally, no focal motor deficits and no sensory deficits noted Sensorium / Orientation: awake and alert Speech: speech normal Psych affect normal Assessment & Plan Assessment/Plan (1) Pneumonitis: (2) Pancytopenia due to antineoplastic chemotherapy: (3) Pneumonia: PLAN: Plan 1. 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 Complicates care, recovery, management, and prognosis. I talked briefly with Dr. Del Rio concerning his care today #4 chronic atrial fibrillation-currently under good rate control #5 hypercoagulable state secondary to chronic atrial fibrillation and underlying cancer-patient's Eliquis is being held due to low platelet count #6 history of bladder carcinoma with cystectomy-patient has an ileostomy #7 GERD-patient is on a PPI #8 past history of prostate cancer-according to oncology, this is not an active oncological problem #9 pancytopenia-corrected at this time high-patient has bicytopenia at this time with a low platelet count and hemoglobin, labs will be monitored #10 diarrhea-possibly secondary to colitis from Keytruda, this is resolved at this time, I have stopped his Bentyl and Imodium #11 acute sepsis-secondary to staph aureus pneumonia-continue present antibiotic treatment #12 possible pneumonitis secondary to Keytruda-patient is on IV corticosteroids at this time, oncology is participating in his care as well as pulmonary medicine. Total clinical time spent by myself addressing the patient's medical issues, reviewing all his data, and collaborating with patient's care team: 38 minutes Charges/Coding Visit Charges Inpatient E&M: 34066 Subs Hosp L2
[2022-07-29] VITALS (22 sets, daily range): BP systolic 118–148; BP diastolic 66–93; PULSE 95–132; RESP 14–45; TEMP 36.6–37.2; O2SAT 31–100
[2022-07-29] MEDS: LORazepam 2 MG/ML Syringe 0.5 MG IV (02:42)
[2022-07-29 05:05] LABS: Hematocrit 25.7 % (40-54); Mean Corp Hgb Conc 31.1 g/dL (32-36); Mean Corpuscular Hgb 30.3 pg (27.0-32.0); Mean Corpuscular Volume 97.3 fL (80-94); POSITIVE COUNT YES; POSITIVE DIFFERENTIAL YES; POSITIVE MORPHOLOGY YES; RBC Distribution Width CV 16.7 % (11.6-14.6); Red Blood Count 2.64 M/mm3 (4.6-6.2)
[2022-07-29 05:06] LABS: Differential Indicated MANUAL DIFF
[2022-07-29 05:07] LABS: Platelet Count 36 K/mm3 (150-450)
[2022-07-29 05:16] LABS: Anion Gap 9 (5-15); BUN 54 mg/dL (7-18); BUN/Creat Ratio 38.3 RATIO (10-20); Calcium,Total 8.5 mg/dL (8.5-10.1); Chloride 110 mmol/L (98-107); Creatinine, Serum 1.41 mg/dL (0.70-1.30); EST Glomerular Filtration Rate 52 mL/min (>60); Est Glom Filt Rate - Afr Amer 63 mL/min (>60); Estimated Creatinine Clearance 40.37 ml/min; Glucose 205 mg/dL (74-106); Potassium 3.8 mmol/L (3.5-5.1); Sodium Level 141 mmol/L (136-145)
[2022-07-29 06:52] LABS: Total Cells Counted 100 (MANUAL DIFF)
[2022-07-29 06:54] LABS: Lymphocyte 4 % (19-41); Metamyelocyte 3 % (0-1); Monocyte 2 % (0-10); Myelocyte 3 % (0-0); Neutrophil-Band 6 % (0-5); Neutrophil-Segmented 81 % (47-70); Nucleated Red Bld Cells,Manual 3 % (0-5); Promyelocyte 1 % (0-0)
[2022-07-29 06:55] LABS: Platelet Estimate MKD DEC (ADEQ); White Blood Count 15.1 K/mm3 (4.4-11.0)
[2022-07-29 06:56] LABS: Anisocytosis RARE; Microcytosis RARE
[2022-07-29 06:57] LABS: Absolute Lymphocyte Count 0.61 X10^3/uL (0.83-4.51); Absolute Neutrophil Count 13.2 X10^3/uL (2.0-7.7); Lymphocyte # 0.61 X10^3/ul (0.83-4.51); Neutrophil # 13.17 X10^3/uL (2.7-7.7)
[2022-07-29] MEDS: LORazepam 2 MG/ML Syringe 0.25 MG IV (07:19)
[2022-07-29] MEDS: Ipratropium/Albuterol Sulfate 3 ML AMPUL.NEB INHALATION ×2 (07:31→14:53)
--- NOTE | 2022-07-29 08:21 | PN.CC_ITS ---
Assessment & Plan Assessment/Plan (1) Pancytopenia due to antineoplastic chemotherapy: (2) Lung cancer metastatic to bone: (3) Hypoxia: PLAN: Plan RECOMMENDATIONS: 1. Supplemental oxygen to maintain saturations at or above 90%. Continue BiPAP versus intubation 2. Complete 7 days of Levaquin. Discontinue cefepime 3. Continue corticosteroids as ordered. Likely transition to p.o. once patient is on 60% FiO2 or less 4. No indication for platelet transfusion from my perspective 5. Monitor off anticoagulation 6. Clarify CODE STATUS IMPRESSIONS: 1. Acute hypoxic respiratory failure secondary to immunotherapy associated pneumonitis/MSSA pneumonia Patient with progression of disease. Clinical suspicion for immunotherapy related pneumonitis as a predominant issue, but also complicated by MSSA pneumonia. Patient is on appropriate antibiotics, but continues to worsen. Given BiPAP dependency despite ongoing steroid therapy, will need to clarify CODE STATUS with the . Patient likely would benefit from palliative measures versus intubation. Treatment options for cancer may be limited as patient likely will not be able to have immunotherapy in the future. Defer to oncology. 2. History of metastatic lung cancer with pancytopenia Continue outpatient follow-up with oncology. Granix with plans to continue until neutropenia resolves. 3. Chronic atrial fibrillation/history of bladder CA/history of prostate CA/GERD Complicates care, management, recovery and prognosis. Continue home medications as indicated. Defer to oncology if Eliquis should be held given thrombocytopenia. 4. Acute kidney injury Creatinine is slightly worse today. No significant response to Lasix therapy noted. We will attempt to volume restrict without active diuresis to see if there is improvement. Addendum 10:05 AM: Extensive conversation with the family at the bedside. They understand that the patient has had significant decline over the last 24 to 48 hours. Family is aware that if aggressive measures are to be pursued, intubation would be required given his high FiO2 requirements and failure to tolerate BiPAP consistently. Patient's daughter repeated he has been through enough several times throughout the conversation. After review of treatment options and prognosis, family is asking for change in goals of therapy. Family is currently on the way in. They would like the family to be at the bedside, including 8 grandchildren, and potentially transitioning to comfort care only later today. They have agreed to a comfort care arrest for now. Discussed with management and they have agreed on grandchildren visiting given goals of therapy. Palliation medications have been ordered with strict instructions that they are not to be given until patient is made comfort care only. Nurse voiced understanding on the plan. TIME: 77 minutes critical care time spent addressing patient's acute hypoxic respiratory failure, acute kidney injury, attempting to clarify CODE STATUS, review of all data and collaboration with care team Subjective Subjective Patient with significant decompensation over the last 24 to 48 hours. Patient now on BiPAP. Per nursing, patient is not tolerating significant break from BiPAP despite diuresis. Nursing has reported the patient is requesting no intubation or CPR overnight. No bleeding has been reported. Patient not clear on CODE STATUS with discussions at bedside. Patient's not currently present. Objective Data Objective Data Vital Signs: Vital Signs Temp Pulse Resp BP Pulse Ox O2 Del Method O2 Flow Rate 37.1 C 111 H 30 H 132/75 H 96 Bi-pap 60 07/29/22 04:00 07/29/22 08:00 07/29/22 07:32 07/29/22 06:00 07/29/22 07:32 07/29/22 06:00 07/28/22 14:45 FiO2 100 07/29/22 07:32 Oxygen Flow Rate (L/min) 60 Oxygen Delivery Method Bi-pap Weight: 88.1 kg Body Mass Index (BMI) 30.8 Intake & Output: Intake and Output for Last 24 Hours 07/27/22 07/28/22 07/29/22 23:59 23:59 23:59 Intake Total 1065 / 1065 360 / 360 100 / 100 Output Total 3800 / 3800 1850 / 2350 900 / 900 Balance -2735 / -2735 -1490 / -1990 -800 / -800 Lab / Micro Data Attestation: I reviewed the patient's lab results. Result Diagrams: 07/29/22 04:43 07/29/22 04:43 Labs: Laboratory Results - last 24 hr 07/28/22 09:57: WBC 14.5 H, RBC 2.52 L, Hgb 8.0 L, Hct 24.3 L, MCV 96.4 H, MCH 31.7, MCHC 32.9, RDW Std Deviation 57.1 H, RDW Coeff of Foster 16.3 H, Plt Count 32 L*, MPV 11.2, Neut % (Auto) Not Reportable, Absolute Neuts (auto) 13.2 H, Absolute Lymphs (auto) 0.73 L, Total Counted 100, Neutrophils % (Manual) 86 H, Band Neutrophils % 5, Lymphocytes % (Manual) 5 L, Monocytes % (Manual) 1, Metamyelocytes % 1, Myelocytes % 2 H, Nucleated RBCs/100 WBC 1, Diff Path Review May katrina, Platelet Estimate MKD DEC, RBC Morphology NORM C+C 07/28/22 09:57: Sodium 138, Potassium 4.0, Chloride 108 H, Carbon Dioxide 22.0, Anion Gap 8, BUN 46 H, Creatinine 1.22, Estim Creat Clear Calc 46.66, Est GFR (MDRD) Af Amer 74, Est GFR (MDRD) Non-Af 61, BUN/Creatinine Ratio 37.7 H, Glucose 163 H, Calcium 8.2 L 07/29/22 04:43: WBC 15.1 H, RBC 2.64 L, Hgb 8.0 L, Hct 25.7 L, MCV 97.3 H, MCH 30.3, MCHC 31.1 L D, RDW Std Deviation 59.0 H, RDW Coeff of Foster 16.7 H, Plt Count 36 L*, MPV TNP, Neut % (Auto) Not Reportable, Absolute Neuts (auto) 13.2 H , Absolute Lymphs (auto) 0.61 L, Total Counted 100, Neutrophils % (Manual) 81 H, Band Neutrophils % 6 H, Lymphocytes % (Manual) 4 L, Monocytes % (Manual) 2, Metamyelocytes % 3 H, Myelocytes % 3 H, Promyelocytes % 1 H, Nucleated RBCs/100 WBC 3, Diff Path Review November katrina, Platelet Estimate MKD DEC, Anisocytosis RARE, Microcytosis RARE 07/29/22 04:43: Sodium 141, Potassium 3.8, Chloride 110 H, Carbon Dioxide 22.0, Anion Gap 9, BUN 54 H, Creatinine 1.41 H, Estim Creat Clear Calc 40.37, Est GFR (MDRD) Af Amer 63, Est GFR (MDRD) Non-Af 52 L, BUN/Creatinine Ratio 38.3 H, Glucose 205 H, Calcium 8.5 Micro: Microbiology 07/24/22 17:00 Sputum, Expectorated/Coughed Gram Stain - Final 07/24/22 17:00 Sputum, Expectorated/Coughed Respiratory Culture - Final Staphylococcus aureus 07/24/22 12:20 Blood Culture (Wb) - Anticubital Left Blood Culture - Preliminary No growth in 48 hours. 07/24/22 16:45 Urine Catheter - Catheter Legionella Antigen - Final 07/24/22 16:45 Urine Catheter - Catheter Streptococcus pneumoniae Antigen (M - Final 07/24/22 12:52 Mucosa - Nasopharyngeal Respiratory Panel (PCR) - Final 07/24/22 Unknown Nasal Secretion SARS-CoV-2 Antigen (Rapid) - Final Physical Exam Const alert Constitutional Narrative: Anxious during my evaluation. On BiPAP with fair synchrony General Appearance: in distress Positive for moderate and frail HEENT normocephalic and head/scalp atraumatic HEENT Narrative: Dry mucous membranes Eyes PERRL, EOMs intact bilaterally and conjunctivae normal Neck supple General: trachea midline Chest Chest Narrative: Stable chest wall port. Resp Resp Narrative: Rales present, right greater than left Effort and Inspection: tachypneic Auscultation: rales; Negative for rhonchi or wheezes Cardio S1 normal heart sound and S2 normal heart sound Rate: tachycardic Rhythm: abnormal rhythm GI normal to inspection, nondistended, normoactive bowel sounds Extremity Extremity Narrative: Increased upper extremity edema General Extremity: edema Skin no rashes or lesions noted Neuro oriented x3, CN's II-XII intact bilaterally, moves all extremities and no focal motor deficits Psych Activity / Motor Behavior: restless Mood & Affect: anxious Charges/Coding Procedures Hospitalists Procedures: 87582 Critial Care 1st Hr Multi Select Codes Hospitalists' Procedures Procedures: 25295 Critial Care Addl 30 Min
[2022-07-29] MEDS: levoFLOXacin IV 750 MG/150 ML BAG 100 MG IV (08:48)
[2022-07-29 09:04] LABS: Vitamin B12 1592 pg/mL (211-911)
--- NOTE | 2022-07-29 10:55 | NURSING ---
gold colored wedding band given to
[2022-07-29] MEDS: LORazepam 2 MG/ML Syringe IV (15:05)
[2022-07-29] MEDS: Morphine 2 MG/ML Syringe IV ×2 (15:06→15:29)
[2022-07-29 15:14] LABS: Pathologist Review Reviewed
--- NOTE | 2022-07-29 15:22 | NURSING ---
family @ bedside, given morphine & ativan as per order, changed to nc@2l per nc
[2022-07-29 15:26] LABS: Pathologist Review Reviewed
--- NOTE | 2022-07-29 15:28 | CHAPLAIN ---
Type of Pastoral Visit _x__ Initial Visit ___ Follow-up Visit ___ On-call Visit ___ General Patient Visit ___ Spiritual Assessment ___ Family Conference ___ Bereavement ___ Rapid Response ___ Code Blue ___ Other (describe below) Pastoral Care Referral From ___ Patient ___ Family _x__ Nurse ___ Physician ___ Clinical Nursing Director ___ Makeup Editor ___ Other (describe below) Sacrament/Intervention ___ Active listening ___ Anointing ___ Restorationism ___ Bereavement ___ Communion _x__ Shawna exploration ___ ___ Life review _x__ Prayer ___ Reconciliation ___ Sacrament of Sick _x__ Supportive presence ___ Wedding ___ Other (describe below) Pastoral Comments RN requested a visit to this patient and his family; patient is not doing well; personnel records clerk of patient was called by family but he has not arrived yet; many family members in the room; introduced self and role; pt is a member of [employer]; spouse is playing gospel music on her phone into ear of patient; pt is able to nod and lift up fingers in response to questions from this supervisor drilling and shooting; pt welcomes prayer and family bows their heads for group prayer; offer of ongoing support given and family expresses appreciation; stopped later in the afternoon again to check on patient;
[2022-07-29 15:33] LABS: Pathologist Review Reviewed
--- NOTE | 2022-07-29 15:36 | NURSING ---
family @ bedside pulse ox 42% on 2l per nc medicated with additional morphine 4mg for total of 6
--- NOTE | 2022-07-29 16:36 | PCM.DEATH ---
Preliminary Cause of Preliminary Cause of Preliminary Cause of : Asystole secondary to hypoxia from bilateral pneumonia Date of Admission: 07/24/22 Date of : 07/29/22 Principle Diagnosis 1. Bilateral pneumonia secondary to staph aureus #2 acute pneumonitis secondary to immunotherapy agent (Keytruda) #3 pancytopenia secondary to chemotherapy #4 metastatic non-small cell lung cancer to bone #5 Acute respiratory distress syndrome secondary to bilateral pneumonia and acute pneumonitis secondary to immunotherapy agent (Keytruda) #6 chronic atrial fibrillation #7 acute sepsis secondary to staph aureus pneumonia #8 hypercoagulable state secondary to atrial fibrillation Problem List: Active and Suspected Problems (Updated 07/26/22 @ 11:[address] Eliecer Del Rio, DO) Pneumonitis (Acute) Pancytopenia due to antineoplastic chemotherapy (Acute) Lung cancer metastatic to bone (Acute) Hypoxia (Acute) Pneumonia (Acute) Sepsis (Acute) Atrial fibrillation with rapid ventricular response (Acute) Prostate cancer metastatic to multiple sites (Acute) Hospital Course This 77-year-old white male was seen in the emergency room at [facility] with a chief complaint of increasing shortness of breath over the last 2 to 3 days prior to being seen in the emergency room. Patient also complained of chills and intermittent temperature spikes over the last 2 to 3 days at home. Patient is getting outpatient chemotherapy and immunotherapy for non-small cell lung cancer. Work-up in the emergency room showed the patient to be pancytopenic, chest x-ray showed a diffuse infiltrate on the right lung, patient required supplemental oxygen at 2 L via nasal cannula to maintain his pulse ox above 90%. Patient's COVID 19 PCR was negative, respiratory panel was negative. Patient was admitted to [place] [id number], he was seen in consultation by pulmonary medicine and oncology, oncology felt that part of the patient's problem was a pneumonitis related to Keytruda administration. Patient was started on IV corticosteroids, he was placed on broad-spectrum antibiotics, patient's sputum resulted positive for staph and it was felt that he had sepsis with staph pneumonia. Patient's respiratory status worsened over the next several days, patient had to be transition to Airvo and then BiPAP, patient's pancytopenia improved with normalization of his white blood cell count but his platelet count and hemoglobin remained low, he did not need a blood transfusion however. Chest x-ray results were consistent with ARDS. On 07/28/2022, patient was moved to the ICU due to increased oxygen requirement and he was placed on BiPAP, conversations were held with the patient the next day along with his and the patient decided that he would be a DNR comfort care and that he wanted the BiPAP removed and wanted to be kept comfortable. At 1552 on 07/29/2022, patient was noted to be pulseless without respirations and no blood pressure. He was pronounced at that time. Visit Charges Inpatient E&M: 69941 Disch Hosp
--- NOTE | 2022-07-29 16:54 | NURSING ---
081 time of family present, Dr Shawna Jaime notified
--- NOTE | 2022-07-29 17:01 | PN.HOSP_ITS ---
Subjective Subjective Patient was seen earlier today, there had been discussion with the nurses and the patient with the patient telling the nurses that he wanted to be a DNR and he did not want any resuscitative efforts done, patient did not want any chest compressions either. Patient's came in approximately 9 AM and I had a 15-m inute discussion with her concerning his CODE STATUS, she stated that his wishes yesterday were to be a full go, I asked her to have a discussion with him when he was more alert today to verify what his wishes would be. When I saw him earlier this morning, he was somnolent and tolerating BiPAP, he was tachycardic and respirations were rapid. Objective Data Objective Data Vital Signs: Vital Signs Temp Pulse Resp BP Pulse Ox O2 Del Method O2 Flow Rate 97.9 F 127 H 38 H 136/85 H 92 Nasal Cannula 2 07/29/22 12:00 07/29/22 14:54 07/29/22 14:54 07/29/22 14:00 07/29/22 15:30 07/29/22 15:20 07/29/22 15:20 FiO2 90 07/29/22 15:30 Oxygen Flow Rate (L/min) 2 Oxygen Delivery Method Nasal Cannula Weight: 88.1 kg Body Mass Index (BMI) 30.8 Intake & Output: Intake and Output for Last 24 Hours 07/27/22 07/28/22 07/29/22 23:59 23:59 23:59 Intake Total 1065 / 1065 360 / 360 360 / 360 Output Total 3800 / 3800 1850 / 2350 900 / 900 Balance -2735 / -2735 -1490 / -1990 -540 / -540 Lab / Micro Data Result Diagrams: 07/29/22 04:43 07/29/22 04:43 Labs: Laboratory Results - last 24 hr 07/25/22 04:51: Diff Path Review Reviewed 07/26/22 01:35: Vitamin B12 1592 H 07/26/22 07:10: Diff Path Review Reviewed 07/29/22 04:43: WBC 15.1 H, RBC 2.64 L, Hgb 8.0 L, Hct 25.7 L, MCV 97.3 H, MCH 30.3, MCHC 31.1 L D, RDW Std Deviation 59.0 H, RDW Coeff of Foster 16.7 H, Plt Count 36 L*, MPV TNP, Neut % (Auto) Not Reportable, Absolute Neuts (auto) 13.2 H , Absolute Lymphs (auto) 0.61 L, Total Counted 100, Neutrophils % (Manual) 81 H, Band Neutrophils % 6 H, Lymphocytes % (Manual) 4 L, Monocytes % (Manual) 2, Metamyelocytes % 3 H, Myelocytes % 3 H, Promyelocytes % 1 H, Nucleated RBCs/100 WBC 3, Diff Path Review Reviewed, Platelet Estimate MKD DEC, Anisocytosis RARE, Microcytosis RARE 07/29/22 04:43: Sodium 141, Potassium 3.8, Chloride 110 H, Carbon Dioxide 22.0, Anion Gap 9, BUN 54 H, Creatinine 1.41 H, Estim Creat Clear Calc 40.37, Est GFR (MDRD) Af Amer 63, Est GFR (MDRD) Non-Af 52 L, BUN/Creatinine Ratio 38.3 H, Glucose 205 H, Calcium 8.5 Micro: Microbiology 07/24/22 12:20 Blood Culture (Wb) - Anticubital Left Blood Culture - Final No growth in 5 days. 07/24/22 17:00 Sputum, Expectorated/Coughed Gram Stain - Final 07/24/22 17:00 Sputum, Expectorated/Coughed Respiratory Culture - Final Staphylococcus aureus 07/24/22 16:45 Urine Catheter - Catheter Legionella Antigen - Final 07/24/22 16:45 Urine Catheter - Catheter Streptococcus pneumoniae Antigen (M - Final 07/24/22 12:52 Mucosa - Nasopharyngeal Respiratory Panel (PCR) - Final 07/24/22 Unknown Nasal Secretion SARS-CoV-2 Antigen (Rapid) - Final Physical Exam Const Constitutional Narrative: Patient is somnolent, he does not respond to verbal stimuli at the time my examination, his respirations are rapid and he is tachycardic HEENT head/scalp atraumatic Eyes conjunctivae normal Neck supple and no JVD Resp Resp Narrative: Patient has rapid shallow respirations, expiratory rhonchi are noted bilateral Auscultation: rhonchi Cardio S1 normal heart sound and S2 normal heart sound Cardio Narrative: Heart rate and rhythm is tachycardic, it is irregular GI soft to palpation, non-tender and non-distended Extremity normal to inspection Neuro CN's II-XII intact bilaterally Psych Psych Narrative: Patient is somnolent, he does not respond to verbal stimulation at the time my exam Assessment & Plan Assessment/Plan (1) Pneumonitis: (2) Pancytopenia due to antineoplastic chemotherapy: (3) Pneumonia: PLAN: Plan 1. 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 Complicates care, recovery, management, and prognosis. I talked briefly with Dr. Del Rio concerning his care today #4 chronic atrial fibrillation-currently under good rate control #5 hypercoagulable state secondary to chronic atrial fibrillation and underlying cancer-patient's Eliquis is being held due to low platelet count #6 history of bladder carcinoma with cystectomy-patient has an ileostomy #7 GERD-patient is on a PPI #8 past history of prostate cancer-according to oncology, this is not an active oncological problem #9 pancytopenia-corrected at this time high-patient has bicytopenia at this time with a low platelet count and hemoglobin, labs will be monitored #10 diarrhea-possibly secondary to colitis from Keytruda, this is resolved at this time, I have stopped his Bentyl and Imodium #11 acute sepsis-secondary to staph aureus pneumonia-continue present antibiotic treatment #12 possible pneumonitis secondary to Keytruda-patient is on IV corticosteroids at this time, oncology is participating in his care as well as pulmonary medicine. #13 acute respiratory distress syndrome secondary to staff aureus pneumonia and pneumonitis from Keytruda Total clinical time spent by myself addressing the patient's medical issues, r eviewing all his data, and collaborating with patient's care team: 38 minutes Charges/Coding Visit Charges Inpatient E&M: 96608 Subs Hosp L2
--- NOTE | 2022-07-29 17:21 | CHAPLAIN ---
Type of Pastoral Visit ___ Initial Visit ___ Follow-up Visit ___ On-call Visit ___ General Patient Visit ___ Spiritual Assessment ___ Family Conference _x__ Bereavement ___ Rapid Response ___ Code Blue ___ Other (describe below) Pastoral Care Referral From ___ Patient ___ Family ___ Nurse ___ Physician ___ Fruit Dumper ___ Scaler _x__ Other (describe below) Sacrament/Intervention _x__ Active listening ___ Anointing ___ Uatsdin ___ Bereavement ___ Communion ___ Shawna exploration ___ ___ Life review ___ Prayer ___ Reconciliation ___ Sacrament of Sick _x__ Supportive presence ___ Wedding ___ Other (describe below) Pastoral Comments of patient; spouse is last family member left in the room; offer of presence and sympathy received by ; is talkative with life review and expressions of shawna in [employer] and [employer]; spouse is waiting for home personnel to arrive;
[2022-07-30 09:30] LABS: Pathologist Review Reviewed
[2022-07-30 09:38] LABS: Pathologist Review Reviewed
[2022-07-30 09:39] LABS: Pathologist Review Reviewed
[2022-07-30 17:07] LABS: Folate, Hemolysate Test > 620.0 ng/mL (Not Estab.); Folate, RBC (Hct) Test 24.6 % (37.5-51.0)
== END 2022-07-29 17:40 | DRG 871 ==
LOC: ED 12:52 → MS3 14:04 → ICU 07-28 18:26
PROVIDERS: Hospitalist; Internal Medicine Critical Care Medicine; Internal Medicine Hematology & Oncology; Admitting Provider Internal Medicine; Emergency Provider Emergency Medicine; PCP Family Medicine; Visit Provider Internal Medicine
DX: A41.9 Sepsis, unspecified organism (principal); J15.211 Pneumonia due to Methicillin susceptible Staphylococcus aureus; J80 Acute respiratory distress syndrome; J15.20 Pneumonia due to staphylococcus, unspecified; D61.810 Antineoplastic chemotherapy induced pancytopenia; C79.51 Secondary malignant neoplasm of bone; N17.9 Acute kidney failure, unspecified; I48.20 Chronic atrial fibrillation, unspecified; C34.90 Malignant neoplasm of unspecified part of unspecified bronchus or lung; C78.00 Secondary malignant neoplasm of unspecified lung; D68.69 Other thrombophilia; N30.00 Acute cystitis without hematuria; C67.9 Malignant neoplasm of bladder, unspecified; I46.9 Cardiac arrest, cause unspecified; Z93.2 Ileostomy status; D63.8 Anemia in other chronic diseases classified elsewhere; K21.9 Gastro-esophageal reflux disease without esophagitis; I10 Essential (primary) hypertension; M19.90 Unspecified osteoarthritis, unspecified site; D50.0 Iron deficiency anemia secondary to blood loss (chronic); K52.9 Noninfective gastroenteritis and colitis, unspecified; F41.9 Anxiety disorder, unspecified; Z82.3 Family history of stroke; Z79.01 Long term (current) use of anticoagulants; Z80.3 Family history of malignant neoplasm of breast; T45.1X5A Adverse effect of antineoplastic and immunosuppressive drugs, initial encounter; Z79.82 Long term (current) use of aspirin; Z79.899 Other long term (current) drug therapy; Z66 Do not resuscitate; Z51.5 Encounter for palliative care; Z85.51 Personal history of malignant neoplasm of bladder; Z85.46 Personal history of malignant neoplasm of prostate
CPT/HCPCS: 36415; 36591; 71045; 71250; 80048; 80053; 80202; 82607; 82728; 82746; 82747; 83540; 83550; 83605; 83880; 84484; 85014; 85025; 85045; 87040; 87070; 87077; 87186; 87205; 87449; 87633; 87635; 87641; 87811; 93005; 94003; 94640; 94660; 94762; 99251; 99285; J7040; J7050; A4216; G0463; J1447; J1940; U0003; U0005